=== PATIENT | male | born 1945 | race African-American/Black ===

== ENCOUNTER 2019-11-05 14:42 | Inpatient (IN) | payer OTHER, MEDICARE ==
[~2019-11-05] VITALS: Ht 180.3 cm; Wt 87.8 kg
--- NOTE | 2019-11-05 14:51 | Emergency Room Report ---
History of Present Illness General Source: Patient, EMS Present Illness HPI Patient is a 74-year-old male brought in by EMS for chest pain. Onset of symptoms 1 hour prior to arrival. Prior history of bilateral lower extremity ulcers and gangrene. Patient was sent in from [facility]. Has been having increased difficulty with breathing. Patient is chronically bedridden. Primary care physician is Dr. Zenon Bradley. Allergies: Coded Allergies: No Known Allergies (Unverified , 11/05/19) Patient History Past Medical History: see triage record Reviewed Nursing Documentation: PMH: Agreed; PSxH: Agreed Review of Systems All Other Systems: limited - Limited by poor cooperation. Physical Exam General Appearance: alert, Chronically Ill Neck: limited range of motion Respiratory: chest non-tender, decreased breath sounds Cardiovascular #1: edema - Bilateral lower extremity edema and discoloration with foul smell Gastrointestinal: hernia - Ventral hernia easily reducible, other Neurologic: alert, oriented x3, motor weakness - Lateral lower extremity weakness Skin: other - Lateral lower extremity discoloration and rash. Medical Decision Making Diagnostic Impression: Primary Impression: Chest pain Additional Impressions: Urinary tract infection Atrial fibrillation with RVR Suspected 2019 novel coronavirus infection ER Course Patient presented for chest discomfort. Differential diagnosis include was not limited to sepsis, pneumonia, pulmonary embolism, coronavirus infection among others. Because of complexity of patient's case laboratory tests and imaging studies were ordered. EKG interpreted by me showed atrial fibrillation with a rate Patient's troponin was noted to be somewhat elevated. D-dimer was also positive. Troponin was noted to be elevated. Chest x-ray 1 view interpreted by me showed right-sided effusion with bilateral patchy hazy infiltrate. Patient discussed with Dr. Bradley who agreed to admit the patient for further evaluation and treatment. Labs Test 11/05/19 15:48 Urine Color Yellow Urine Appearance Slightly cloudy Urine pH 5 (4.5-8.0) Urine Specific [place] 1.015 (1.005-1.035) Urine Protein 3+ (NEGATIVE) Urine Glucose (UA) Negative (NEGATIVE) Urine Ketones Negative (NEGATIVE) Urine Blood 4+ (NEGATIVE) Urine Nitrite Negative (NEGATIVE) Urine Bilirubin 1+ (NEGATIVE) Urine Ictotest Negativ e (NEGATIVE) Urine Urobilinogen 8 MG/DL (0.0-1.0) Urine Leukocyte Esterase 3+ (NEGATIVE) Urine RBC 10-15 /HPF (0 - 0) Urine WBC 40-60 /HPF (0 - 0) Urine Squamous Epithelial Cells Occasional /LPF Urine Amorphous Sediment Many /LPF (NONE) Urine Bacteria Many /HPF (NONE) EKG Diagnostic Results Rate: other - Atrial fibrillation Status: unchanged Disposition: ADMITTED INPATIENT Condition: Serious Stephon Ardon MD Nov 05, 2019 14:51
[2019-11-05] MEDS ORDERED: ARGINAID POWDE1 EACH PO (15:20)
[2019-11-05] MEDS ORDERED: BACITRACIN ZIN1 EACH TOPIC (15:20)
[2019-11-05] MEDS ORDERED: ELIQUIS2.5 MG PO (15:20)
[2019-11-05] MEDS ORDERED: BETADINE1 EAC1 TP (16:04)
[2019-11-05] MEDS ORDERED: COLLAGENASE1 EACH MC (16:10)
[2019-11-05] MEDS ORDERED: IBUPROFEN600 M1 ORAL (16:10)
[2019-11-05] MEDS ORDERED: DIGOXIN125 MCG ORAL (16:10)
[2019-11-05] MEDS ORDERED: NORCO 10-325 T1 EACH ORAL (16:10)
[2019-11-05] MEDS ORDERED: NORCO 5-325 TA1 EAC1 ORAL (16:10)
[2019-11-05] MEDS ORDERED: FUROSEMIDE40 MG ORAL (16:10)
[2019-11-05] MEDS ORDERED: NEPHROVITE1 TAB ORAL (16:10)
[2019-11-05] MEDS ORDERED: COREG3.125 MG ORAL (16:10)
[2019-11-05] MEDS ORDERED: GLUCAGON EMERGEN1 MG IJ (16:10)
[2019-11-05] MEDS ORDERED: HYDROGEL3000 GM MC (16:10)
[2019-11-05] MEDS ORDERED: FAMOTIDINE20 MG ORAL (16:10)
[2019-11-05 16:12] LABS: APPEARANCE,URINE SLIGHTLY CLOUDY; BILIRUBIN, URINE 1+ (NEGATIVE); GLUCOSE, URINE (UA) NEGATIVE (NEGATIVE); KETONES,URINE NEGATIVE (NEGATIVE); LEUKOCYTE ESTERASE ,URINE 3+ (NEGATIVE); NITRITE,URINE NEGATIVE (NEGATIVE); PH,URINE 5 (4.5-8.0); PROTEIN,URINE 3+ (NEGATIVE); UROBILINOGEN,URINE 8 MG/DL (0.0-1.0)
[2019-11-05 16:14] LABS: COLOR,URINE YELLOW
[2019-11-05] MEDS ORDERED: ZINC SULFATE220 M1 ORAL (16:27)
[2019-11-05] MEDS ORDERED: FLOMAX0.4 MG ORAL (16:27)
[2019-11-05] MEDS ORDERED: SPIRONOLACTONE100 MG ORAL (16:27)
[2019-11-05] MEDS ORDERED: ZOFRAN4 M3 ORAL (16:27)
[2019-11-05 16:59] LABS: ANION GAP 4 mmol/L (5-15); BLOOD UREA NITROGEN 40 mg/dL (7-18); CALCIUM 7.8 MG/DL (8.5-10.1); CARBON DIOXIDE 33 MMOL/L (21-32); CHLORIDE 95 MMOL/L (98-107); POTASSIUM 3.8 MMOL/L (3.5-5.1); SODIUM 132 MMOL/L (136-145)
[2019-11-05 17:00] LABS: INR 1.6 (0.9-1.1)
[2019-11-05 17:15] LABS: HEMATOCRIT 31.7 % (42.0-52.0); HEMOGLOBIN 9.8 G/DL (14.2-18.0); MEAN CORPUSCULAR VOLUME 93 FL (80-99); PLATELET COUNT 123 K/UL (150-450); WHITE BLOOD COUNT 5.7 K/UL (4.8-10.8)
[2019-11-05 17:16] LABS: ALANINE AMINOTRANSFERASE 23 U/L (12-78); ALBUMIN 1.3 G/DL (3.4-5.0); ALBUMIN/GLOBULIN RATIO 0.3 (1.0-2.7); ALKALINE PHOSPHATASE 136 U/L (46-116); ASPARTATE AMINO TRANSFERASE 29 U/L (15-37); BILIRUBIN,TOTAL 2.1 MG/DL (0.2-1.0)
[2019-11-05 17:17] LABS: BILIRUBIN,DIRECT 1.8 MG/DL (0.0-0.3)
[2019-11-05 17:49] VITALS: BP 135/78
[2019-11-05] MEDS ORDERED: Morphine Sulfate 2mg/ml Inj(IV/IM USE ONLY) IVP ONE (18:15)
[2019-11-05] MEDS ORDERED: Aspirin Baby 81mg ORAL ONE (18:15)
[2019-11-05] MEDS ORDERED: Enoxaparin 80mg Inj SUBQ ONE (18:15)
[2019-11-05] MEDS ORDERED: Piperacillin/Tazobactam 3.375 GM in NS 110 ML IVPB ONE (18:30)
[2019-11-05 19:50] VITALS: BP 118/43
[2019-11-05] MEDS ORDERED: HYDROcodone/Acetamin 5/325 tab ORAL ONE (20:15)
[2019-11-05 21:30] VITALS: BP 98/51
--- NOTE | 2019-11-05 23:08 | Diagnostic Imaging Report ---
EXAM: XR Abdomen, 2 Views CLINICAL HISTORY: NGT TECHNIQUE: Frontal view of the abdomen/pelvis with upright view of the abdomen. COMPARISON: chest radiograph 4 hours previous FINDINGS: Intraperitoneal space: No free air. Gastrointestinal tract: Gas-filled small and large bowel loops limited in evaluation. Bones/joints: Please refer to immediate prior chest radiograph for discussion of chest findings. Degenerative spine findings. Tubes, lines and devices: Enteric tube with tip and proximal sideport below the gastroesophageal junction. IMPRESSION: 1. Enteric tube with tip and proximal sideport below the gastroesophageal junction. 2. Please refer to immediate prior chest radiograph for discussion of chest findings. 3. Gas-filled small and large bowel loops limited in evaluation.
--- NOTE | 2019-11-05 23:10 | Diagnostic Imaging Report ---
EXAM: XR Chest, 1 View CLINICAL HISTORY: S/P INTUB TECHNIQUE: Frontal view of the chest. COMPARISON: 4 hours prior FINDINGS: Lungs: Overall similar appearing bilateral extensive lung opacities concerning for multifocal pneumonia and/or pulmonary edema in the proper context. Unchanged retrocardiac atelectasis or consolidation. Pleural space: Unchanged moderate right and trace left pleural effusions with passive atelectasis. No pneumothorax. Heart: Unremarkable. No cardiomegaly. Mediastinum: Unremarkable. Bones/joints: Unremarkable. Tubes, lines and devices: Interval intubation, ETT 5.7 cm above stefanie. Enteric tube with tip and proximal sideport below the gastroesophageal junction. IMPRESSION: 1. Interval intubation, ETT 5.7 cm above stefanie. 2. Enteric tube with tip and proximal sideport below the gastroesophageal junction. 3. Overall similar appearing bilateral extensive lung opacities concerning for multifocal pneumonia and/or pulmonary edema in the proper context. 4. Unchanged moderate right and trace left pleural effusions with passive atelectasis. 5. Unchanged retrocardiac atelectasis or consolidation.
--- NOTE | 2019-11-05 23:24 | Emergency Room Report ---
History of Present Illness General Chief Complaint: Chest Pain Source: Medical Record, EMS Present Illness HPI This is a 74-year-old male, half-way patient, who was just admitted to telemetry for sepsis and lower extremity gangrene. A CODE BLUE was called because patient became very bradycardic and blood pressure dropped. Patient also stopped breathing. On my arrival, he has assisted respiration with bag valve mask by technical architect. I proceeded to intubate the patient. I also placed a central line in case he need pressors. Patient was sent to the ICU. Primary care doctor notified. Allergies: Coded Allergies: No Known Allergies (Unverified , 11/05/19) COVID-19 Screening Contact w/high risk pt: No Recent Travel to affected area: No Experienced COVID-19 symptoms?: No COVID-19 Testing performed NATIONAL FACILITIES MANAGER: No Patient History Past Medical History: see triage record, old chart reviewed Past Surgical History: other Pertinent Family History: none Social History: Denies: smoking Immunizations: other Reviewed Nursing Documentation: PMH: Agreed; PSxH: Agreed Nursing Documentation-PMH Past Medical History: No History, Except For Hx Cardiac Problems: Yes - A FIB, CHF Hx Hypertension: Yes Hx COPD: No - PLEURAL EFFUSION Hx Gastrointestinal Problems: No - ENCEPHALOPATHY, GANGRENE, MULT PRESSURE ULCERS, AKD History Of Psychiatric Problem: Yes - SUBSTANCE ABUSE Hx Cerebrovascular Accident: No - DYSPHAGIA, PROSTATIC HYPERPLASIA Review of Systems Respiratory: Reports: shortness of breath All Other Systems: limited - Secondary to his condition Physical Exam Vital Signs Date Time Temp Pulse Resp B/P (MAP) Pulse Ox O2 Delivery O2 Flow Rate FiO2 11/05/19 14:47 98.4 92 18 130/76 (94) 94 Nasal Cannula 2.0 11/05/19 22:25 100 Vitals with hypotension and hypoxia Sp02 EP Interpretation: abnormal General Appearance: severe distress, Stupor Head: normocephalic, atraumatic Eyes: bilateral eye PERRL, bilateral eye EOMI ENT: dry mucus membranes - Mucus in oropharynx, other Neck: full range of motion, supple, no meningismus Respiratory: chest non-tender, crackles, rhonchi Cardiovascular #1: regular rate, rhythm, no murmur Gastrointestinal: normal bowel sounds, non tender, no mass, no organomegaly, no bruit, non-distended Musculoskeletal: other - Gangrene to lower extremities Neurologic: no pronator Skin: warm/dry Procedures Critical Care Time Critical Care Time Critical care is mandated in this patient who presented with aspiratory collapse. Patient require my urgent intervention to attenuate the risks of metabolic collapse which may lead to cardiovascular collapse and . Critical care time is 35 minutes excluding any reportable procedure. Critical care time included evaluation, multiple reevaluation, looking at old charts, interpreting laboratory and diagnostic data, discussing case with patient and family and consultants, and charting. Central Line Central Line : Consent: Emergent Central Line Lumen: triple Maximal Sterile Barrier Tech: yes cap, yes mask, yes sterile gown, yes sterile gloves, yes large sterile sheet, yes hand hygiene, yes chlorhexidine prep Central Line Postion: femoral (R) Complications: none Central Line Post Position: sutured Attempts: One Patient Tolerated: Well Complications: None Intubation Intubation : Consent: Verbal Intubation Method: orotracheal Tube Size (cm): 7.5 Breath Sounds after Intubation: equal Intubation Complications: no complications Post Intubation Xray: Yes Progress/Xray Impression: Endotracheal tube in good position. Bilateral infiltrates. No pneumothora Attempts: One Patient Tolerated: Well Complications: None Medical Decision Making Diagnostic Impression: Primary Impression: Respiratory failure requiring intubation Additional Impressions: Septic shock HCAP (healthcare-associated pneumonia) ER Course Patient with respiratory arrest requiring intubation. Most likely secondary to septic shock and pneumonia. May have COVID pneumonia. Patient intubated and central line placed. Patient transferred in ICU. Chest X-Ray Diagnostic Results Chest X-Ray Diagnostic Results : Chest X-Ray Ordered: Yes # of Views/Limited/Complete: 1 View Indication: Shortness of Breath EP Interpretation: Yes Interpretation: no effusion, no pneumothorax, other - Bilateral infiltrates. Endotracheal tube at sternal notch. Impression: Other - Status post intubation. Bilateral infiltraits. Electronically Signed by: Rancho Clay MD Last Vital Signs Date Time Temp Pulse Resp B/P (MAP) Pulse Ox O2 Delivery O2 Flow Rate FiO2 11/05/19 22:25 88 16 100 11/05/19 22:25 98 Mechanical Ventilator 11/05/19 21:25 98.4 118/43 2.0 Status: improved Disposition: ADMITTED INPATIENT Condition: Critical Referrals: Zenon Bradley MD (PCP) Rancho Clay MD Nov 05, 2019 23:24
[2019-11-06] VITALS (51 sets, daily range): BP systolic 82–169; BP diastolic 37–155
[2019-11-06 05:23] LABS: HEMATOCRIT 27.6 % (42.0-52.0); HEMOGLOBIN 9.2 G/DL (14.2-18.0); MEAN CORPUSCULAR VOLUME 86 FL (80-99); PLATELET COUNT 88 K/UL (150-450); RED CELL DISTRIBUTION WIDTH 13.8 % (11.6-14.8); WHITE BLOOD COUNT 5.2 K/UL (4.8-10.8)
[2019-11-06 05:51] LABS: ALANINE AMINOTRANSFERASE 25 U/L (12-78); ALBUMIN 1.3 G/DL (3.4-5.0); ALBUMIN/GLOBULIN RATIO 0.3 (1.0-2.7); ALKALINE PHOSPHATASE 123 U/L (46-116); ANION GAP 5 mmol/L (5-15); ASPARTATE AMINO TRANSFERASE 27 U/L (15-37); BILIRUBIN,TOTAL 2.3 MG/DL (0.2-1.0); BLOOD UREA NITROGEN 42 mg/dL (7-18); CALCIUM 7.4 MG/DL (8.5-10.1); CARBON DIOXIDE 32 MMOL/L (21-32); CHLORIDE 95 MMOL/L (98-107); CREATININE 2.3 MG/DL (0.55-1.30); POTASSIUM 3.4 MMOL/L (3.5-5.1); SODIUM 132 MMOL/L (136-145)
--- NOTE | 2019-11-06 08:45 | History and Physical Report ---
DATE OF ADMISSION: 11/05/2019 This is the first admission to [facility] of this 74-year-old patient because of sepsis and suspicion of COVID syndrome. HISTORY OF PRESENT ILLNESS: The patient is a resident of an extended care facility from where he arrived in the facility several weeks ago. He is known to have several chronic medical syndrome, has been stable on his current medication. On the day of admission, developed chest pain intermittently, was getting progressively worse. He was transferred to [facility] ER where he was found to have urinary tract infection, sepsis, and pneumonia. He was transferred initially to the subacute unit. subacute, he developed hypotension, bradycardia, he had to be intubated and placed on mechanical ventilation and now is in the ICU. PAST MEDICAL HISTORY: The patient has cerebrovascular accident in the past. He has high blood pressure, COPD, atrial fibrillation, and history of congestive heart failure. In the ER, he was found to have pleural effusion. His response was encephalopathic. His lower extremities show multiple dry gangrene in addition to multiple skin ulcers on the lower extremity. ALLERGIES: No known drug allergy. MEDICATIONS: The patient has intense treatment for his decubitus ulcer. He is on 2.5 mg b.i.d. He is on carvedilol 3.125 mg b.i.d. He is on digoxin 0.125 mg daily, famotidine 20 mg b.i.d., furosemide 40 mg daily. He is on ibuprofen 600 mg t.i.d., ondansetron 4 mg q.4h. p.r.n. for nausea and vomiting, spironolactone 100 mg daily, tamsulosin 0.4 mg daily, vitamin B 50 mg daily, and zinc sulfate 220 mg daily. FAMILY HISTORY: Not contributory. SOCIAL HISTORY: He is single. Born in [place]. 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 HABITS: The patient did not smoke, drink, or use illicit drugs. REVIEW OF SYSTEMS: The patient is unable to give any information regarding his state of health. PHYSICAL EXAMINATION: VITAL SIGNS: Blood pressure prior to the intubation was 116/43, his pulse is 110, respirations are 21, and temperature 98.4. HEENT: Eyes were normal. Pupils were round, equal, and reactive to light. Sclerae were white. Conjunctivae were pale. Extraocular movements could not assessed. Temporal arteries were palpable bilaterally. There was no bilateral temporal wasting. Visual field to confrontation and neglect sign could not be assessed. ENT, mucous membranes were not dehydrated. Auditory canals were clear and tympanic membranes could not be visualized. Nasal cavity was not congested. Nasal septum was intact. Soft palate and uvula could not be visualized. Tongue was dry, midline, and normally papillated. NECK: Supple. There was no goiter. No mass. No lymphadenopathy. There was no JVD. No bruits. Carotid upstroke was 1+. LUNGS: There were bilateral rhonchi at both bases. HEART: PMI was fifth left intercostal space, midclavicular line with irregular heart sounds and no bruits. ABDOMEN: Soft and nontender without organomegaly. There were no masses palpable. Normal bowel sounds without bruits. There was no guarding. No rebound tenderness. No ascites. No hernia. No CVA tenderness. Liver span was 8 cm, smooth, and nontender. EXTREMITIES: No cyanosis, no clubbing, and no edema. Extremities were in dressing. It was done meticulously in the emergency room with instructions not to remove the dressing for the next 24 hours. NEUROLOGICAL: Reflexes in biceps, triceps, and brachioradialis were present. Patellar retinaculum could not be obtained. Plantars were in extension on the right and flexion on the left. Cranial nerves II through XII were symmetric and equal. Cerebellar function, there was no tremor. No nystagmus. No extrapyramidal rigidity. Sensory exam to pinprick, cotton touch, position, and motor strength could not be assessed because the patient's clinical condition. LABORATORY AND DIAGNOSTIC DATA: Hemoglobin is 9.8, hematocrit 31.2 with MCV of 93, WBC of 5.7, and platelets 123,000. His BUN and creatinine are 40 and 2.0 respectively. His sodium is 132, potassium is 3.8, chloride 95, CO2 is 33. His calcium is 7.8. His total bilirubin is 2.1. His troponin was . His CRP was 18.8. His albumin is 1.3 and total protein is 5.6. No imaging study available at the time of my dictation. His lactic acid is 1.3. IMPRESSION: The patient septic shock. He was intubated and placed on mechanical ventilation 500 of 18, FiO2 of 30, and PEEP of 5. Pulmonary senior wind energy consultant, infectious disease senior wind energy consultant, and nephrology senior wind energy consultant will be called to assist in the management of this case. Repeat laboratory tests will be done in a.m. The patient is diabetic. A1c will be requested. Accu-Chek q.6h. NG tube will be inserted. Zenon Bradley M.D. DR: YOSELIN JOB#: [id number] CC:
--- NOTE | 2019-11-06 09:10 | Diagnostic Imaging Report ---
Procedure: XRAY Chest 1v Reason for study: Chest pain Comparison films: None. FINDINGS: A single one view chest is obtained. Vascular markings are indistinct. Diffuse bilateral alveolar densities noted suggestive of pulmonary edema. Superimposed infiltrates cannot be excluded. Cardiac silhouette is partially obscured. There are bilateral effusions right greater than left. The bony thorax appear unremarkable. IMPRESSION: Bilateral diffuse alveolar densities likely pulmonary edema. Superimposed infiltrates cannot be excluded. Bilateral effusions right greater than left.
[2019-11-06] MEDS ORDERED: LORazepam Inj 2mg/ml 1ml IV PRN (11:00)
[2019-11-06] MEDS ORDERED: Albuterol/Ipratropium 3ml neb HHN PRN (11:00)
--- NOTE | 2019-11-06 11:07 | Consultation ---
History of Present Illness General Date patient seen: Nov 06, 2019 Chief Complaint: Chest Pain Present Illness HPI 74 year old male with Hx of CHF, pleural effusion, COPD, multiple dry gangrene of lower extremities, assisted resident brought in by paramedics with CC or chest pain. He was found to be in pulmonary edema and was admitted to [facility]. Shortly after arrival he had a cardiac arrest and was revived, intubated and transferred to ICU. Allergies: Coded Allergies: No Known Allergies (Unverified , 11/05/19) Medication History Scheduled Bacitracin Zinc* (Bacitracin Zinc*), 1 APPLIC TOPIC THREE TIMES A DAY, (Reported ) Carvedilol (Coreg), 3.125 MG ORAL EVERY 12 HOURS, (Reported) Digoxin* (Digoxin*), 125 MCG ORAL DAILY, (Reported) Famotidine* (Pepcid 20mg tablet*), 20 MG ORAL DAILY, (Reported) Furosemide* (Lasix*), 40 MG ORAL DAILY, (Reported) Ibuprofen* (Motrin*), 200 MG ORAL Q4HR, (Reported) Spironolactone* (Spironolactone*), 100 MG ORAL DAILY, (Reported) Tamsulosin HCl (Flomax), 0.4 MG ORAL DAILY, (Reported) Vitamin B Cmplx/Vit C/Folic AC (Nephro-Aishwarya Tablet), 1 TAB ORAL DAILY, (Reported ) Zinc Sulfate (Zinc Sulfate*), 220 MG ORAL DAILY, (Reported) Scheduled PRN Hydrocodone Bit/Acetaminophen 10-325* ([place] 10-325*), 1 TAB ORAL Q6H PRN for For Pain, (Reported) Hydrocodone Bit/Acetaminophen 5-325* ([place] 5-325 Tablet*), 1 TAB ORAL Q6H PRN for FOR PAIN, (Reported) Ondansetron* (Zofran*), 4 MG ORAL Q6H PRN for Nausea & Vomiting, (Reported) Miscellaneous Medications Apixaban (Eliquis), 2.5 MG PO, (Reported) Arginine/Ascorbate Sod/Aishwarya AC (Arginaid Powder), 1 EACH PO, (Reported) Collagenase Clostridium Hist. (Collagenase), 1 EACH MC, (Reported) Gel Base No.41 (Hydrogel), 3,000 GM MC, (Reported) Glucagon,Human Recombinant (Glucagon Emergency Kit), 1 MG IJ, (Reported) Povidone-Iodine (Betadine), 1 EACH TP, (Reported) Patient History Healthcare decision maker N Resuscitation status Advanced Directive on File Past Medical/Surgical History Past Medical/Surgical History: (1) Alzheimer disease (2) Dry gangrene (3) Cerebrovascular accident (CVA) (4) COPD (chronic obstructive pulmonary disease) Review of Systems All Other Systems: negative except mentioned in HPI Physical Exam General Appearance: WD/WN, no apparent distress Lines, tubes and drains: peripheral, central line HEENT: normocephalic, atraumatic Neck: non-tender, normal alignment Respiratory/Chest: chest wall non-tender, lungs clear Breasts: no masses Cardiovascular/Chest: normal peripheral pulses, normal rate Abdomen: normal bowel sounds, non tender Genitourinary/Rectal: normal genital exam, normal rectal exam Extremities: normal range of motion Last 24 Hour Vital Signs Date Time Temp Pulse Resp B/P (MAP) Pulse Ox O2 Delivery O2 Flow Rate FiO2 11/06/19 10:00 92 17 112/47 (68) 97 11/06/19 09:30 92 19 109/41 (63) 100 11/06/19 09:00 94 18 108/55 (72) 99 11/06/19 08:30 92 17 119/48 (71) 98 11/06/19 08:00 95 11/06/19 08:00 Mechanical Ventilator 11/06/19 08:00 100 11/06/19 08:00 99.1 88 17 118/44 (68) 100 11/06/19 07:30 88 16 119/47 (71) 98 11/06/19 07:07 83 16 40 11/06/19 07:00 89 16 109/50 (69) 97 11/06/19 06:30 90 18 117/40 (65) 100 11/06/19 06:00 87 16 111/47 (68) 100 11/06/19 06:00 111/47 11/06/19 05:34 119/57 11/06/19 05:30 89 17 119/57 (77) 99 11/06/19 05:00 87 17 127/47 (73) 99 11/06/19 05:00 127/47 11/06/19 04:30 93 18 106/54 (71) 98 11/06/19 04:00 98.6 89 16 103/52 (69) 98 11/06/19 04:00 103/52 11/06/19 04:00 100 11/06/19 04:00 Mechanical Ventilator 11/06/19 04:00 86 11/06/19 03:30 99 21 131/92 (105) 98 11/06/19 03:00 97 24 137/59 (85) 100 11/06/19 03:00 137/59 11/06/19 02:57 99 24 40 11/06/19 02:30 89 16 133/92 (106) 100 11/06/19 02:00 89 18 125/86 (99) 100 11/06/19 02:00 125/86 11/06/19 01:30 97 22 114/56 (75) 73 11/06/19 01:00 100 19 117/73 (88) 100 11/06/19 01:00 117/73 11/06/19 00:45 101 17 169/155 (160) 100 11/06/19 00:45 169/155 11/06/19 00:30 97 17 152/97 (115) 100 11/06/19 00:03 68/45 11/06/19 00:00 100 11/06/19 00:00 98.6 94 20 107/77 (87) 99 11/06/19 00:00 97 11/05/19 22:25 88 16 100 11/05/19 22:25 88 16 98 Mechanical Ventilator 100 11/05/19 21:30 98.3 61 18 98/51 (67) 96 61 11/05/19 21:30 Room Air 11/05/19 21:25 98.4 108 21 118/43 98 Nasal Cannula 2.0 11/05/19 20:46 98.4 11/05/19 19:50 98.4 108 21 118/43 98 Nasal Cannula 2.0 11/05/19 18:45 98.4 11/05/19 17:50 92 18 Nasal Cannula 2.0 11/05/19 17:49 98.4 98 18 135/78 98 Nasal Cannula 2.0 11/05/19 14:47 98.4 92 18 130/76 (94) 94 Nasal Cannula 2.0 Intake and Output 11/05/19 11/06/19 19:00 07:00 Intake Total 1057.500 ml Output Total 160 ml Balance 897.500 ml Intake Free Water 60 ml IV Total 997.500 ml Output Urine Total 160 ml # Voids 1 Laboratory Tests Test 11/05/19 15:48 11/05/19 16:15 11/05/19 23:30 11/06/19 04:00 Urine Color Yellow Urine Appearance Slightly cloudy Urine pH 5 (4.5-8.0) Urine Specific [place] 1.015 (1.005-1.035) Urine Protein 3+ (NEGATIVE) H Urine Glucose (UA) Negative (NEGATIVE) Urine Ketones Negative (NEGATIVE) Urine Blood 4+ (NEGATIVE) H Urine Nitrite Negative (NEGATIVE) Urine Bilirubin 1+ (NEGATIVE) H Urine Ictotest Negativ e (NEGATIVE) Urine Urobilinogen 8 MG/DL (0.0-1.0) H Urine Leukocyte Esterase 3+ (NEGATIVE) H Urine RBC 10-15 /HPF (0 - 0) H Urine WBC 40-60 /HPF (0 - 0) H Urine Squamous Epithelial Cells Occasional /LPF Urine Amorphous Sediment Many /LPF (NONE) H Urine Bacteria Many /HPF (NONE) H White Blood Count 5.7 K/UL (4.8-10.8) 5.2 K/UL (4.8-10.8) Red Blood Count 3.40 M/UL (4.70-6.10) L 3.20 M/UL (4.70-6.10) L Hemoglobin 9.8 G/DL (14.2-18.0) L 9.2 G/DL (14.2-18.0) L Hematocrit 31.7 % (42.0-52.0) L 27.6 % (42.0-52.0) L Mean Corpuscular Volume 93 FL (80-99) 86 FL (80-99) Mean Corpuscular Hemoglobin 28.7 PG (27.0-31.0) 28.7 PG (27.0-31.0) Mean Corpuscular Hemoglobin Concent 30.7 G/DL (32.0-36.0) L 33.2 G/DL (32.0-36.0) Red Cell Distribution Width 16.0 % (11.6-14.8) H 13.8 % (11.6-14.8) Platelet Count 123 K/UL (150-450) L 88 K/UL (150-450) L Mean Platelet Volume 8.4 FL (6.5-10.1) 6.0 FL (6.5-10.1) L Neutrophils (%) (Auto) % (45.0-75.0) % (45.0-75.0) Lymphocytes (%) (Auto) % (20.0-45.0) % (20.0-45.0) Monocytes (%) (Auto) % (1.0-10.0) % (1.0-10.0) Eosinophils (%) (Auto) % (0.0-3.0) % (0.0-3.0) Basophils (%) (Auto) % (0.0-2.0) % (0.0-2.0) Differential Total Cells Counted 100 100 Neutrophils % (Manual) 90 % (45-75) H 91 % (45-75) H Lymphocytes % (Manual) 4 % (20-45) L 5 % (20-45) L Monocytes % (Manual) 2 % (1-10) 2 % (1-10) Eosinophils % (Manual) 0 % (0-3) 1 % (0-3) Basophils % (Manual) 0 % (0-2) 1 % (0-2) Band Neutrophils 4 % (0-8) 0 % (0-8) Platelet Estimate Decreased L Decreased L Platelet Morphology Normal Normal Hypochromasia 1+ 2+ Anisocytosis 1+ 1+ Prothrombin Time 17.5 SEC (9.30-11.50) H Prothromb Time International Ratio 1.6 (0.9-1.1) H Activated Partial Thromboplast Time 48 SEC (23-33) H D-Dimer 7.10 mg/L FEU (0.00-0.49) H Sodium Level 132 MMOL/L (136-145) L 132 MMOL/L (136-145) L Potassium Level 3.8 MMOL/L (3.5-5.1) 3.4 MMOL/L (3.5-5.1) L Chloride Level 95 MMOL/L (98-107) L 95 MMOL/L (98-107) L Carbon Dioxide Level 33 MMOL/L (21-32) H 32 MMOL/L (21-32) Anion Gap 4 mmol/L (5-15) L 5 mmol/L (5-15) Blood Urea Nitrogen 40 mg/dL (7-18) H 42 mg/dL (7-18) H Creatinine 2.0 MG/DL (0.55-1.30) H 2.3 MG/DL (0.55-1.30) H Estimat Glomerular Filtration Rate 39.5 mL/min (>60) 33.7 mL/min (>60) Glucose Level 120 MG/DL (74-106) H 97 MG/DL (74-106) Lactic Acid Level 1.30 mmol/L (0.4-2.0) Calcium Level 7.8 MG/DL (8.5-10.1) L 7.4 MG/DL (8.5-10.1) L Total Bilirubin 2.1 MG/DL (0.2-1.0) H 2.3 MG/DL (0.2-1.0) H Direct Bilirubin 1.8 MG/DL (0.0-0.3) H 2.0 MG/DL (0.0-0.3) H Aspartate Amino Transf (AST/SGOT) 29 U/L (15-37) 27 U/L (15-37) Alanine Aminotransferase (ALT/SGPT) 23 U/L (12-78) 25 U/L (12-78) Alkaline Phosphatase 136 U/L (46-116) H 123 U/L (46-116) H Troponin I 0.066 ng/mL (0.000-0.056) C-Reactive Protein, Quantitative 18.8 mg/dL (0.00-0.90) H Total Protein 5.6 G/DL (6.4-8.2) L 5.2 G/DL (6.4-8.2) L Albumin 1.3 G/DL (3.4-5.0) L 1.3 G/DL (3.4-5.0) L Globulin 4.3 g/dL 3.9 g/dL Albumin/Globulin Ratio 0.3 (1.0-2.7) L 0.3 (1.0-2.7) L Lipase 76 U/L (73-393) Digoxin Level 1.4 NG/ML (0.5-2.0) Arterial Blood pH 7.457 (7.350-7.450) Arterial Blood Partial Pressure CO2 44.4 mmHg (35.0-45.0) Arterial Blood Partial Pressure O2 199.1 mmHg (75.0-100.0) H Arterial Blood HCO3 30.7 mmol/L (22.0-26.0) H Arterial Blood Oxygen Saturation 98.6 % (95-100) Arterial Blood Base Excess 6.1 (-2-2) H Manny Test Positive Erythrocyte Sedimentation Rate 45 MM/HR (0-20) H Hemoglobin A1c 7.4 % (4.3-6.0) H Pro-B-Type Natriuretic Peptide > 31779 pg/mL (0-125) H Microbiology Date/Time Source Procedure Growth Status 11/05/19 16:20 Blood Blood Culture - Preliminary Resulted 11/05/19 16:10 Blood Blood Culture - Preliminary Resulted 11/05/19 15:48 Urine,Clean Catch Urine Culture - Preliminary Gram Negative Bacillus 1 Resulted Height (Feet): 5 Height (Inches): 11.00 Weight (Pounds): 183 Medications Current Medications Medications (Trade) Dose Ordered Sig/Briana Route PRN Reason Start Time Stop Time Status Last Admin Dose Admin Chlorhexidine Gluconate (Jenna-Hex 2%) 1 applic DAILY@2000 TOPIC 11/06/19 20:00 02/04/20 19:59 Norepinephrine Bitartrate 4 mg/ Dextrose 250 ml @ 0 mls/hr Q24H IV 11/05/19 23:30 12/05/19 23:29 11/06/19 05:34 Sodium Chloride 1,000 ml @ 125 mls/hr Q8H IV 11/05/19 23:45 12/05/19 23:44 11/06/19 08:28 Assessment/Plan Problem List: (1) Respiratory failure requiring intubation ICD Codes: J96.90 - Respiratory failure, unspecified, unspecified whether with hypoxia or hypercapnia; R65.21 - Severe sepsis with septic shock SNOMED: 095709604, 909635287 (2) Cardiac arrest ICD Codes: I46.9 - Cardiac arrest, cause unspecified SNOMED: 603960494 (3) HCAP (healthcare-associated pneumonia) ICD Codes: J18.9 - Pneumonia, unspecified organism SNOMED: 547169468, 631056023 (4) Atrial fibrillation with RVR ICD Codes: I48.91 - Unspecified atrial fibrillation SNOMED: 806797219353171 (5) Suspected 2019 novel coronavirus infection ICD Codes: Z20.828 - Contact with and (suspected) exposure to other viral communicable diseases SNOMED: 947001884 (6) Alzheimer disease ICD Codes: G30.9 - Alzheimer's disease, unspecified; F02.80 - Dementia in other diseases classified elsewhere without behavioral disturbance SNOMED: 36290838 (7) Dry gangrene ICD Codes: I96 - Gangrene, not elsewhere classified SNOMED: 37102049, 926488861 (8) Cerebrovascular accident (CVA) ICD Codes: I63.9 - Cerebral infarction, unspecified SNOMED: 732024868 (9) COPD (chronic obstructive pulmonary disease) ICD Codes: J44.9 - Chronic obstructive pulmonary disease, unspecified SNOMED: 29195548 Assessment/Plan: Respiratory: monitor respiratory rate, adjust FIO2, CXR Cardiac: continue pressors - on Pressures, 2 ugm of Levophed, continue to monitor HR/BP Renal: F/U I&O, keep IV fluid Infectious Disease: add antibiotics, other - price culture Gastrointestinal: continue feedings/current rate Endocrine: monitor blood sugar Hematologic: monitor H/H, transfuse if hgb<8.5 Neurologic: PRN Ativan, keep patient comfortable Affect: PRN ativan Prophylaxis: Protonix Disposition: keep in ICU 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
--- NOTE | 2019-11-06 12:42 | Consultation ---
History of Present Illness General Date patient seen: Nov 06, 2019 Chief Complaint: Chest Pain Present Illness HPI 74 y/o M with hx of CHF, pleural effusion, CVA, dysphagia, BPH, HTN, Afib, COPD , LE dry gangrene, [place] resident ([facility]) presented to ED on 11/04 with chest pain. After arrival to [facility] patient had bradycardic cardiac arrest and was intubated and transferred to ICU. P Allergies: Coded Allergies: No Known Allergies (Unverified , 11/05/19) Medication History Scheduled Bacitracin Zinc* (Bacitracin Zinc*), 1 APPLIC TOPIC THREE TIMES A DAY, (Reported ) Carvedilol (Coreg), 3.125 MG ORAL EVERY 12 HOURS, (Reported) Digoxin* (Digoxin*), 125 MCG ORAL DAILY, (Reported) Famotidine* (Pepcid 20mg tablet*), 20 MG ORAL DAILY, (Reported) Furosemide* (Lasix*), 40 MG ORAL DAILY, (Reported) Ibuprofen* (Motrin*), 200 MG ORAL Q4HR, (Reported) Spironolactone* (Spironolactone*), 100 MG ORAL DAILY, (Reported) Tamsulosin HCl (Flomax), 0.4 MG ORAL DAILY, (Reported) Vitamin B Cmplx/Vit C/Folic AC (Nephro-Aishwarya Tablet), 1 TAB ORAL DAILY, (Reported ) Zinc Sulfate (Zinc Sulfate*), 220 MG ORAL DAILY, (Reported) Scheduled PRN Hydrocodone Bit/Acetaminophen 10-325* ([place] 10-325*), 1 TAB ORAL Q6H PRN for For Pain, (Reported) Hydrocodone Bit/Acetaminophen 5-325* ([place] 5-325 Tablet*), 1 TAB ORAL Q6H PRN for FOR PAIN, (Reported) Ondansetron* (Zofran*), 4 MG ORAL Q6H PRN for Nausea & Vomiting, (Reported) Miscellaneous Medications Apixaban (Eliquis), 2.5 MG PO, (Reported) Arginine/Ascorbate Sod/Aishwarya AC (Arginaid Powder), 1 EACH PO, (Reported) Collagenase Clostridium Hist. (Collagenase), 1 EACH MC, (Reported) Gel Base No.41 (Hydrogel), 3,000 GM MC, (Reported) Glucagon,Human Recombinant (Glucagon Emergency Kit), 1 MG IJ, (Reported) Povidone-Iodine (Betadine), 1 EACH TP, (Reported) Patient History Healthcare decision maker N Resuscitation status Advanced Directive on File Patient History Narrative Pmhx: as above SHx: He is single. Born in [place]. 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 The patient did not smoke, drink, or use illicit drugs. Fhx: non contributory Review of Systems All Other Systems: negative except mentioned in HPI Physical Exam Physical Exam Narrative General Appearance: WD/WN, no apparent distress Lines, tubes and drains: peripheral, central line HEENT: normocephalic, atraumatic Neck: non-tender, normal alignment Respiratory/Chest: chest wall non-tender, lungs clear Cardiovascular/Chest: normal peripheral pulses, normal rate Abdomen: normal bowel sounds, non tender Extremities: normal range of motion Last 24 Hour Vital Signs Date Time Temp Pulse Resp B/P (MAP) Pulse Ox O2 Delivery O2 Flow Rate FiO2 11/06/19 11:30 97 22 122/48 (72) 93 11/06/19 11:24 93 18 40 11/06/19 11:00 97 18 108/45 (66) 85 11/06/19 10:30 95 17 128/43 (71) 99 11/06/19 10:00 92 17 112/47 (68) 97 11/06/19 09:30 92 19 109/41 (63) 100 11/06/19 09:00 94 18 108/55 (72) 99 11/06/19 08:30 92 17 119/48 (71) 98 11/06/19 08:00 95 11/06/19 08:00 Mechanical Ventilator 11/06/19 08:00 100 11/06/19 08:00 99.1 88 17 118/44 (68) 100 11/06/19 07:30 88 16 119/47 (71) 98 11/06/19 07:07 83 16 40 11/06/19 07:00 89 16 109/50 (69) 97 11/06/19 06:30 90 18 117/40 (65) 100 11/06/19 06:00 87 16 111/47 (68) 100 11/06/19 06:00 111/47 11/06/19 05:34 119/57 11/06/19 05:30 89 17 119/57 (77) 99 11/06/19 05:00 87 17 127/47 (73) 99 11/06/19 05:00 127/47 11/06/19 04:30 93 18 106/54 (71) 98 11/06/19 04:00 98.6 89 16 103/52 (69) 98 11/06/19 04:00 103/52 11/06/19 04:00 100 11/06/19 04:00 Mechanical Ventilator 11/06/19 04:00 86 11/06/19 03:30 99 21 131/92 (105) 98 11/06/19 03:00 97 24 137/59 (85) 100 11/06/19 03:00 137/59 11/06/19 02:57 99 24 40 11/06/19 02:30 89 16 133/92 (106) 100 11/06/19 02:00 89 18 125/86 (99) 100 11/06/19 02:00 125/86 11/06/19 01:30 97 22 114/56 (75) 73 11/06/19 01:00 100 19 117/73 (88) 100 11/06/19 01:00 117/73 11/06/19 00:45 101 17 169/155 (160) 100 11/06/19 00:45 169/155 11/06/19 00:30 97 17 152/97 (115) 100 11/06/19 00:03 68/45 11/06/19 00:00 100 11/06/19 00:00 98.6 94 20 107/77 (87) 99 11/06/19 00:00 97 11/05/19 22:25 88 16 100 11/05/19 22:25 88 16 98 Mechanical Ventilator 100 11/05/19 21:30 98.3 61 18 98/51 (67) 96 61 11/05/19 21:30 Room Air 11/05/19 21:25 98.4 108 21 118/43 98 Nasal Cannula 2.0 11/05/19 20:46 98.4 11/05/19 19:50 98.4 108 21 118/43 98 Nasal Cannula 2.0 11/05/19 18:45 98.4 11/05/19 17:50 92 18 Nasal Cannula 2.0 11/05/19 17:49 98.4 98 18 135/78 98 Nasal Cannula 2.0 11/05/19 14:47 98.4 92 18 130/76 (94) 94 Nasal Cannula 2.0 Intake and Output 11/05/19 11/06/19 19:00 07:00 Intake Total 1057.500 ml Output Total 160 ml Balance 897.500 ml Intake Free Water 60 ml IV Total 997.500 ml Output Urine Total 160 ml # Voids 1 Laboratory Tests Test 11/05/19 15:48 11/05/19 16:15 11/05/19 23:30 11/06/19 04:00 Urine Color Yellow Urine Appearance Slightly cloudy Urine pH 5 (4.5-8.0) Urine Specific [place] 1.015 (1.005-1.035) Urine Protein 3+ (NEGATIVE) H Urine Glucose (UA) Negative (NEGATIVE) Urine Ketones Negative (NEGATIVE) Urine Blood 4+ (NEGATIVE) H Urine Nitrite Negative (NEGATIVE) Urine Bilirubin 1+ (NEGATIVE) H Urine Ictotest Negativ e (NEGATIVE) Urine Urobilinogen 8 MG/DL (0.0-1.0) H Urine Leukocyte Esterase 3+ (NEGATIVE) H Urine RBC 10-15 /HPF (0 - 0) H Urine WBC 40-60 /HPF (0 - 0) H Urine Squamous Epithelial Cells Occasional /LPF Urine Amorphous Sediment Many /LPF (NONE) H Urine Bacteria Many /HPF (NONE) H White Blood Count 5.7 K/UL (4.8-10.8) 5.2 K/UL (4.8-10.8) Red Blood Count 3.40 M/UL (4.70-6.10) L 3.20 M/UL (4.70-6.10) L Hemoglobin 9.8 G/DL (14.2-18.0) L 9.2 G/DL (14.2-18.0) L Hematocrit 31.7 % (42.0-52.0) L 27.6 % (42.0-52.0) L Mean Corpuscular Volume 93 FL (80-99) 86 FL (80-99) Mean Corpuscular Hemoglobin 28.7 PG (27.0-31.0) 28.7 PG (27.0-31.0) Mean Corpuscular Hemoglobin Concent 30.7 G/DL (32.0-36.0) L 33.2 G/DL (32.0-36.0) Red Cell Distribution Width 16.0 % (11.6-14.8) H 13.8 % (11.6-14.8) Platelet Count 123 K/UL (150-450) L 88 K/UL (150-450) L Mean Platelet Volume 8.4 FL (6.5-10.1) 6.0 FL (6.5-10.1) L Neutrophils (%) (Auto) % (45.0-75.0) % (45.0-75.0) Lymphocytes (%) (Auto) % (20.0-45.0) % (20.0-45.0) Monocytes (%) (Auto) % (1.0-10.0) % (1.0-10.0) Eosinophils (%) (Auto) % (0.0-3.0) % (0.0-3.0) Basophils (%) (Auto) % (0.0-2.0) % (0.0-2.0) Differential Total Cells Counted 100 100 Neutrophils % (Manual) 90 % (45-75) H 91 % (45-75) H Lymphocytes % (Manual) 4 % (20-45) L 5 % (20-45) L Monocytes % (Manual) 2 % (1-10) 2 % (1-10) Eosinophils % (Manual) 0 % (0-3) 1 % (0-3) Basophils % (Manual) 0 % (0-2) 1 % (0-2) Band Neutrophils 4 % (0-8) 0 % (0-8) Platelet Estimate Decreased L Decreased L Platelet Morphology Normal Normal Hypochromasia 1+ 2+ Anisocytosis 1+ 1+ Prothrombin Time 17.5 SEC (9.30-11.50) H Prothromb Time International Ratio 1.6 (0.9-1.1) H Activated Partial Thromboplast Time 48 SEC (23-33) H D-Dimer 7.10 mg/L FEU (0.00-0.49) H Sodium Level 132 MMOL/L (136-145) L 132 MMOL/L (136-145) L Potassium Level 3.8 MMOL/L (3.5-5.1) 3.4 MMOL/L (3.5-5.1) L Chloride Level 95 MMOL/L (98-107) L 95 MMOL/L (98-107) L Carbon Dioxide Level 33 MMOL/L (21-32) H 32 MMOL/L (21-32) Anion Gap 4 mmol/L (5-15) L 5 mmol/L (5-15) Blood Urea Nitrogen 40 mg/dL (7-18) H 42 mg/dL (7-18) H Creatinine 2.0 MG/DL (0.55-1.30) H 2.3 MG/DL (0.55-1.30) H Estimat Glomerular Filtration Rate 39.5 mL/min (>60) 33.7 mL/min (>60) Glucose Level 120 MG/DL (74-106) H 97 MG/DL (74-106) Lactic Acid Level 1.30 mmol/L (0.4-2.0) Calcium Level 7.8 MG/DL (8.5-10.1) L 7.4 MG/DL (8.5-10.1) L Total Bilirubin 2.1 MG/DL (0.2-1.0) H 2.3 MG/DL (0.2-1.0) H Direct Bilirubin 1.8 MG/DL (0.0-0.3) H 2.0 MG/DL (0.0-0.3) H Aspartate Amino Transf (AST/SGOT) 29 U/L (15-37) 27 U/L (15-37) Alanine Aminotransferase (ALT/SGPT) 23 U/L (12-78) 25 U/L (12-78) Alkaline Phosphatase 136 U/L (46-116) H 123 U/L (46-116) H Troponin I 0.066 ng/mL (0.000-0.056) C-Reactive Protein, Quantitative 18.8 mg/dL (0.00-0.90) H Total Protein 5.6 G/DL (6.4-8.2) L 5.2 G/DL (6.4-8.2) L Albumin 1.3 G/DL (3.4-5.0) L 1.3 G/DL (3.4-5.0) L Globulin 4.3 g/dL 3.9 g/dL Albumin/Globulin Ratio 0.3 (1.0-2.7) L 0.3 (1.0-2.7) L Lipase 76 U/L (73-393) Digoxin Level 1.4 NG/ML (0.5-2.0) Arterial Blood pH 7.457 (7.350-7.450) Arterial Blood Partial Pressure CO2 44.4 mmHg (35.0-45.0) Arterial Blood Partial Pressure O2 199.1 mmHg (75.0-100.0) H Arterial Blood HCO3 30.7 mmol/L (22.0-26.0) H Arterial Blood Oxygen Saturation 98.6 % (95-100) Arterial Blood Base Excess 6.1 (-2-2) H Manny Test Positive Erythrocyte Sedimentation Rate 45 MM/HR (0-20) H Hemoglobin A1c 7.4 % (4.3-6.0) H Pro-B-Type Natriuretic Peptide > 06133 pg/mL (0-125) H Test 11/06/19 11:13 11/06/19 11:27 Troponin I Pending Arterial Blood pH 7.524 (7.350-7.450) Arterial Blood Partial Pressure CO2 34.6 mmHg (35.0-45.0) L Arterial Blood Partial Pressure O2 65.6 mmHg (75.0-100.0) L Arterial Blood HCO3 27.9 mmol/L (22.0-26.0) H Arterial Blood Oxygen Saturation 93.5 % (95-100) L Arterial Blood Base Excess 4.9 (-2-2) H Manny Test Positive Microbiology Date/Time Source Procedure Growth Status 11/05/19 16:20 Blood Blood Culture - Preliminary Resulted 11/05/19 16:10 Blood Blood Culture - Preliminary Resulted 11/05/19 15:48 Urine,Clean Catch Urine Culture - Preliminary Gram Negative Bacillus 1 Resulted Height (Feet): 5 Height (Inches): 11.00 Weight (Pounds): 183 Medications Current Medications Medications (Trade) Dose Ordered Sig/Briana Route PRN Reason Start Time Stop Time Status Last Admin Dose Admin Acetaminophen (Tylenol) 650 mg Q4H PRN ORAL Fever 11/06/19 11:00 12/06/19 10:59 Albuterol/ Ipratropium (Albuterol/ Ipratropium) 3 ml Q4H PRN HHN Shortness of Breath 11/06/19 11:00 11/11/19 10:59 Chlorhexidine Gluconate (Jenna-Hex 2%) 1 applic DAILY@2000 TOPIC 11/06/19 20:00 02/04/20 19:59 Dextrose (Dextrose 50%) 25 ml Q30MIN PRN IV Hypoglycemia 11/06/19 11:00 02/04/20 10:59 Dextrose (Dextrose 50%) 50 ml Q30MIN PRN IV Hypoglycemia 11/06/19 11:00 02/04/20 10:59 Heparin Sodium (Porcine) (Heparin 5000 units/ml) 5,000 units EVERY 12 HOURS SUBQ 11/06/19 21:00 12/21/19 20:59 UNV Lorazepam (Ativan 2mg/ml 1ml) 2 mg Q4H PRN IV For Anxiety 11/06/19 11:00 11/13/19 10:59 Morphine Sulfate (Morphine Sulfate) 4 mg Q4H PRN IVP For Pain 11/06/19 11:00 11/13/19 10:59 Norepinephrine Bitartrate 4 mg/ Dextrose 250 ml @ 0 mls/hr Q24H IV 11/05/19 23:30 12/05/19 23:29 11/06/19 05:34 Ondansetron HCl (Zofran) 4 mg Q6H PRN IVP Nausea & Vomiting 11/06/19 11:00 12/06/19 10:59 Pantoprazole (Protonix) 40 mg DAILY IV 11/07/19 09:00 12/07/19 08:59 Sodium Chloride 1,000 ml @ 125 mls/hr Q8H IV 11/05/19 23:45 12/05/19 23:44 11/06/19 08:28 Temazepam (Restoril) 15 mg HSPRN PRN ORAL Insomnia 11/06/19 11:00 11/13/19 10:59 Assessment/Plan Assessment/Plan: Abx: Zosyn x 1 11/04 Assessment: SP bradycardic cardiac arrest, VDRF 11/04 Septic Shock- pressors requirements decreasing Pneumonia- r/o COVID19 (resident of [facility] with large outbreak) -11/04 CXR: Overall similar appearing bilateral extensive lung opacities concerning for multifocal pneumonia and/or pulmonary edema in the proper context. Unchanged moderate right and trace left pleural effusions with passive atelectasis. Unchanged retrocardiac atelectasis or consolidation. UTI c/w gram negative bacteremia (high grade) -6/1 u/a wbc 40-60, nit neg, leuk +3; ucx >100k GNR Bcx 4/4 GNR Afebrile No leukocytosis Thrombocytopenia/Lymphopenia B/l forefoot and R hand dry gangrene MANUEL CHF pleural effusion CVA dysphagia BPH HTN Afib COPD LE dry gangrene [place] resident ([facility]) Plan: -Start empiric IV Vancomycin and Meropenem pending cultures -f/u cx -Monitor CBC/CMP, temperature -COVID19 isolation and testing -Bcx x2, sp cx -aspiration precautions -ETT/ICU care Thank you for consulting [facility]. Will continue to follow along with you. Olga Allred M.D. Nov 06, 2019 12:42
--- NOTE | 2019-11-06 12:54 | Consultation ---
Consult Note Consult Note I was asked to evaluate the patient at the request of Dr Cabrera for renal failure. This is the patient's first hospitalization here at [facility]. Emergency room note: Patient is a 74-year-old male brought in by EMS for chest pain. Onset of symptoms 1 hour prior to arrival. Prior history of bilateral lower extremity ulcers and gangrene. Patient was sent in from [facility]. Has been having increased difficulty with breathing. Patient is chronically bedridden. Primary care physician is Dr. Zenon Bradley. No Known Allergies (Unverified , 11/05/19) Patient admitting diagnosis as follow: Chest pain Urinary tract infection Atrial fibrillation with RVR Suspected 2018 novel coronavirus infection Shortly after admission to telemetry patient was coded and was intubated and transferred to ICU with the following diagnosis: Respiratory failure requiring intubation Septic shock HCAP (healthcare-associated pneumonia) Patient seen in ICU. Discussed with NETTE Gonzalez. Laboratory data and medication list reviewed. Patient examined. . Assessment/Plan Renal failure, mainly acute, most likely secondary to septic shock Possible underlying chronic renal failure Acute respiratory failure requiring intubation Healthcare associated pneumonia Atrial fibrillation with fast ventricular rate History of CHF Pleural effusion Suspected coronavirus 19 infection Dementia/Alzheimer's History of CVA History of COPD Dry gangrene of the lower extremities Severe hypoalbuminemia Avoid nephrotoxic's Slow hydration watch for CHF symptoms Pulmonary support Monitor renal parameters Urine studies Per consultants I spent an additional 36 minutes on review of medical records including prior hospital records,consult notes, progress notes, procedures ,imaging labs, hemodynamics, and other clinical documentation. Ivan Tellez MD Nov 06, 2019 12:54
[2019-11-06] MEDS: Morphine Sulfate 4mg/ml Inj (IV USE ONLY) IVP PRN ×2 (13:15→22:30)
[2019-11-06] MEDS: Meropenem 1 GM in NS 55 ML IVPB SCH (13:30)
[2019-11-06] MEDS ORDERED: Vancomycin 1.5gm/NS Premix q24h IVPB SCH (14:00)
--- NOTE | 2019-11-06 15:27 | Consultation ---
History of Present Illness General Date patient seen: Nov 06, 2019 Chief Complaint: Chest Pain Present Illness HPI 74 year old male group home resident with multiple medical comorbidities presented to [facility] for evaluation of chest pain and lower extremity gangrene. after admission became hypotensive and cardiac arrest now in ICU intubated on support. surgery called to evaluate and assist with care. patient seen, chart reviewed, patient examined. no n/v/f/c. labs noted. family at bedside. Allergies: Coded Allergies: No Known Allergies (Unverified , 11/05/19) Medication History Scheduled Bacitracin Zinc* (Bacitracin Zinc*), 1 APPLIC TOPIC THREE TIMES A DAY, (Reported ) Carvedilol (Coreg), 3.125 MG ORAL EVERY 12 HOURS, (Reported) Digoxin* (Digoxin*), 125 MCG ORAL DAILY, (Reported) Famotidine* (Pepcid 20mg tablet*), 20 MG ORAL DAILY, (Reported) Furosemide* (Lasix*), 40 MG ORAL DAILY, (Reported) Ibuprofen* (Motrin*), 200 MG ORAL Q4HR, (Reported) Spironolactone* (Spironolactone*), 100 MG ORAL DAILY, (Reported) Tamsulosin HCl (Flomax), 0.4 MG ORAL DAILY, (Reported) Vitamin B Cmplx/Vit C/Folic AC (Nephro-Aishwarya Tablet), 1 TAB ORAL DAILY, (Reported ) Zinc Sulfate (Zinc Sulfate*), 220 MG ORAL DAILY, (Reported) Scheduled PRN Hydrocodone Bit/Acetaminophen 10-325* (Durham 10-325*), 1 TAB ORAL Q6H PRN for For Pain, (Reported) Hydrocodone Bit/Acetaminophen 5-325* (Durham 5-325 Tablet*), 1 TAB ORAL Q6H PRN for FOR PAIN, (Reported) Ondansetron* (Zofran*), 4 MG ORAL Q6H PRN for Nausea & Vomiting, (Reported) Miscellaneous Medications Apixaban (Eliquis), 2.5 MG PO, (Reported) Arginine/Ascorbate Sod/Aishwarya AC (Arginaid Powder), 1 EACH PO, (Reported) Collagenase Clostridium Hist. (Collagenase), 1 EACH MC, (Reported) Gel Base No.41 (Hydrogel), 3,000 GM MC, (Reported) Glucagon,Human Recombinant (Glucagon Emergency Kit), 1 MG IJ, (Reported) Povidone-Iodine (Betadine), 1 EACH TP, (Reported) Patient History Limited by: medical condition History Provided By: Medical Record, PMD Healthcare decision maker N Resuscitation status Advanced Directive on File Past Medical/Surgical History Past Medical/Surgical History: (1) Cardiac arrest (2) Suspected 2019 novel coronavirus infection (3) Urinary tract infection (4) Atrial fibrillation with RVR (5) HCAP (healthcare-associated pneumonia) (6) Septic shock (7) Respiratory failure requiring intubation (8) Sepsis (9) COPD (chronic obstructive pulmonary disease) (10) Cerebrovascular accident (CVA) (11) Dry gangrene (12) Alzheimer disease Review of Systems ROS Narrative cannot obtain given medial condition Physical Exam General Appearance: moderate distress Lines, tubes and drains: central line HEENT: mucous membranes moist Neck: other Respiratory/Chest: on vent Cardiovascular/Chest: irregularly irregular Abdomen: soft, no organomegaly, no mass, decreased bowel sounds Extremities: slow capillary refill, trace edema, other Skin Exam: cyanotic Neurologic: unresponsiveness Last 24 Hour Vital Signs Date Time Temp Pulse Resp B/P (MAP) Pulse Ox O2 Delivery O2 Flow Rate FiO2 11/06/19 14:00 101 17 105/56 (72) 97 11/06/19 13:30 103 20 105/53 (70) 98 11/06/19 13:00 103 20 116/60 (78) 97 11/06/19 12:30 105 21 109/54 (72) 97 11/06/19 12:00 99.4 11/06/19 12:00 105 11/06/19 12:00 102 22 116/53 (74) 97 11/06/19 12:00 40 11/06/19 12:00 Mechanical Ventilator 11/06/19 11:30 97 22 122/48 (72) 93 11/06/19 11:24 93 18 40 11/06/19 11:00 97 18 108/45 (66) 85 11/06/19 10:30 95 17 128/43 (71) 99 11/06/19 10:00 92 17 112/47 (68) 97 11/06/19 09:30 92 19 109/41 (63) 100 11/06/19 09:00 94 18 108/55 (72) 99 11/06/19 08:30 92 17 119/48 (71) 98 11/06/19 08:00 95 11/06/19 08:00 Mechanical Ventilator 11/06/19 08:00 100 11/06/19 08:00 99.1 88 17 118/44 (68) 100 11/06/19 07:30 88 16 119/47 (71) 98 11/06/19 07:07 83 16 40 11/06/19 07:00 89 16 109/50 (69) 97 11/06/19 06:30 90 18 117/40 (65) 100 11/06/19 06:00 87 16 111/47 (68) 100 11/06/19 06:00 111/47 11/06/19 05:34 119/57 11/06/19 05:30 89 17 119/57 (77) 99 11/06/19 05:00 87 17 127/47 (73) 99 11/06/19 05:00 127/47 11/06/19 04:30 93 18 106/54 (71) 98 11/06/19 04:00 98.6 89 16 103/52 (69) 98 11/06/19 04:00 103/52 11/06/19 04:00 100 11/06/19 04:00 Mechanical Ventilator 11/06/19 04:00 86 11/06/19 03:30 99 21 131/92 (105) 98 11/06/19 03:00 97 24 137/59 (85) 100 11/06/19 03:00 137/59 11/06/19 02:57 99 24 40 11/06/19 02:30 89 16 133/92 (106) 100 11/06/19 02:00 89 18 125/86 (99) 100 11/06/19 02:00 125/86 11/06/19 01:30 97 22 114/56 (75) 73 11/06/19 01:00 100 19 117/73 (88) 100 11/06/19 01:00 117/73 11/06/19 00:45 101 17 169/155 (160) 100 11/06/19 00:45 169/155 11/06/19 00:30 97 17 152/97 (115) 100 11/06/19 00:03 68/45 11/06/19 00:00 100 11/06/19 00:00 98.6 94 20 107/77 (87) 99 11/06/19 00:00 97 11/05/19 22:25 88 16 100 11/05/19 22:25 88 16 98 Mechanical Ventilator 100 11/05/19 21:30 98.3 61 18 98/51 (67) 96 61 11/05/19 21:30 Room Air 11/05/19 21:25 98.4 108 21 118/43 98 Nasal Cannula 2.0 11/05/19 20:46 98.4 11/05/19 19:50 98.4 108 21 118/43 98 Nasal Cannula 2.0 11/05/19 18:45 98.4 11/05/19 17:50 92 18 Nasal Cannula 2.0 11/05/19 17:49 98.4 98 18 135/78 98 Nasal Cannula 2.0 Intake and Output 11/05/19 11/06/19 19:00 07:00 Intake Total 1057.500 ml Output Total 160 ml Balance 897.500 ml Intake Free Water 60 ml IV Total 997.500 ml Output Urine Total 160 ml # Voids 1 Laboratory Tests Test 11/05/19 15:48 11/05/19 16:15 11/05/19 23:30 11/06/19 04:00 Urine Color Yellow Urine Appearance Slightly cloudy Urine pH 5 (4.5-8.0) Urine Specific Morris 1.015 (1.005-1.035) Urine Protein 3+ (NEGATIVE) H Urine Glucose (UA) Negative (NEGATIVE) Urine Ketones Negative (NEGATIVE) Urine Blood 4+ (NEGATIVE) H Urine Nitrite Negative (NEGATIVE) Urine Bilirubin 1+ (NEGATIVE) H Urine Ictotest Negativ e (NEGATIVE) Urine Urobilinogen 8 MG/DL (0.0-1.0) H Urine Leukocyte Esterase 3+ (NEGATIVE) H Urine RBC 10-15 /HPF (0 - 0) H Urine WBC 40-60 /HPF (0 - 0) H Urine Squamous Epithelial Cells Occasional /LPF Urine Amorphous Sediment Many /LPF (NONE) H Urine Bacteria Many /HPF (NONE) H White Blood Count 5.7 K/UL (4.8-10.8) 5.2 K/UL (4.8-10.8) Red Blood Count 3.40 M/UL (4.70-6.10) L 3.20 M/UL (4.70-6.10) L Hemoglobin 9.8 G/DL (14.2-18.0) L 9.2 G/DL (14.2-18.0) L Hematocrit 31.7 % (42.0-52.0) L 27.6 % (42.0-52.0) L Mean Corpuscular Volume 93 FL (80-99) 86 FL (80-99) Mean Corpuscular Hemoglobin 28.7 PG (27.0-31.0) 28.7 PG (27.0-31.0) Mean Corpuscular Hemoglobin Concent 30.7 G/DL (32.0-36.0) L 33.2 G/DL (32.0-36.0) Red Cell Distribution Width 16.0 % (11.6-14.8) H 13.8 % (11.6-14.8) Platelet Count 123 K/UL (150-450) L 88 K/UL (150-450) L Mean Platelet Volume 8.4 FL (6.5-10.1) 6.0 FL (6.5-10.1) L Neutrophils (%) (Auto) % (45.0-75.0) % (45.0-75.0) Lymphocytes (%) (Auto) % (20.0-45.0) % (20.0-45.0) Monocytes (%) (Auto) % (1.0-10.0) % (1.0-10.0) Eosinophils (%) (Auto) % (0.0-3.0) % (0.0-3.0) Basophils (%) (Auto) % (0.0-2.0) % (0.0-2.0) Differential Total Cells Counted 100 100 Neutrophils % (Manual) 90 % (45-75) H 91 % (45-75) H Lymphocytes % (Manual) 4 % (20-45) L 5 % (20-45) L Monocytes % (Manual) 2 % (1-10) 2 % (1-10) Eosinophils % (Manual) 0 % (0-3) 1 % (0-3) Basophils % (Manual) 0 % (0-2) 1 % (0-2) Band Neutrophils 4 % (0-8) 0 % (0-8) Platelet Estimate Decreased L Decreased L Platelet Morphology Normal Normal Hypochromasia 1+ 2+ Anisocytosis 1+ 1+ Prothrombin Time 17.5 SEC (9.30-11.50) H Prothromb Time International Ratio 1.6 (0.9-1.1) H Activated Partial Thromboplast Time 48 SEC (23-33) H D-Dimer 7.10 mg/L FEU (0.00-0.49) H Sodium Level 132 MMOL/L (136-145) L 132 MMOL/L (136-145) L Potassium Level 3.8 MMOL/L (3.5-5.1) 3.4 MMOL/L (3.5-5.1) L Chloride Level 95 MMOL/L (98-107) L 95 MMOL/L (98-107) L Carbon Dioxide Level 33 MMOL/L (21-32) H 32 MMOL/L (21-32) Anion Gap 4 mmol/L (5-15) L 5 mmol/L (5-15) Blood Urea Nitrogen 40 mg/dL (7-18) H 42 mg/dL (7-18) H Creatinine 2.0 MG/DL (0.55-1.30) H 2.3 MG/DL (0.55-1.30) H Estimat Glomerular Filtration Rate 39.5 mL/min (>60) 33.7 mL/min (>60) Glucose Level 120 MG/DL (74-106) H 97 MG/DL (74-106) Lactic Acid Level 1.30 mmol/L (0.4-2.0) Calcium Level 7.8 MG/DL (8.5-10.1) L 7.4 MG/DL (8.5-10.1) L Total Bilirubin 2.1 MG/DL (0.2-1.0) H 2.3 MG/DL (0.2-1.0) H Direct Bilirubin 1.8 MG/DL (0.0-0.3) H 2.0 MG/DL (0.0-0.3) H Aspartate Amino Transf (AST/SGOT) 29 U/L (15-37) 27 U/L (15-37) Alanine Aminotransferase (ALT/SGPT) 23 U/L (12-78) 25 U/L (12-78) Alkaline Phosphatase 136 U/L (46-116) H 123 U/L (46-116) H Troponin I 0.066 ng/mL (0.000-0.056) C-Reactive Protein, Quantitative 18.8 mg/dL (0.00-0.90) H Total Protein 5.6 G/DL (6.4-8.2) L 5.2 G/DL (6.4-8.2) L Albumin 1.3 G/DL (3.4-5.0) L 1.3 G/DL (3.4-5.0) L Globulin 4.3 g/dL 3.9 g/dL Albumin/Globulin Ratio 0.3 (1.0-2.7) L 0.3 (1.0-2.7) L Lipase 76 U/L (73-393) Digoxin Level 1.4 NG/ML (0.5-2.0) Arterial Blood pH 7.457 (7.350-7.450) Arterial Blood Partial Pressure CO2 44.4 mmHg (35.0-45.0) Arterial Blood Partial Pressure O2 199.1 mmHg (75.0-100.0) H Arterial Blood HCO3 30.7 mmol/L (22.0-26.0) H Arterial Blood Oxygen Saturation 98.6 % (95-100) Arterial Blood Base Excess 6.1 (-2-2) H Manny Test Positive Erythrocyte Sedimentation Rate 45 MM/HR (0-20) H Hemoglobin A1c 7.4 % (4.3-6.0) H Pro-B-Type Natriuretic Peptide > 10632 pg/mL (0-125) H Test 11/06/19 11:13 11/06/19 11:27 Troponin I 0.098 ng/mL (0.000-0.056) Arterial Blood pH 7.524 (7.350-7.450) Arterial Blood Partial Pressure CO2 34.6 mmHg (35.0-45.0) L Arterial Blood Partial Pressure O2 65.6 mmHg (75.0-100.0) L Arterial Blood HCO3 27.9 mmol/L (22.0-26.0) H Arterial Blood Oxygen Saturation 93.5 % (95-100) L Arterial Blood Base Excess 4.9 (-2-2) H Manny Test Positive Microbiology Date/Time Source Procedure Growth Status 11/05/19 16:20 Blood Blood Culture - Preliminary Resulted 11/05/19 16:10 Blood Blood Culture - Preliminary Resulted 11/05/19 15:48 Urine,Clean Catch Urine Culture - Preliminary Gram Negative Bacillus 1 Resulted Height (Feet): 5 Height (Inches): 11.00 Weight (Pounds): 183 Medications Current Medications Medications (Trade) Dose Ordered Sig/Briana Route PRN Reason Start Time Stop Time Status Last Admin Dose Admin Acetaminophen (Tylenol) 650 mg Q4H PRN ORAL Fever 11/06/19 11:00 12/06/19 10:59 Albuterol/ Ipratropium (Albuterol/ Ipratropium) 3 ml Q4H PRN HHN Shortness of Breath 11/06/19 11:00 11/11/19 10:59 Chlorhexidine Gluconate (Jenna-Hex 2%) 1 applic DAILY@2000 TOPIC 11/06/19 20:00 02/04/20 19:59 Dextrose (Dextrose 50%) 25 ml Q30MIN PRN IV Hypoglycemia 11/06/19 11:00 02/04/20 10:59 Dextrose (Dextrose 50%) 50 ml Q30MIN PRN IV Hypoglycemia 11/06/19 11:00 02/04/20 10:59 Heparin Sodium (Porcine) (Heparin 5000 units/ml) 5,000 units EVERY 12 HOURS SUBQ 11/06/19 21:00 12/21/19 20:59 Lorazepam (Ativan 2mg/ml 1ml) 2 mg Q4H PRN IV For Anxiety 11/06/19 11:00 11/13/19 10:59 Meropenem 1 gm/ Sodium Chloride 55 ml @ 110 mls/hr Q12H IVPB 11/06/19 14:00 11/11/19 13:59 11/06/19 13:30 Morphine Sulfate (Morphine Sulfate) 4 mg Q4H PRN IVP For Pain 11/06/19 11:00 11/13/19 10:59 11/06/19 13:15 Norepinephrine Bitartrate 4 mg/ Dextrose 250 ml @ 0 mls/hr Q24H IV 11/05/19 23:30 12/05/19 23:29 11/06/19 05:34 Ondansetron HCl (Zofran) 4 mg Q6H PRN IVP Nausea & Vomiting 11/06/19 11:00 12/06/19 10:59 Pantoprazole (Protonix) 40 mg DAILY IV 11/07/19 09:00 12/07/19 08:59 Sodium Chloride 1,000 ml @ 125 mls/hr Q8H IV 11/05/19 23:45 12/05/19 23:44 11/06/19 08:28 Temazepam (Restoril) 15 mg HSPRN PRN ORAL Insomnia 11/06/19 11:00 11/13/19 10:59 Vancomycin HCl (Vanco pharmacy to dose) 1 ea DAILY PRN MISC Per rx protocol 11/06/19 12:45 12/06/19 12:44 Vancomycin/Sodium Chloride 275 ml @ 137.5 mls/ hr ONCE IVPB 11/06/19 14:00 11/06/19 16:00 11/06/19 13:30 Assessment/Plan Problem List: (1) Cardiac arrest ICD Codes: I46.9 - Cardiac arrest, cause unspecified SNOMED: 533359429 (2) Suspected 2019 novel coronavirus infection Assessment & Plan: Bilateral diffuse alveolar densities likely pulmonary edema. Superimposed infiltrates cannot be excluded. Bilateral effusions right greater than left. ICD Codes: Z20.828 - Contact with and (suspected) exposure to other viral communicable diseases SNOMED: 934693548 (3) Urinary tract infection ICD Codes: N39.0 - Urinary tract infection, site not specified SNOMED: 70980036 (4) Atrial fibrillation with RVR ICD Codes: I48.91 - Unspecified atrial fibrillation SNOMED: 242618085069480 (5) HCAP (healthcare-associated pneumonia) ICD Codes: J18.9 - Pneumonia, unspecified organism SNOMED: 856607052, 457583620 (6) Septic shock Assessment & Plan: 74M cardiac arrest currently intubated in ICU cxr noted labs reviewed LE necrosis dry gangrene no active superimposed infection noted no drainage right groin line okay trend labs will follow with recs thank you DAILY ESTIMATED NEEDS: Needs based on Critical care, wounds, 79.4kg 22-30 kcals/kg 1053-8932 total kcals 1.25-2 g protein/kg 99-159 g total protein 25-30 mL/kg 7891-4878 total fluid mLs NUTRITION DIAGNOSIS: Swallowing difficulty r/t resp status as evidenced by s/p code blue, now intubated, OGT in place, NPO. (CURRENT DIET: NPO) ENTERAL NUTRITION RECOMMENDATIONS: VITAL 1.2 goal of 65ml/hr x24 hrs to provide 1560ml, 1872 kcal, 117g pro, 1265ml free H2O - As medically able w/ stability rec to initiate OGT feeds of Vital 1.2. - Start @25ml/hr for 6 hrs, advance as tolerated 10ml/hr q4-6 hrs to goal. - Flush per MD, HOB over 30 degrees ADDITIONAL RECOMMENDATIONS: 1) F/up w/ WC eval; pt currently NPO, unable to provide modulars 2) Maintain calibrated bed scale wts 3) replete lytes as needed (K 3.4), check daily 4) NISS w/ accuchecks for glycemic control. Consider D5 while NPO ICD Codes: A41.9 - Sepsis, unspecified organism; R65.21 - Severe sepsis with septic shock SNOMED: 91384093, 488148760 (7) Respiratory failure requiring intubation ICD Codes: J96.90 - Respiratory failure, unspecified, unspecified whether with hypoxia or hypercapnia; R65.21 - Severe sepsis with septic shock SNOMED: 959815346, 461157613 (8) Sepsis ICD Codes: A41.9 - Sepsis, unspecified organism SNOMED: 11245545 (9) COPD (chronic obstructive pulmonary disease) ICD Codes: J44.9 - Chronic obstructive pulmonary disease, unspecified SNOMED: 68631854 (10) Cerebrovascular accident (CVA) ICD Codes: I63.9 - Cerebral infarction, unspecified SNOMED: 610327581 (11) Dry gangrene ICD Codes: I96 - Gangrene, not elsewhere classified SNOMED: 07499828, 269816318 (12) Alzheimer disease ICD Codes: G30.9 - Alzheimer's disease, unspecified; F02.80 - Dementia in other diseases classified elsewhere without behavioral disturbance SNOMED: 60038738 Bradley Vazquez Nov 06, 2019 15:27
[2019-11-06] MEDS: Pantoprazole Inj IV SCH (20:18)
[2019-11-06] MEDS: Dyna-Hex 2% Top Sol 2oz TOPIC SCH (20:18)
[2019-11-06] MEDS: Heparin 5000 units/ml inj SUBQ SCH (20:56)
[2019-11-07] VITALS (53 sets, daily range): BP systolic 86–147; BP diastolic 42–132
[2019-11-07] MEDS: Meropenem 1 GM in NS 55 ML IVPB SCH ×2 (01:30→13:07)
[2019-11-07 05:15] LABS: HEMATOCRIT 23.6 % (42.0-52.0); HEMOGLOBIN 7.9 G/DL (14.2-18.0); MEAN CORPUSCULAR VOLUME 85 FL (80-99); PLATELET COUNT 65 K/UL (150-450); RED BLOOD COUNT 2.77 M/UL (4.70-6.10); RED CELL DISTRIBUTION WIDTH 13.8 % (11.6-14.8); WHITE BLOOD COUNT 5.1 K/UL (4.8-10.8)
[2019-11-07 05:52] LABS: % IRON SATURATION 29 % (15-50); IRON 18 ug/dL (50-175); TOTAL IRON BINDING CAPACITY 62 ug/dL (250-450)
[2019-11-07 05:56] LABS: ALANINE AMINOTRANSFERASE 17 U/L (12-78); ALBUMIN 1.1 G/DL (3.4-5.0); ALBUMIN/GLOBULIN RATIO 0.3 (1.0-2.7); ALKALINE PHOSPHATASE 113 U/L (46-116); ANION GAP 8 mmol/L (5-15); ASPARTATE AMINO TRANSFERASE 33 U/L (15-37); BILIRUBIN,TOTAL 2.6 MG/DL (0.2-1.0); BLOOD UREA NITROGEN 48 mg/dL (7-18); CALCIUM 7.1 MG/DL (8.5-10.1); CARBON DIOXIDE 29 MMOL/L (21-32); CHLORIDE 99 MMOL/L (98-107); CREATININE 2.7 MG/DL (0.55-1.30); FERRITIN 1308 NG/ML (8-388); PHOSPHORUS 2.7 MG/DL (2.5-4.9); POTASSIUM 3.4 MMOL/L (3.5-5.1); SODIUM 135 MMOL/L (136-145)
[2019-11-07 06:35] LABS: CREATINE KINASE 28 U/L (26-308); GAMMA GLUTAMYL TRANSPEPTIDASE 81 U/L (5-85)
[2019-11-07 06:37] LABS: BILIRUBIN,DIRECT 2.2 MG/DL (0.0-0.3)
[2019-11-07] MEDS: Pantoprazole Inj IV SCH ×2 (08:46→20:22)
[2019-11-07] MEDS: Heparin 5000 units/ml inj SUBQ SCH ×2 (08:46→21:00)
[2019-11-07] MEDS ORDERED: Vancomycin 1.5gm/NS Premix IVPB ONE (09:00)
[2019-11-07] MEDS ORDERED: Pantoprazole Inj IV SCH (09:00)
--- NOTE | 2019-11-07 09:44 | Diagnostic Imaging Report ---
Indication: Dyspnea Technique: One view of the chest Comparison: 11/05/2019 Findings: Bilateral interstitial and airspace infiltrates versus edema remain unchanged. There may be increased pleural fluid on the right.. Stable satisfactory positions of endotracheal and orogastric tubes. Impression: Equivocal increased right pleural effusion. 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
[2019-11-07] MEDS: Morphine Sulfate 4mg/ml Inj (IV USE ONLY) IVP PRN (09:58)
--- NOTE | 2019-11-07 10:22 | Pulmonolgy Critical Care Note ---
Critical Care - Asmt/Plan Problems: (1) Respiratory failure requiring intubation (2) Septic shock (3) Cardiac arrest (4) Anemia (5) Atrial fibrillation with RVR (6) Suspected 2019 novel coronavirus infection (7) Dry gangrene (8) Alzheimer disease (9) COPD (chronic obstructive pulmonary disease) (10) Cerebrovascular accident (CVA) Respiratory: monitor respiratory rate, adjust FIO2, CXR Cardiac: continue pressors, continue to monitor HR/BP Renal: F/U I&O, keep IV fluid, check electrolytes Infectious Disease: check cultures, continue antibiotics Gastrointestinal: start feedings Endocrine: monitor blood sugar Hematologic: monitor H/H, transfuse if hgb<8.5 Neurologic: PRN Ativan, keep patient comfortable Affect: PRN ativan Prophylaxis: Protonix, Heparin Disposition: keep in ICU Notes Reviewed: events solutions consultant, cardio, renal Discussed with: nurses, consultants, business case analystmanager land - Objective Last 24 Hour Vital Signs Date Time Temp Pulse Resp B/P (MAP) Pulse Ox O2 Delivery O2 Flow Rate FiO2 11/07/19 09:30 87 17 116/42 (66) 100 11/07/19 09:00 89 17 125/52 (76) 100 11/07/19 09:00 125/52 11/07/19 08:30 98.4 90 17 123/52 (75) 100 11/07/19 08:30 123/52 11/07/19 08:00 40 11/07/19 08:00 Mechanical Ventilator 11/07/19 08:00 119/51 11/07/19 08:00 94 15 119/51 (73) 100 11/07/19 07:40 94 20 40 11/07/19 07:30 94 19 130/44 (72) 11/07/19 07:00 93 20 146/132 (137) 100 11/07/19 06:30 97 23 109/71 (84) 100 11/07/19 06:00 99.6 103 21 117/64 (81) 100 11/07/19 06:00 117/64 11/07/19 05:47 135/46 11/07/19 05:30 102 24 135/46 (75) 96 11/07/19 05:00 103 24 125/99 (108) 100 11/07/19 05:00 125/99 6/3/20 04:30 98 21 128/53 (78) 98 11/07/19 04:00 101.4 98 20 114/61 (78) 98 11/07/19 04:00 40 11/07/19 04:00 101.4 11/07/19 04:00 114/61 11/07/19 04:00 Mechanical Ventilator 11/07/19 03:30 95 18 138/48 (78) 99 11/07/19 03:26 94 11/07/19 03:17 102 21 40 11/07/19 03:00 92 18 120/51 (74) 98 11/07/19 03:00 120/51 11/07/19 02:30 92 17 128/45 (72) 98 11/07/19 02:00 147/50 11/07/19 02:00 96 17 147/50 (82) 100 11/07/19 01:30 91 17 140/45 (76) 98 11/07/19 01:00 89 16 138/51 (80) 98 11/07/19 01:00 138/51 11/07/19 00:30 99.6 95 18 143/55 (84) 99 11/07/19 00:00 94 11/07/19 00:00 Mechanical Ventilator 11/07/19 00:00 94 18 140/59 (86) 99 11/07/19 00:00 140/59 11/07/19 00:00 40 11/06/19 23:53 94 17 40 11/06/19 23:30 88 17 150/54 (86) 100 11/06/19 23:00 88 17 139/50 (79) 98 11/06/19 23:00 139/50 11/06/19 22:30 91 18 152/55 (87) 98 11/06/19 22:16 132/52 11/06/19 22:00 87 16 132/52 (78) 100 11/06/19 21:30 89 17 134/59 (84) 99 11/06/19 21:00 127/52 11/06/19 21:00 91 18 127/52 (77) 100 11/06/19 20:30 112/55 11/06/19 20:30 99.9 93 18 112/55 (74) 100 11/06/19 20:00 Mechanical Ventilator 11/06/19 20:00 137/48 11/06/19 20:00 40 11/06/19 20:00 88 15 137/48 (77) 100 11/06/19 19:45 87 21 40 11/06/19 19:30 85 16 154/62 (92) 99 11/06/19 19:26 90 11/06/19 19:00 86 16 110/60 (77) 100 11/06/19 19:00 124/89 11/06/19 18:45 86 22 82/44 (57) 98 11/06/19 18:45 87/44 11/06/19 18:30 83/39 11/06/19 18:30 88 20 82/37 (52) 97 11/06/19 18:15 76/42 11/06/19 18:15 92 20 88/45 (59) 96 11/06/19 18:00 96 20 88/45 (59) 98 11/06/19 18:00 88/45 11/06/19 17:54 100.9 11/06/19 17:30 99 18 116/60 (78) 100 11/06/19 17:00 100/44 11/06/19 17:00 99 17 100/44 (62) 100 11/06/19 16:29 99 19 99/53 (68) 99 11/06/19 16:00 98 11/06/19 16:00 Mechanical Ventilator 11/06/19 16:00 40 11/06/19 16:00 125/60 11/06/19 16:00 100 19 125/50 (75) 99 11/06/19 16:00 100.0 11/06/19 15:30 99 18 113/52 (72) 99 11/06/19 15:30 99 21 113/62 (79) 98 11/06/19 15:07 91 20 40 11/06/19 15:00 97 18 114/51 (72) 99 11/06/19 15:00 114/51 11/06/19 15:00 96 17 98/52 (67) 99 11/06/19 14:30 98 18 106/63 (77) 99 11/06/19 14:30 99 19 91/59 (70) 99 11/06/19 14:00 101 17 105/56 (72) 97 11/06/19 14:00 108/53 11/06/19 13:30 103 20 105/53 (70) 98 11/06/19 13:00 116/60 11/06/19 13:00 103 20 116/60 (78) 97 11/06/19 12:30 105 21 109/54 (72) 97 11/06/19 12:00 99.4 11/06/19 12:00 105 11/06/19 12:00 102 22 116/53 (74) 97 11/06/19 12:00 40 11/06/19 12:00 116/53 11/06/19 12:00 Mechanical Ventilator 11/06/19 11:30 97 22 122/48 (72) 93 11/06/19 11:24 93 18 40 11/06/19 11:00 124/48 11/06/19 11:00 97 18 108/45 (66) 85 11/06/19 10:30 95 17 128/43 (71) 99 Status: sedated Condition: critical HEENT: atraumatic, normocephalic Neck: full ROM Lungs: rales, rhonchi Heart: HR/BP stable Abdomen: soft Extremities: no C/C/E Micro: Microbiology Date/Time Source Procedure Growth Status 11/05/19 16:20 Blood Blood Culture - Preliminary Gram Negative Bacillus 1 Resulted 11/05/19 16:10 Blood Blood Culture - Preliminary Gram Negative Bacillus 1 Resulted 11/05/19 22:00 Nasopharynx Coronavirus COVID-19 PCR ([facility]) - Final Complete 11/05/19 15:48 Urine,Clean Catch Urine Culture - Final Escherichia Coli Complete Accucheck: 120 Critical Care - Subjective ROS Limited/Unobtainable: Yes Condition: critical EKG Rhythm: Sinus Rhythm FI02: 40 Vent Support Breath Rate: 16 Vent Support Mode: AC Vent Tidal Volume: 500 Sputum Amount: Small PEEP: 0.0 PIP: 16 I&O: Intake and Output 11/06/19 11/07/19 19:00 07:00 Intake Total 1918.745 ml 2128.75 ml Output Total 155 ml 205 ml Balance 1763.745 ml 1923.75 ml IV Total 1918.745 ml 2078.75 ml Other 50 ml Output Urine Total 155 ml 205 ml CXR: extensive bilateral infiltrate ET-Tube: 7.5 ET Position: 26 Labs: Laboratory Tests Test 11/06/19 11:13 11/06/19 11:27 11/06/19 17:58 11/07/19 04:00 Troponin I 0.098 ng/mL (0.000-0.056) 0.165 ng/mL (0.000-0.056) Arterial Blood pH 7.524 (7.350-7.450) Arterial Blood Partial Pressure CO2 34.6 mmHg (35.0-45.0) L Arterial Blood Partial Pressure O2 65.6 mmHg (75.0-100.0) L Arterial Blood HCO3 27.9 mmol/L (22.0-26.0) H Arterial Blood Oxygen Saturation 93.5 % (95-100) L Arterial Blood Base Excess 4.9 (-2-2) H Manny Test Positive Urine Random Sodium < 20 mmol/L (20-110) L Test 11/07/19 04:40 11/07/19 05:50 White Blood Count 5.1 K/UL (4.8-10.8) Red Blood Count 2.77 M/UL (4.70-6.10) L Hemoglobin 7.9 G/DL (14.2-18.0) L Hematocrit 23.6 % (42.0-52.0) L Mean Corpuscular Volume 85 FL (80-99) Mean Corpuscular Hemoglobin 28.6 PG (27.0-31.0) Mean Corpuscular Hemoglobin Concent 33.6 G/DL (32.0-36.0) Red Cell Distribution Width 13.8 % (11.6-14.8) Platelet Count 65 K/UL (150-450) L Mean Platelet Volume 7.2 FL (6.5-10.1) Neutrophils (%) (Auto) % (45.0-75.0) Lymphocytes (%) (Auto) % (20.0-45.0) Monocytes (%) (Auto) % (1.0-10.0) Eosinophils (%) (Auto) % (0.0-3.0) Basophils (%) (Auto) % (0.0-2.0) Differential Total Cells Counted 100 Neutrophils % (Manual) 74 % (45-75) Lymphocytes % (Manual) 6 % (20-45) L Monocytes % (Manual) 3 % (1-10) Eosinophils % (Manual) 1 % (0-3) Basophils % (Manual) 0 % (0-2) Band Neutrophils 16 % (0-8) H Platelet Estimate Decreased L Platelet Morphology Normal Hypochromasia 1+ Anisocytosis 1+ Schistocytes Rare Sodium Level 135 MMOL/L (136-145) L Potassium Level 3.4 MMOL/L (3.5-5.1) L Chloride Level 99 MMOL/L (98-107) Carbon Dioxide Level 29 MMOL/L (21-32) Anion Gap 8 mmol/L (5-15) Blood Urea Nitrogen 48 mg/dL (7-18) H Creatinine 2.7 MG/DL (0.55-1.30) H Estimat Glomerular Filtration Rate 28.0 mL/min (>60) Glucose Level 75 MG/DL (74-106) Hemoglobin A1c 7.2 % (4.3-6.0) H Uric Acid 5.5 MG/DL (2.6-7.2) Calcium Level 7.1 MG/DL (8.5-10.1) L Phosphorus Level 2.7 MG/DL (2.5-4.9) Magnesium Level 1.3 MG/DL (1.8-2.4) L Iron Level 18 ug/dL (50-175) L Total Iron Binding Capacity 62 ug/dL (250-450) L Percent Iron Saturation 29 % (15-50) Unsaturated Iron Binding 44 ug/dL (112-346) L Ferritin 1308 NG/ML (8-388) H Total Bilirubin 2.6 MG/DL (0.2-1.0) H Direct Bilirubin 2.2 MG/DL (0.0-0.3) H Gamma Glutamyl Transpeptidase 81 U/L (5-85) Aspartate Amino Transf (AST/SGOT) 33 U/L (15-37) Alanine Aminotransferase (ALT/SGPT) 17 U/L (12-78) Alkaline Phosphatase 113 U/L (46-116) Total Creatine Kinase 28 U/L (26-308) C-Reactive Protein, Quantitative 19.0 mg/dL (0.00-0.90) H Pro-B-Type Natriuretic Peptide > 40517 pg/mL (0-125) H Total Protein 4.6 G/DL (6.4-8.2) L Albumin 1.1 G/DL (3.4-5.0) L Globulin 3.5 g/dL Albumin/Globulin Ratio 0.3 (1.0-2.7) L Vitamin B12 Level > 2000 PG/ML (193-986) H Folate 9.6 NG/ML (8.6-58.9) Cortisol AM Sample Pending Random Vancomycin Level 12.9 ug/mL Urine Eosinophils None seen (NONE SEEN) Issa Cabrera MD Nov 07, 2019 10:22
--- NOTE | 2019-11-07 11:14 | Consultation ---
History of Present Illness General Chief Complaint: Chest Pain Present Illness Allergies: Coded Allergies: No Known Allergies (Unverified , 11/05/19) Medication History Scheduled Bacitracin Zinc* (Bacitracin Zinc*), 1 APPLIC TOPIC THREE TIMES A DAY, (Reported ) Carvedilol (Coreg), 3.125 MG ORAL EVERY 12 HOURS, (Reported) Digoxin* (Digoxin*), 125 MCG ORAL DAILY, (Reported) Famotidine* (Pepcid 20mg tablet*), 20 MG ORAL DAILY, (Reported) Furosemide* (Lasix*), 40 MG ORAL DAILY, (Reported) Ibuprofen* (Motrin*), 200 MG ORAL Q4HR, (Reported) Spironolactone* (Spironolactone*), 100 MG ORAL DAILY, (Reported) Tamsulosin HCl (Flomax), 0.4 MG ORAL DAILY, (Reported) Vitamin B Cmplx/Vit C/Folic AC (Nephro-Aishwarya Tablet), 1 TAB ORAL DAILY, (Reported ) Zinc Sulfate (Zinc Sulfate*), 220 MG ORAL DAILY, (Reported) Scheduled PRN Hydrocodone Bit/Acetaminophen 10-325* ([place] 10-325*), 1 TAB ORAL Q6H PRN for For Pain, (Reported) Hydrocodone Bit/Acetaminophen 5-325* ([place] 5-325 Tablet*), 1 TAB ORAL Q6H PRN for FOR PAIN, (Reported) Ondansetron* (Zofran*), 4 MG ORAL Q6H PRN for Nausea & Vomiting, (Reported) Miscellaneous Medications Apixaban (Eliquis), 2.5 MG PO, (Reported) Arginine/Ascorbate Sod/Aishwarya AC (Arginaid Powder), 1 EACH PO, (Reported) Collagenase Clostridium Hist. (Collagenase), 1 EACH MC, (Reported) Gel Base No.41 (Hydrogel), 3,000 GM MC, (Reported) Glucagon,Human Recombinant (Glucagon Emergency Kit), 1 MG IJ, (Reported) Povidone-Iodine (Betadine), 1 EACH TP, (Reported) Patient History Healthcare decision maker N Resuscitation status Advanced Directive on File Physical Exam Last 24 Hour Vital Signs Date Time Temp Pulse Resp B/P (MAP) Pulse Ox O2 Delivery O2 Flow Rate FiO2 11/07/19 10:15 85 17 100/47 (64) 100 11/07/19 10:00 86 18 119/55 (76) 100 11/07/19 09:45 88 18 120/50 (73) 11/07/19 09:30 87 17 116/42 (66) 100 11/07/19 09:00 89 17 125/52 (76) 100 11/07/19 09:00 125/52 11/07/19 08:30 98.4 90 17 123/52 (75) 100 11/07/19 08:30 123/52 11/07/19 08:00 40 11/07/19 08:00 Mechanical Ventilator 11/07/19 08:00 119/51 11/07/19 08:00 94 15 119/51 (73) 100 11/07/19 08:00 88 11/07/19 07:40 94 20 40 11/07/19 07:30 94 19 130/44 (72) 11/07/19 07:00 93 20 146/132 (137) 100 11/07/19 06:30 97 23 109/71 (84) 100 11/07/19 06:00 99.6 103 21 117/64 (81) 100 11/07/19 06:00 117/64 11/07/19 05:47 135/46 11/07/19 05:30 102 24 135/46 (75) 96 11/07/19 05:00 103 24 125/99 (108) 100 11/07/19 05:00 125/99 11/07/19 04:30 98 21 128/53 (78) 98 11/07/19 04:00 101.4 98 20 114/61 (78) 98 11/07/19 04:00 40 11/07/19 04:00 101.4 11/07/19 04:00 114/61 11/07/19 04:00 Mechanical Ventilator 11/07/19 03:30 95 18 138/48 (78) 99 11/07/19 03:26 94 11/07/19 03:17 102 21 40 11/07/19 03:00 92 18 120/51 (74) 98 11/07/19 03:00 120/51 11/07/19 02:30 92 17 128/45 (72) 98 11/07/19 02:00 147/50 11/07/19 02:00 96 17 147/50 (82) 100 11/07/19 01:30 91 17 140/45 (76) 98 11/07/19 01:00 89 16 138/51 (80) 98 11/07/19 01:00 138/51 11/07/19 00:30 99.6 95 18 143/55 (84) 99 11/07/19 00:00 94 11/07/19 00:00 Mechanical Ventilator 11/07/19 00:00 94 18 140/59 (86) 99 11/07/19 00:00 140/59 11/07/19 00:00 40 11/06/19 23:53 94 17 40 11/06/19 23:30 88 17 150/54 (86) 100 11/06/19 23:00 88 17 139/50 (79) 98 11/06/19 23:00 139/50 11/06/19 22:30 91 18 152/55 (87) 98 11/06/19 22:16 132/52 11/06/19 22:00 87 16 132/52 (78) 100 11/06/19 21:30 89 17 134/59 (84) 99 11/06/19 21:00 127/52 11/06/19 21:00 91 18 127/52 (77) 100 11/06/19 20:30 112/55 11/06/19 20:30 99.9 93 18 112/55 (74) 100 11/06/19 20:00 Mechanical Ventilator 11/06/19 20:00 137/48 11/06/19 20:00 40 11/06/19 20:00 88 15 137/48 (77) 100 11/06/19 19:45 87 21 40 11/06/19 19:30 85 16 154/62 (92) 99 11/06/19 19:26 90 11/06/19 19:00 86 16 110/60 (77) 100 11/06/19 19:00 124/89 11/06/19 18:45 86 22 82/44 (57) 98 11/06/19 18:45 87/44 11/06/19 18:30 83/39 11/06/19 18:30 88 20 82/37 (52) 97 11/06/19 18:15 76/42 11/06/19 18:15 92 20 88/45 (59) 96 6/2/20 18:00 96 20 88/45 (59) 98 11/06/19 18:00 88/45 11/06/19 17:54 100.9 11/06/19 17:30 99 18 116/60 (78) 100 11/06/19 17:00 100/44 11/06/19 17:00 99 17 100/44 (62) 100 11/06/19 16:29 99 19 99/53 (68) 99 11/06/19 16:00 98 11/06/19 16:00 Mechanical Ventilator 11/06/19 16:00 40 11/06/19 16:00 125/60 11/06/19 16:00 100 19 125/50 (75) 99 11/06/19 16:00 100.0 11/06/19 15:30 99 18 113/52 (72) 99 11/06/19 15:30 99 21 113/62 (79) 98 11/06/19 15:07 91 20 40 11/06/19 15:00 97 18 114/51 (72) 99 11/06/19 15:00 114/51 11/06/19 15:00 96 17 98/52 (67) 99 11/06/19 14:30 98 18 106/63 (77) 99 11/06/19 14:30 99 19 91/59 (70) 99 11/06/19 14:00 101 17 105/56 (72) 97 11/06/19 14:00 108/53 11/06/19 13:30 103 20 105/53 (70) 98 11/06/19 13:00 116/60 11/06/19 13:00 103 20 116/60 (78) 97 11/06/19 12:30 105 21 109/54 (72) 97 11/06/19 12:00 99.4 11/06/19 12:00 105 11/06/19 12:00 102 22 116/53 (74) 97 11/06/19 12:00 40 11/06/19 12:00 116/53 11/06/19 12:00 Mechanical Ventilator 11/06/19 11:30 97 22 122/48 (72) 93 11/06/19 11:24 93 18 40 Intake and Output 11/06/19 11/07/19 19:00 07:00 Intake Total 1918.745 ml 2128.75 ml Output Total 155 ml 205 ml Balance 1763.745 ml 1923.75 ml IV Total 1918.745 ml 2078.75 ml Other 50 ml Output Urine Total 155 ml 205 ml Laboratory Tests Test 11/06/19 11:13 11/06/19 11:27 11/06/19 17:58 11/07/19 04:00 Troponin I 0.098 ng/mL (0.000-0.056) 0.165 ng/mL (0.000-0.056) Arterial Blood pH 7.524 (7.350-7.450) Arterial Blood Partial Pressure CO2 34.6 mmHg (35.0-45.0) L Arterial Blood Partial Pressure O2 65.6 mmHg (75.0-100.0) L Arterial Blood HCO3 27.9 mmol/L (22.0-26.0) H Arterial Blood Oxygen Saturation 93.5 % (95-100) L Arterial Blood Base Excess 4.9 (-2-2) H Manny Test Positive Urine Random Sodium < 20 mmol/L (20-110) L Test 11/07/19 04:40 11/07/19 05:50 White Blood Count 5.1 K/UL (4.8-10.8) Red Blood Count 2.77 M/UL (4.70-6.10) L Hemoglobin 7.9 G/DL (14.2-18.0) L Hematocrit 23.6 % (42.0-52.0) L Mean Corpuscular Volume 85 FL (80-99) Mean Corpuscular Hemoglobin 28.6 PG (27.0-31.0) Mean Corpuscular Hemoglobin Concent 33.6 G/DL (32.0-36.0) Red Cell Distribution Width 13.8 % (11.6-14.8) Platelet Count 65 K/UL (150-450) L Mean Platelet Volume 7.2 FL (6.5-10.1) Neutrophils (%) (Auto) % (45.0-75.0) Lymphocytes (%) (Auto) % (20.0-45.0) Monocytes (%) (Auto) % (1.0-10.0) Eosinophils (%) (Auto) % (0.0-3.0) Basophils (%) (Auto) % (0.0-2.0) Differential Total Cells Counted 100 Neutrophils % (Manual) 74 % (45-75) Lymphocytes % (Manual) 6 % (20-45) L Monocytes % (Manual) 3 % (1-10) Eosinophils % (Manual) 1 % (0-3) Basophils % (Manual) 0 % (0-2) Band Neutrophils 16 % (0-8) H Platelet Estimate Decreased L Platelet Morphology Normal Hypochromasia 1+ Anisocytosis 1+ Schistocytes Rare Sodium Level 135 MMOL/L (136-145) L Potassium Level 3.4 MMOL/L (3.5-5.1) L Chloride Level 99 MMOL/L (98-107) Carbon Dioxide Level 29 MMOL/L (21-32) Anion Gap 8 mmol/L (5-15) Blood Urea Nitrogen 48 mg/dL (7-18) H Creatinine 2.7 MG/DL (0.55-1.30) H Estimat Glomerular Filtration Rate 28.0 mL/min (>60) Glucose Level 75 MG/DL (74-106) Hemoglobin A1c 7.2 % (4.3-6.0) H Uric Acid 5.5 MG/DL (2.6-7.2) Calcium Level 7.1 MG/DL (8.5-10.1) L Phosphorus Level 2.7 MG/DL (2.5-4.9) Magnesium Level 1.3 MG/DL (1.8-2.4) L Iron Level 18 ug/dL (50-175) L Total Iron Binding Capacity 62 ug/dL (250-450) L Percent Iron Saturation 29 % (15-50) Unsaturated Iron Binding 44 ug/dL (112-346) L Ferritin 1308 NG/ML (8-388) H Total Bilirubin 2.6 MG/DL (0.2-1.0) H Direct Bilirubin 2.2 MG/DL (0.0-0.3) H Gamma Glutamyl Transpeptidase 81 U/L (5-85) Aspartate Amino Transf (AST/SGOT) 33 U/L (15-37) Alanine Aminotransferase (ALT/SGPT) 17 U/L (12-78) Alkaline Phosphatase 113 U/L (46-116) Total Creatine Kinase 28 U/L (26-308) C-Reactive Protein, Quantitative 19.0 mg/dL (0.00-0.90) H Pro-B-Type Natriuretic Peptide > 85070 pg/mL (0-125) H Total Protein 4.6 G/DL (6.4-8.2) L Albumin 1.1 G/DL (3.4-5.0) L Globulin 3.5 g/dL Albumin/Globulin Ratio 0.3 (1.0-2.7) L Vitamin B12 Level > 2000 PG/ML (193-986) H Folate 9.6 NG/ML (8.6-58.9) Cortisol AM Sample Pending Random Vancomycin Level 12.9 ug/mL Urine Eosinophils None seen (NONE SEEN) Height (Feet): 5 Height (Inches): 11.00 Weight (Pounds): 183 Medications Current Medications Medications (Trade) Dose Ordered Sig/Briana Route PRN Reason Start Time Stop Time Status Last Admin Dose Admin Acetaminophen (Tylenol) 650 mg Q4H PRN ORAL Fever 11/06/19 11:00 12/06/19 10:59 11/07/19 03:30 Albumin Human 50 ml @ 50 mls/hr Q8H IV 11/06/19 19:00 11/07/19 11:59 11/07/19 03:19 Albuterol/ Ipratropium (Albuterol/ Ipratropium) 3 ml Q4H PRN HHN Shortness of Breath 11/06/19 11:00 11/11/19 10:59 Chlorhexidine Gluconate (Jenna-Hex 2%) 1 applic DAILY@2000 TOPIC 11/06/19 20:00 02/04/20 19:59 11/06/19 20:18 Dextrose (Dextrose 50%) 25 ml Q30MIN PRN IV Hypoglycemia 11/06/19 11:00 02/04/20 10:59 Dextrose (Dextrose 50%) 50 ml Q30MIN PRN IV Hypoglycemia 11/06/19 11:00 02/04/20 10:59 Heparin Sodium (Porcine) (Heparin 5000 units/ml) 5,000 units EVERY 12 HOURS SUBQ 11/06/19 21:00 12/21/19 20:59 Lorazepam (Ativan 2mg/ml 1ml) 2 mg Q4H PRN IV For Anxiety 11/06/19 11:00 11/13/19 10:59 Magnesium Sulfate 100 ml @ 100 mls/hr Q1H IVPB 11/07/19 08:30 11/07/19 12:29 11/07/19 09:51 Meropenem 1 gm/ Sodium Chloride 55 ml @ 110 mls/hr Q12H IVPB 11/06/19 14:00 11/11/19 13:59 11/07/19 01:30 Morphine Sulfate (Morphine Sulfate) 4 mg Q4H PRN IVP For Pain 11/06/19 11:00 11/13/19 10:59 11/07/19 09:58 Norepinephrine Bitartrate 4 mg/ Dextrose 250 ml @ 0 mls/hr Q24H IV 11/05/19 23:30 12/05/19 23:29 11/07/19 05:47 Ondansetron HCl (Zofran) 4 mg Q6H PRN IVP Nausea & Vomiting 11/06/19 11:00 12/06/19 10:59 Pantoprazole (Protonix) 40 mg Q12HR IV 11/06/19 21:00 12/07/19 08:59 11/07/19 08:46 Sodium Chloride 1,000 ml @ 125 mls/hr Q8H IV 11/05/19 23:45 12/05/19 23:44 11/07/19 08:45 Temazepam (Restoril) 15 mg HSPRN PRN ORAL Insomnia 11/06/19 11:00 11/13/19 10:59 Vancomycin HCl ([facility] pharmacy to dose) 1 ea DAILY PRN MISC Per rx protocol 11/06/19 12:45 12/06/19 12:44 Assessment/Plan Assessment/Plan: Hematology Consultation Note RFC Thrombocytopenia worsening, anemia REQ MD: Zenon BAZAN 11/07/[address] Bradley to eval This is a 74-year-old male, [facility] patient, who was just admitted to telemetry for sepsis and lower extremity gangrene. A CODE BLUE was called because patient became very bradycardic and blood pressure dropped. Patient also stopped breathing. 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 Has been seen by pulm, surg, renal, id and is on antibiotics, at this time is intubated in the Er, labs were reviewed, Allergies: Coded Allergies: No Known Allergies (Unverified , 11/05/19) COVID-19 Screening Contact w/high risk pt: No Recent Travel to affected area: No Experienced COVID-19 symptoms?: No COVID-19 Testing performed HEALTH WORKERS: No Patient History Past Medical History: see triage record, old chart reviewed Past Surgical History: other Pertinent Family History: none Social History: Denies: smoking Immunizations: other Reviewed Nursing Documentation: PMH: Agreed; PSxH: Agreed Nursing Documentation-PMH Past Medical History: No History, Except For Hx Cardiac Problems: Yes - A FIB, CHF Hx Hypertension: Yes Hx COPD: No - PLEURAL EFFUSION Hx Gastrointestinal Problems: No - ENCEPHALOPATHY, GANGRENE, MULT PRESSURE ULCERS, AKD History Of Psychiatric Problem: Yes - SUBSTANCE ABUSE Hx Cerebrovascular Accident: No - DYSPHAGIA, PROSTATIC HYPERPLASIA ER ROS - General Review of Systems Respiratory: Reports: shortness of breath All Other Systems: limited - Secondary to his condition ER Physical Exam - General Physical Exam Vital Signs Date Time Temp Pulse Resp B/P (MAP) Pulse Ox O2 Delivery O2 Flow Rate FiO2 11/05/19 14:47 98.4 92 18 130/76 (94) 94 Nasal Cannula 2.0 11/05/19 22:25 100 Vitals with hypotension and hypoxia Sp02 EP Interpretation: abnormal General Appearance: severe distress, Stupor Head: normocephalic, atraumatic Eyes: bilateral eye PERRL, bilateral eye EOMI ENT: dry mucus membranes - Mucus in oropharynx, other Neck: full range of motion, supple, no meningismus Respiratory: chest non-tender, crackles, rhonchi Cardiovascular #1: regular rate, rhythm, no murmur Gastrointestinal: normal bowel sounds, non tender, no mass, no organomegaly, no bruit, non-distended Musculoskeletal: other - Gangrene to lower extremities Neurologic: no pronator Skin: warm/dry ER Procedures - General Procedures Critical Care Time Critical Care Time Critical care is mandated in this patient who presented with aspiratory collapse. Patient require my urgent intervention to attenuate the risks of metabolic collapse which may lead to cardiovascular collapse and . Critical care time is 35 minutes excluding any reportable procedure. Critical care time included evaluation, multiple reevaluation, looking at old charts, interpreting laboratory and diagnostic data, discussing case with patient and family and consultants, and charting. Central Line Central Line : Consent: Emergent Central Line Lumen: triple Maximal Sterile Barrier Tech: yes cap, yes mask, yes sterile gown, yes sterile gloves, yes large sterile sheet, yes hand hygiene, yes chlorhexidine prep Central Line Postion: femoral (R) Complications: none Central Line Post Position: sutured Attempts: One Patient Tolerated: Well Complications: None Intubation Intubation : Consent: Verbal Intubation Method: orotracheal Tube Size (cm): 7.5 Breath Sounds after Intubation: equal Intubation Complications: no complications Post Intubation Xray: Yes Progress/Xray Impression: Endotracheal tube in good position. Bilateral infiltrates. No pneumothora Attempts: One Patient Tolerated: Well Complications: None ER MDM/Plan Medical Decision Making Diagnostic Impression: Primary Impression: Respiratory failure requiring intubation Additional Impressions: Septic shock HCAP (healthcare-associated pneumonia) ER Course Patient with respiratory arrest requiring intubation. Most likely secondary to septic shock and pneumonia. May have COVID pneumonia. Patient intubated and central line placed. Patient transferred in ICU. Chest X-Ray Diagnostic Results Josué Terry MD Nov 07, 2019 11:14
--- NOTE | 2019-11-07 11:29 | Hematology/Onc Progress Note ---
Assessment/Plan Assessment/Plan # Thrombocytopenia - potential causes multifactorial, evaluate liver and viral etiologies to begin, also could be related to underlying medications patient has received. --> Hep panel and HIV ordered --> US abd to evaluate for cirrhosis and hsm ordered --> Peripheral smear ordered to evaluate for blasts /schistocytes --> abx and other meds have been reviewed --> ok for ppx if plt >50k w/ either heparin or lovenox --> Transfuse if Plt < 20k and fever, or if Plt < 10k without fever --> plt trend 123-->88-->65 ->> abx reviewed, is on vanc/orquidea # Anemia of chronic disease due to underlying chronic medical issues, multifactorial v Gi bleed --> Anemia workup has been ordered, rule out gi bleed --> No evidence of hemolysis is noted, peripheral smear has been reviewed. --> Hgb goal >7. Transfuse prn. --> Epogen or iron at this time is not particularly indicated --> Medications have been reviewed --> low threshold for gi evaluation in case has occult + # Acute Renal failure, mainly acute, most likely secondary to septic shock --> per renal care --> ivfs as needed # Acute respiratory failure requiring intubation --> now on vent, in icu # Healthcare associated pneumonia --> abx per id # Atrial fibrillation with fast ventricular rate --> acticoag per cards # History of CHF # Pleural effusion # Dementia/Alzheimer's # History of CVA # History of COPD # Dry gangrene of the lower extremities # Severe hypoalbuminemia The timing of this note does not necessarily reflect the time of the patient was seen. Greatly appreciate consultation. Subjective Allergies: Coded Allergies: No Known Allergies (Unverified , 11/05/19) Subjective 11/06 icu, confused, vent, hgb 7.9, prbc ordered Objective Objective Current Medications Medications (Trade) Dose Ordered Sig/Briana Route PRN Reason Start Time Stop Time Status Last Admin Dose Admin Acetaminophen (Tylenol) 650 mg Q4H PRN ORAL Fever 11/06/19 11:00 12/06/19 10:59 11/07/19 03:30 Albumin Human 50 ml @ 50 mls/hr Q8H IV 11/06/19 19:00 11/07/19 11:59 11/07/19 11:01 Albuterol/ Ipratropium (Albuterol/ Ipratropium) 3 ml Q4H PRN HHN Shortness of Breath 11/06/19 11:00 11/11/19 10:59 Chlorhexidine Gluconate (Jenna-Hex 2%) 1 applic DAILY@2000 TOPIC 11/06/19 20:00 02/04/20 19:59 11/06/19 20:18 Dextrose (Dextrose 50%) 25 ml Q30MIN PRN IV Hypoglycemia 11/06/19 11:00 02/04/20 10:59 Dextrose (Dextrose 50%) 50 ml Q30MIN PRN IV Hypoglycemia 11/06/19 11:00 02/04/20 10:59 Heparin Sodium (Porcine) (Heparin 5000 units/ml) 5,000 units EVERY 12 HOURS SUBQ 11/06/19 21:00 12/21/19 20:59 Lorazepam (Ativan 2mg/ml 1ml) 2 mg Q4H PRN IV For Anxiety 11/06/19 11:00 11/13/19 10:59 Magnesium Sulfate 100 ml @ 100 mls/hr Q1H IVPB 11/07/19 08:30 11/07/19 12:29 11/07/19 11:01 Meropenem 1 gm/ Sodium Chloride 55 ml @ 110 mls/hr Q12H IVPB 11/06/19 14:00 11/11/19 13:59 11/07/19 01:30 Morphine Sulfate (Morphine Sulfate) 4 mg Q4H PRN IVP For Pain 11/06/19 11:00 11/13/19 10:59 11/07/19 09:58 Norepinephrine Bitartrate 4 mg/ Dextrose 250 ml @ 0 mls/hr Q24H IV 11/05/19 23:30 12/05/19 23:29 11/07/19 05:47 Ondansetron HCl (Zofran) 4 mg Q6H PRN IVP Nausea & Vomiting 11/06/19 11:00 12/06/19 10:59 Pantoprazole (Protonix) 40 mg Q12HR IV 11/06/19 21:00 12/07/19 08:59 11/07/19 08:46 Sodium Chloride 1,000 ml @ 125 mls/hr Q8H IV 11/05/19 23:45 12/05/19 23:44 11/07/19 08:45 Temazepam (Restoril) 15 mg HSPRN PRN ORAL Insomnia 11/06/19 11:00 11/13/19 10:59 Vancomycin HCl (Vanco pharmacy to dose) 1 ea DAILY PRN MISC Per rx protocol 11/06/19 12:45 12/06/19 12:44 Last 24 Hour Vital Signs Date Time Temp Pulse Resp B/P (MAP) Pulse Ox O2 Delivery O2 Flow Rate FiO2 11/07/19 11:00 118/50 11/07/19 11:00 87 17 118/50 (72) 100 11/07/19 10:45 86 17 122/50 (74) 100 11/07/19 10:30 85 18 117/46 (69) 100 11/07/19 10:15 85 17 100/47 (64) 100 11/07/19 10:00 86 18 119/55 (76) 100 11/07/19 09:45 88 18 120/50 (73) 11/07/19 09:30 87 17 116/42 (66) 100 11/07/19 09:00 89 17 125/52 (76) 100 11/07/19 09:00 125/52 11/07/19 08:30 98.4 90 17 123/52 (75) 100 11/07/19 08:30 123/52 11/07/19 08:00 40 11/07/19 08:00 Mechanical Ventilator 11/07/19 08:00 119/51 11/07/19 08:00 94 15 119/51 (73) 100 11/07/19 08:00 88 11/07/19 07:40 94 20 40 11/07/19 07:30 94 19 130/44 (72) 11/07/19 07:00 93 20 146/132 (137) 100 11/07/19 06:30 97 23 109/71 (84) 100 11/07/19 06:00 99.6 103 21 117/64 (81) 100 11/07/19 06:00 117/64 11/07/19 05:47 135/46 11/07/19 05:30 102 24 135/46 (75) 96 11/07/19 05:00 103 24 125/99 (108) 100 11/07/19 05:00 125/99 11/07/19 04:30 98 21 128/53 (78) 98 11/07/19 04:00 101.4 98 20 114/61 (78) 98 11/07/19 04:00 40 11/07/19 04:00 101.4 11/07/19 04:00 114/61 11/07/19 04:00 Mechanical Ventilator 11/07/19 03:30 95 18 138/48 (78) 99 11/07/19 03:26 94 11/07/19 03:17 102 21 40 11/07/19 03:00 92 18 120/51 (74) 98 11/07/19 03:00 120/51 11/07/19 02:30 92 17 128/45 (72) 98 11/07/19 02:00 147/50 11/07/19 02:00 96 17 147/50 (82) 100 11/07/19 01:30 91 17 140/45 (76) 98 11/07/19 01:00 89 16 138/51 (80) 98 11/07/19 01:00 138/51 11/07/19 00:30 99.6 95 18 143/55 (84) 99 11/07/19 00:00 94 11/07/19 00:00 Mechanical Ventilator 11/07/19 00:00 94 18 140/59 (86) 99 11/07/19 00:00 140/59 11/07/19 00:00 40 11/06/19 23:53 94 17 40 11/06/19 23:30 88 17 150/54 (86) 100 11/06/19 23:00 88 17 139/50 (79) 98 11/06/19 23:00 139/50 11/06/19 22:30 91 18 152/55 (87) 98 11/06/19 22:16 132/52 11/06/19 22:00 87 16 132/52 (78) 100 11/06/19 21:30 89 17 134/59 (84) 99 11/06/19 21:00 127/52 11/06/19 21:00 91 18 127/52 (77) 100 11/06/19 20:30 112/55 11/06/19 20:30 99.9 93 18 112/55 (74) 100 11/06/19 20:00 Mechanical Ventilator 6/2/20 20:00 137/48 6/2/20 20:00 40 11/06/19 20:00 88 15 137/48 (77) 100 11/06/19 19:45 87 21 40 11/06/19 19:30 85 16 154/62 (92) 99 11/06/19 19:26 90 11/06/19 19:00 86 16 110/60 (77) 100 11/06/19 19:00 124/89 11/06/19 18:45 86 22 82/44 (57) 98 11/06/19 18:45 87/44 11/06/19 18:30 83/39 11/06/19 18:30 88 20 82/37 (52) 97 11/06/19 18:15 76/42 11/06/19 18:15 92 20 88/45 (59) 96 11/06/19 18:00 96 20 88/45 (59) 98 11/06/19 18:00 88/45 11/06/19 17:54 100.9 11/06/19 17:30 99 18 116/60 (78) 100 11/06/19 17:00 100/44 11/06/19 17:00 99 17 100/44 (62) 100 11/06/19 16:29 99 19 99/53 (68) 99 11/06/19 16:00 98 11/06/19 16:00 Mechanical Ventilator 11/06/19 16:00 40 11/06/19 16:00 125/60 11/06/19 16:00 100 19 125/50 (75) 99 11/06/19 16:00 100.0 11/06/19 15:30 99 18 113/52 (72) 99 11/06/19 15:30 99 21 113/62 (79) 98 11/06/19 15:07 91 20 40 11/06/19 15:00 97 18 114/51 (72) 99 11/06/19 15:00 114/51 11/06/19 15:00 96 17 98/52 (67) 99 11/06/19 14:30 98 18 106/63 (77) 99 11/06/19 14:30 99 19 91/59 (70) 99 11/06/19 14:00 101 17 105/56 (72) 97 11/06/19 14:00 108/53 11/06/19 13:30 103 20 105/53 (70) 98 11/06/19 13:00 116/60 11/06/19 13:00 103 20 116/60 (78) 97 11/06/19 12:30 105 21 109/54 (72) 97 11/06/19 12:00 99.4 11/06/19 12:00 105 11/06/19 12:00 102 22 116/53 (74) 97 11/06/19 12:00 40 11/06/19 12:00 116/53 11/06/19 12:00 Mechanical Ventilator 11/06/19 11:30 97 22 122/48 (72) 93 11/06/19 11:24 93 18 40 11/06/19 11:00 124/48 11/06/19 11:00 97 18 108/45 (66) 85 11/06/19 10:30 95 17 128/43 (71) 99 11/06/19 10:00 92 17 112/47 (68) 97 11/06/19 10:00 115/52 11/06/19 09:30 92 19 109/41 (63) 100 11/06/19 09:00 114/46 11/06/19 09:00 94 18 108/55 (72) 99 11/06/19 08:30 92 17 119/48 (71) 98 11/06/19 08:00 95 11/06/19 08:00 Mechanical Ventilator 11/06/19 08:00 113/44 11/06/19 08:00 100 11/06/19 08:00 99.1 88 17 118/44 (68) 100 11/06/19 07:30 88 16 119/47 (71) 98 11/06/19 07:07 83 16 40 11/06/19 07:00 110/61 11/06/19 07:00 89 16 109/50 (69) 97 11/06/19 06:30 90 18 117/40 (65) 100 11/06/19 06:00 87 16 111/47 (68) 100 11/06/19 06:00 111/47 11/06/19 05:34 119/57 11/06/19 05:30 89 17 119/57 (77) 99 11/06/19 05:00 87 17 127/47 (73) 99 11/06/19 05:00 127/47 11/06/19 04:30 93 18 106/54 (71) 98 11/06/19 04:00 98.6 89 16 103/52 (69) 98 11/06/19 04:00 103/52 11/06/19 04:00 100 11/06/19 04:00 Mechanical Ventilator 11/06/19 04:00 86 11/06/19 03:30 99 21 131/92 (105) 98 11/06/19 03:00 97 24 137/59 (85) 100 11/06/19 03:00 137/59 11/06/19 02:57 99 24 40 11/06/19 02:30 89 16 133/92 (106) 100 11/06/19 02:00 89 18 125/86 (99) 100 11/06/19 02:00 125/86 11/06/19 01:30 97 22 114/56 (75) 73 11/06/19 01:00 100 19 117/73 (88) 100 11/06/19 01:00 117/73 11/06/19 00:45 101 17 169/155 (160) 100 11/06/19 00:45 169/155 11/06/19 00:30 97 17 152/97 (115) 100 11/06/19 00:03 68/45 11/06/19 00:00 100 11/06/19 00:00 98.6 94 20 107/77 (87) 99 11/06/19 00:00 97 11/05/19 22:25 88 16 100 11/05/19 22:25 88 16 98 Mechanical Ventilator 100 11/05/19 21:30 98.3 61 18 98/51 (67) 96 61 11/05/19 21:30 Room Air 11/05/19 21:25 98.4 108 21 118/43 98 Nasal Cannula 2.0 11/05/19 20:46 98.4 11/05/19 19:50 98.4 108 21 118/43 98 Nasal Cannula 2.0 11/05/19 18:45 98.4 11/05/19 17:50 92 18 Nasal Cannula 2.0 11/05/19 17:49 98.4 98 18 135/78 98 Nasal Cannula 2.0 11/05/19 14:47 98.4 92 18 130/76 (94) 94 Nasal Cannula 2.0 Intake and Output 11/06/19 11/07/19 19:00 07:00 Intake Total 1918.745 ml 2128.75 ml Output Total 155 ml 205 ml Balance 1763.745 ml 1923.75 ml IV Total 1918.745 ml 2078.75 ml Other 50 ml Output Urine Total 155 ml 205 ml Labs Test 11/05/19 15:48 11/05/19 16:15 11/05/19 23:30 11/06/19 04:00 Urine Color Yellow Urine Appearance Slightly cloudy Urine pH 5 (4.5-8.0) Urine Specific [place] 1.015 (1.005-1.035) Urine Protein 3+ (NEGATIVE) Urine Glucose (UA) Negative (NEGATIVE) Urine Ketones Negative (NEGATIVE) Urine Blood 4+ (NEGATIVE) Urine Nitrite Negative (NEGATIVE) Urine Bilirubin 1+ (NEGATIVE) Urine Ictotest Negativ e (NEGATIVE) Urine Urobilinogen 8 MG/DL (0.0-1.0) Urine Leukocyte Esterase 3+ (NEGATIVE) Urine RBC 10-15 /HPF (0 - 0) Urine WBC 40-60 /HPF (0 - 0) Urine Squamous Epithelial Cells Occasional /LPF Urine Amorphous Sediment Many /LPF (NONE) Urine Bacteria Many /HPF (NONE) White Blood Count 5.7 K/UL (4.8-10.8) 5.2 K/UL (4.8-10.8) Red Blood Count 3.40 M/UL (4.70-6.10) 3.20 M/UL (4.70-6.10) Hemoglobin 9.8 G/DL (14.2-18.0) 9.2 G/DL (14.2-18.0) Hematocrit 31.7 % (42.0-52.0) 27.6 % (42.0-52.0) Mean Corpuscular Volume 93 FL (80-99) 86 FL (80-99) Mean Corpuscular Hemoglobin 28.7 PG (27.0-31.0) 28.7 PG (27.0-31.0) Mean Corpuscular Hemoglobin Concent 30.7 G/DL (32.0-36.0) 33.2 G/DL (32.0-36.0) Red Cell Distribution Width 16.0 % (11.6-14.8) 13.8 % (11.6-14.8) Platelet Count 123 K/UL (150-450) 88 K/UL (150-450) Mean Platelet Volume 8.4 FL (6.5-10.1) 6.0 FL (6.5-10.1) Neutrophils (%) (Auto) % (45.0-75.0) % (45.0-75.0) Lymphocytes (%) (Auto) % (20.0-45.0) % (20.0-45.0) Monocytes (%) (Auto) % (1.0-10.0) % (1.0-10.0) Eosinophils (%) (Auto) % (0.0-3.0) % (0.0-3.0) Basophils (%) (Auto) % (0.0-2.0) % (0.0-2.0) Differential Total Cells Counted 100 100 Neutrophils % (Manual) 90 % (45-75) 91 % (45-75) Lymphocytes % (Manual) 4 % (20-45) 5 % (20-45) Monocytes % (Manual) 2 % (1-10) 2 % (1-10) Eosinophils % (Manual) 0 % (0-3) 1 % (0-3) Basophils % (Manual) 0 % (0-2) 1 % (0-2) Band Neutrophils 4 % (0-8) 0 % (0-8) Platelet Estimate Decreased Decreased Platelet Morphology Normal Normal Hypochromasia 1+ 2+ Anisocytosis 1+ 1+ Prothrombin Time 17.5 SEC (9.30-11.50) Prothromb Time International Ratio 1.6 (0.9-1.1) Activated Partial Thromboplast Time 48 SEC (23-33) D-Dimer 7.10 mg/L FEU (0.00-0.49) Sodium Level 132 MMOL/L (136-145) 132 MMOL/L (136-145) Potassium Level 3.8 MMOL/L (3.5-5.1) 3.4 MMOL/L (3.5-5.1) Chloride Level 95 MMOL/L (98-107) 95 MMOL/L (98-107) Carbon Dioxide Level 33 MMOL/L (21-32) 32 MMOL/L (21-32) Anion Gap 4 mmol/L (5-15) 5 mmol/L (5-15) Blood Urea Nitrogen 40 mg/dL (7-18) 42 mg/dL (7-18) Creatinine 2.0 MG/DL (0.55-1.30) 2.3 MG/DL (0.55-1.30) Estimat Glomerular Filtration Rate 39.5 mL/min (>60) 33.7 mL/min (>60) Glucose Level 120 MG/DL (74-106) 97 MG/DL (74-106) Lactic Acid Level 1.30 mmol/L (0.4-2.0) Calcium Level 7.8 MG/DL (8.5-10.1) 7.4 MG/DL (8.5-10.1) Total Bilirubin 2.1 MG/DL (0.2-1.0) 2.3 MG/DL (0.2-1.0) Direct Bilirubin 1.8 MG/DL (0.0-0.3) 2.0 MG/DL (0.0-0.3) Aspartate Amino Transf (AST/SGOT) 29 U/L (15-37) 27 U/L (15-37) Alanine Aminotransferase (ALT/SGPT) 23 U/L (12-78) 25 U/L (12-78) Alkaline Phosphatase 136 U/L (46-116) 123 U/L (46-116) Troponin I 0.066 ng/mL (0.000-0.056) C-Reactive Protein, Quantitative 18.8 mg/dL (0.00-0.90) Total Protein 5.6 G/DL (6.4-8.2) 5.2 G/DL (6.4-8.2) Albumin 1.3 G/DL (3.4-5.0) 1.3 G/DL (3.4-5.0) Globulin 4.3 g/dL 3.9 g/dL Albumin/Globulin Ratio 0.3 (1.0-2.7) 0.3 (1.0-2.7) Lipase 76 U/L (73-393) Digoxin Level 1.4 NG/ML (0.5-2.0) Arterial Blood pH 7.457 (7.350-7.450) Arterial Blood Partial Pressure CO2 44.4 mmHg (35.0-45.0) Arterial Blood Partial Pressure O2 199.1 mmHg (75.0-100.0) Arterial Blood HCO3 30.7 mmol/L (22.0-26.0) Arterial Blood Oxygen Saturation 98.6 % (95-100) Arterial Blood Base Excess 6.1 (-2-2) Manny Test Positive Erythrocyte Sedimentation Rate 45 MM/HR (0-20) Hemoglobin A1c 7.4 % (4.3-6.0) Pro-B-Type Natriuretic Peptide > 05459 pg/mL (0-125) Test 11/06/19 11:13 11/06/19 11:27 11/06/19 17:58 11/07/19 04:00 Troponin I 0.098 ng/mL (0.000-0.056) 0.165 ng/mL (0.000-0.056) Arterial Blood pH 7.524 (7.350-7.450) Arterial Blood Partial Pressure CO2 34.6 mmHg (35.0-45.0) Arterial Blood Partial Pressure O2 65.6 mmHg (75.0-100.0) Arterial Blood HCO3 27.9 mmol/L (22.0-26.0) Arterial Blood Oxygen Saturation 93.5 % (95-100) Arterial Blood Base Excess 4.9 (-2-2) Manny Test Positive Urine Random Sodium < 20 mmol/L (20-110) Test 11/07/19 04:40 11/07/19 05:50 White Blood Count 5.1 K/UL (4.8-10.8) Red Blood Count 2.77 M/UL (4.70-6.10) Hemoglobin 7.9 G/DL (14.2-18.0) Hematocrit 23.6 % (42.0-52.0) Mean Corpuscular Volume 85 FL (80-99) Mean Corpuscular Hemoglobin 28.6 PG (27.0-31.0) Mean Corpuscular Hemoglobin Concent 33.6 G/DL (32.0-36.0) Red Cell Distribution Width 13.8 % (11.6-14.8) Platelet Count 65 K/UL (150-450) Mean Platelet Volume 7.2 FL (6.5-10.1) Neutrophils (%) (Auto) % (45.0-75.0) Lymphocytes (%) (Auto) % (20.0-45.0) Monocytes (%) (Auto) % (1.0-10.0) Eosinophils (%) (Auto) % (0.0-3.0) Basophils (%) (Auto) % (0.0-2.0) Differential Total Cells Counted 100 Neutrophils % (Manual) 74 % (45-75) Lymphocytes % (Manual) 6 % (20-45) Monocytes % (Manual) 3 % (1-10) Eosinophils % (Manual) 1 % (0-3) Basophils % (Manual) 0 % (0-2) Band Neutrophils 16 % (0-8) Platelet Estimate Decreased Platelet Morphology Normal Hypochromasia 1+ Anisocytosis 1+ Schistocytes Rare Sodium Level 135 MMOL/L (136-145) Potassium Level 3.4 MMOL/L (3.5-5.1) Chloride Level 99 MMOL/L (98-107) Carbon Dioxide Level 29 MMOL/L (21-32) Anion Gap 8 mmol/L (5-15) Blood Urea Nitrogen 48 mg/dL (7-18) Creatinine 2.7 MG/DL (0.55-1.30) Estimat Glomerular Filtration Rate 28.0 mL/min (>60) Glucose Level 75 MG/DL (74-106) Hemoglobin A1c 7.2 % (4.3-6.0) Uric Acid 5.5 MG/DL (2.6-7.2) Calcium Level 7.1 MG/DL (8.5-10.1) Phosphorus Level 2.7 MG/DL (2.5-4.9) Magnesium Level 1.3 MG/DL (1.8-2.4) Iron Level 18 ug/dL (50-175) Total Iron Binding Capacity 62 ug/dL (250-450) Percent Iron Saturation 29 % (15-50) Unsaturated Iron Binding 44 ug/dL (112-346) Ferritin 1308 NG/ML (8-388) Total Bilirubin 2.6 MG/DL (0.2-1.0) Direct Bilirubin 2.2 MG/DL (0.0-0.3) Gamma Glutamyl Transpeptidase 81 U/L (5-85) Aspartate Amino Transf (AST/SGOT) 33 U/L (15-37) Alanine Aminotransferase (ALT/SGPT) 17 U/L (12-78) Alkaline Phosphatase 113 U/L (46-116) Total Creatine Kinase 28 U/L (26-308) C-Reactive Protein, Quantitative 19.0 mg/dL (0.00-0.90) Pro-B-Type Natriuretic Peptide > 01223 pg/mL (0-125) Total Protein 4.6 G/DL (6.4-8.2) Albumin 1.1 G/DL (3.4-5.0) Globulin 3.5 g/dL Albumin/Globulin Ratio 0.3 (1.0-2.7) Vitamin B12 Level > 2000 PG/ML (193-986) Folate 9.6 NG/ML (8.6-58.9) Random Vancomycin Level 12.9 ug/mL Urine Eosinophils None seen (NONE SEEN) Height (Feet): 5 Height (Inches): 11.00 Weight (Pounds): 183 Objective General: obtunded, Stupor Head: normocephalic, atraumatic Eyes: bilateral eye PERRL, bilateral eye EOMI ENT: dry mucus membranes - Mucus in oropharynx, other Respiratory: chest non-tender, crackles, rhonchi ++ vent Cardiovascular: regular rate, rhythm, no murmur Gastrointestinal: normal bowel sounds, non tender, no mass, no organomegaly, no bruit, non-distended Musculoskeletal: other - Gangrene to lower extremities Neurologic: no pronator Josué Terry MD Nov 07, 2019 11:29
--- NOTE | 2019-11-07 11:39 | Infectious Diseases Prog Note ---
Assessment/Plan Assessment/Plan Assessment: SP bradycardic cardiac arrest, VDRF 11/04 Septic Shock- pressors requirements decreasing Pneumonia- r/o COVID19 (resident of [facility] with large outbreak) -11/06 CXR: Equivocal increased right pleural effusion. Otherwise little post exchange manager 2 days -11/05 sp cx p -11/04 CXR: Overall similar appearing bilateral extensive lung opacities concerning for multifocal pneumonia and/or pulmonary edema in the proper context. Unchanged moderate right and trace left pleural effusions with passive atelectasis. Unchanged retrocardiac atelectasis or consolidation. SARS-COV2 PCR neg UTI c/w gram negative bacteremia (high grade) -11/04 u/a wbc 40-60, nit neg, leuk +3; ucx >100k E.coli (price S) Bcx /4 GNR Fever No leukocytosis Thrombocytopenia/Lymphopenia B/l forefoot and R hand dry gangrene MANUEL, worsening CHF pleural effusion CVA dysphagia BPH HTN Afib COPD LE dry gangrene [place] resident ([facility]) Plan: -Cont empiric IV Vancomycin and Meropenem #2 pending cultures -f/u cx -Monitor CBC/CMP, temperature -COVID19 isolation and testing; send 2nd test -f/u Bcx x2, sp cx -aspiration precautions -ETT/ICU care Thank you for consulting [facility]. Will continue to follow along with you. Subjective Allergies: Coded Allergies: No Known Allergies (Unverified , 11/05/19) Subjective Tm 101.4 Fio2 40% no leukocytosis levophed down to 6 bacteremic Objective Vital Signs Last 24 Hour Vital Signs Date Time Temp Pulse Resp B/P (MAP) Pulse Ox O2 Delivery O2 Flow Rate FiO2 11/07/19 11:24 83 19 40 11/07/19 11:00 118/50 11/07/19 11:00 87 17 118/50 (72) 100 11/07/19 10:45 86 17 122/50 (74) 100 11/07/19 10:30 85 18 117/46 (69) 100 11/07/19 10:15 85 17 100/47 (64) 100 11/07/19 10:00 86 18 119/55 (76) 100 11/07/19 09:45 88 18 120/50 (73) 11/07/19 09:30 87 17 116/42 (66) 100 11/07/19 09:00 89 17 125/52 (76) 100 11/07/19 09:00 125/52 11/07/19 08:30 98.4 90 17 123/52 (75) 100 11/07/19 08:30 123/52 11/07/19 08:00 40 11/07/19 08:00 Mechanical Ventilator 11/07/19 08:00 119/51 11/07/19 08:00 94 15 119/51 (73) 100 11/07/19 08:00 88 11/07/19 07:40 94 20 40 11/07/19 07:30 94 19 130/44 (72) 11/07/19 07:00 93 20 146/132 (137) 100 11/07/19 06:30 97 23 109/71 (84) 100 11/07/19 06:00 99.6 103 21 117/64 (81) 100 11/07/19 06:00 117/64 11/07/19 05:47 135/46 11/07/19 05:30 102 24 135/46 (75) 96 11/07/19 05:00 103 24 125/99 (108) 100 11/07/19 05:00 125/99 11/07/19 04:30 98 21 128/53 (78) 98 11/07/19 04:00 101.4 98 20 114/61 (78) 98 11/07/19 04:00 40 11/07/19 04:00 101.4 11/07/19 04:00 114/61 11/07/19 04:00 Mechanical Ventilator 11/07/19 03:30 95 18 138/48 (78) 99 11/07/19 03:26 94 11/07/19 03:17 102 21 40 11/07/19 03:00 92 18 120/51 (74) 98 11/07/19 03:00 120/51 11/07/19 02:30 92 17 128/45 (72) 98 11/07/19 02:00 147/50 11/07/19 02:00 96 17 147/50 (82) 100 11/07/19 01:30 91 17 140/45 (76) 98 11/07/19 01:00 89 16 138/51 (80) 98 6/3/20 01:00 138/51 11/07/19 00:30 99.6 95 18 143/55 (84) 99 11/07/19 00:00 94 11/07/19 00:00 Mechanical Ventilator 11/07/19 00:00 94 18 140/59 (86) 99 20 00:00 140/59 11/07/19 00:00 40 11/06/19 23:53 94 17 40 11/06/19 23:30 88 17 150/54 (86) 100 11/06/19 23:00 88 17 139/50 (79) 98 11/06/19 23:00 139/50 11/06/19 22:30 91 18 152/55 (87) 98 11/06/19 22:16 132/52 11/06/19 22:00 87 16 132/52 (78) 100 11/06/19 21:30 89 17 134/59 (84) 99 11/06/19 21:00 127/52 11/06/19 21:00 91 18 127/52 (77) 100 11/06/19 20:30 112/55 11/06/19 20:30 99.9 93 18 112/55 (74) 100 11/06/19 20:00 Mechanical Ventilator 11/06/19 20:00 137/48 11/06/19 20:00 40 11/06/19 20:00 88 15 137/48 (77) 100 11/06/19 19:45 87 21 40 11/06/19 19:30 85 16 154/62 (92) 99 11/06/19 19:26 90 11/06/19 19:00 86 16 110/60 (77) 100 11/06/19 19:00 124/89 11/06/19 18:45 86 22 82/44 (57) 98 11/06/19 18:45 87/44 11/06/19 18:30 83/39 11/06/19 18:30 88 20 82/37 (52) 97 11/06/19 18:15 76/42 20 18:15 92 20 88/45 (59) 96 11/06/19 18:00 96 20 88/45 (59) 98 11/06/19 18:00 88/45 11/06/19 17:54 100.9 6/2/20 17:30 99 18 116/60 (78) 100 11/06/19 17:00 100/44 11/06/19 17:00 99 17 100/44 (62) 100 11/06/19 16:29 99 19 99/53 (68) 99 11/06/19 16:00 98 11/06/19 16:00 Mechanical Ventilator 11/06/19 16:00 40 11/06/19 16:00 125/60 11/06/19 16:00 100 19 125/50 (75) 99 11/06/19 16:00 100.0 11/06/19 15:30 99 18 113/52 (72) 99 11/06/19 15:30 99 21 113/62 (79) 98 11/06/19 15:07 91 20 40 11/06/19 15:00 97 18 114/51 (72) 99 11/06/19 15:00 114/51 11/06/19 15:00 96 17 98/52 (67) 99 11/06/19 14:30 98 18 106/63 (77) 99 11/06/19 14:30 99 19 91/59 (70) 99 11/06/19 14:00 101 17 105/56 (72) 97 11/06/19 14:00 108/53 11/06/19 13:30 103 20 105/53 (70) 98 11/06/19 13:00 116/60 11/06/19 13:00 103 20 116/60 (78) 97 11/06/19 12:30 105 21 109/54 (72) 97 11/06/19 12:00 99.4 11/06/19 12:00 105 11/06/19 12:00 102 22 116/53 (74) 97 11/06/19 12:00 40 11/06/19 12:00 116/53 11/06/19 12:00 Mechanical Ventilator 11/06/19 11:30 97 22 122/48 (72) 93 Height (Feet): 5 Height (Inches): 11.00 Weight (Pounds): 183 Microbiology Date/Time Source Procedure Growth Status 11/05/19 16:20 Blood Blood Culture - Preliminary Gram Negative Bacillus 1 Resulted 11/05/19 16:10 Blood Blood Culture - Preliminary Gram Negative Bacillus 1 Resulted 11/05/19 22:00 Nasopharynx Coronavirus COVID-19 PCR ([facility]) - Final Complete 11/05/19 15:48 Urine,Clean Catch Urine Culture - Final Escherichia Coli Complete Laboratory Tests Test 11/06/19 17:58 11/07/19 04:00 11/07/19 04:40 11/07/19 05:50 Urine Random Sodium < 20 mmol/L (20-110) L Troponin I 0.165 ng/mL (0.000-0.056) White Blood Count 5.1 K/UL (4.8-10.8) Red Blood Count 2.77 M/UL (4.70-6.10) L Hemoglobin 7.9 G/DL (14.2-18.0) L Hematocrit 23.6 % (42.0-52.0) L Mean Corpuscular Volume 85 FL (80-99) Mean Corpuscular Hemoglobin 28.6 PG (27.0-31.0) Mean Corpuscular Hemoglobin Concent 33.6 G/DL (32.0-36.0) Red Cell Distribution Width 13.8 % (11.6-14.8) Platelet Count 65 K/UL (150-450) L Mean Platelet Volume 7.2 FL (6.5-10.1) Neutrophils (%) (Auto) % (45.0-75.0) Lymphocytes (%) (Auto) % (20.0-45.0) Monocytes (%) (Auto) % (1.0-10.0) Eosinophils (%) (Auto) % (0.0-3.0) Basophils (%) (Auto) % (0.0-2.0) Differential Total Cells Counted 100 Neutrophils % (Manual) 74 % (45-75) Lymphocytes % (Manual) 6 % (20-45) L Monocytes % (Manual) 3 % (1-10) Eosinophils % (Manual) 1 % (0-3) Basophils % (Manual) 0 % (0-2) Band Neutrophils 16 % (0-8) H Platelet Estimate Decreased L Platelet Morphology Normal Hypochromasia 1+ Anisocytosis 1+ Schistocytes Rare Sodium Level 135 MMOL/L (136-145) L Potassium Level 3.4 MMOL/L (3.5-5.1) L Chloride Level 99 MMOL/L (98-107) Carbon Dioxide Level 29 MMOL/L (21-32) Anion Gap 8 mmol/L (5-15) Blood Urea Nitrogen 48 mg/dL (7-18) H Creatinine 2.7 MG/DL (0.55-1.30) H Estimat Glomerular Filtration Rate 28.0 mL/min (>60) Glucose Level 75 MG/DL (74-106) Hemoglobin A1c 7.2 % (4.3-6.0) H Uric Acid 5.5 MG/DL (2.6-7.2) Calcium Level 7.1 MG/DL (8.5-10.1) L Phosphorus Level 2.7 MG/DL (2.5-4.9) Magnesium Level 1.3 MG/DL (1.8-2.4) L Iron Level 18 ug/dL (50-175) L Total Iron Binding Capacity 62 ug/dL (250-450) L Percent Iron Saturation 29 % (15-50) Unsaturated Iron Binding 44 ug/dL (112-346) L Ferritin 1308 NG/ML (8-388) H Total Bilirubin 2.6 MG/DL (0.2-1.0) H Direct Bilirubin 2.2 MG/DL (0.0-0.3) H Gamma Glutamyl Transpeptidase 81 U/L (5-85) Aspartate Amino Transf (AST/SGOT) 33 U/L (15-37) Alanine Aminotransferase (ALT/SGPT) 17 U/L (12-78) Alkaline Phosphatase 113 U/L (46-116) Total Creatine Kinase 28 U/L (26-308) C-Reactive Protein, Quantitative 19.0 mg/dL (0.00-0.90) H Pro-B-Type Natriuretic Peptide > 92549 pg/mL (0-125) H Total Protein 4.6 G/DL (6.4-8.2) L Albumin 1.1 G/DL (3.4-5.0) L Globulin 3.5 g/dL Albumin/Globulin Ratio 0.3 (1.0-2.7) L Vitamin B12 Level > 2000 PG/ML (193-986) H Folate 9.6 NG/ML (8.6-58.9) Cortisol AM Sample Pending Random Vancomycin Level 12.9 ug/mL Urine Eosinophils None seen (NONE SEEN) Current Medications Medications (Trade) Dose Ordered Sig/Briana Route PRN Reason Start Time Stop Time Status Last Admin Dose Admin Acetaminophen (Tylenol) 650 mg Q4H PRN ORAL Fever 11/06/19 11:00 12/06/19 10:59 11/07/19 03:30 Albumin Human 50 ml @ 50 mls/hr Q8H IV 11/06/19 19:00 11/07/19 11:59 11/07/19 11:01 Albuterol/ Ipratropium (Albuterol/ Ipratropium) 3 ml Q4H PRN HHN Shortness of Breath 11/06/19 11:00 11/11/19 10:59 Chlorhexidine Gluconate (Jenna-Hex 2%) 1 applic DAILY@2000 TOPIC 11/06/19 20:00 02/04/20 19:59 11/06/19 20:18 Dextrose (Dextrose 50%) 25 ml Q30MIN PRN IV Hypoglycemia 11/06/19 11:00 02/04/20 10:59 Dextrose (Dextrose 50%) 50 ml Q30MIN PRN IV Hypoglycemia 11/06/19 11:00 02/04/20 10:59 Heparin Sodium (Porcine) (Heparin 5000 units/ml) 5,000 units EVERY 12 HOURS SUBQ 11/06/19 21:00 12/21/19 20:59 Lorazepam (Ativan 2mg/ml 1ml) 2 mg Q4H PRN IV For Anxiety 11/06/19 11:00 11/13/19 10:59 Magnesium Sulfate 100 ml @ 100 mls/hr Q1H IVPB 11/07/19 08:30 11/07/19 12:29 11/07/19 11:01 Meropenem 1 gm/ Sodium Chloride 55 ml @ 110 mls/hr Q12H IVPB 11/06/19 14:00 11/11/19 13:59 11/07/19 01:30 Morphine Sulfate (Morphine Sulfate) 4 mg Q4H PRN IVP For Pain 11/06/19 11:00 11/13/19 10:59 11/07/19 09:58 Norepinephrine Bitartrate 4 mg/ Dextrose 250 ml @ 0 mls/hr Q24H IV 11/05/19 23:30 12/05/19 23:29 11/07/19 05:47 Ondansetron HCl (Zofran) 4 mg Q6H PRN IVP Nausea & Vomiting 11/06/19 11:00 12/06/19 10:59 Pantoprazole (Protonix) 40 mg Q12HR IV 11/06/19 21:00 12/07/19 08:59 11/07/19 08:46 Sodium Chloride 1,000 ml @ 125 mls/hr Q8H IV 11/05/19 23:45 12/05/19 23:44 11/07/19 08:45 Temazepam (Restoril) 15 mg HSPRN PRN ORAL Insomnia 11/06/19 11:00 11/13/19 10:59 Vancomycin HCl ([facility] pharmacy to dose) 1 ea DAILY PRN MISC Per rx protocol 11/06/19 12:45 12/06/19 12:44 Olga Allred M.D. Nov 07, 2019 11:39
--- NOTE | 2019-11-07 12:20 | Nephrology Progress Note ---
Assessment/Plan Problem List: (1) MANUEL (acute kidney injury) Assessment: Serum creatinine rising (2) Renal failure (ARF), acute on chronic (3) Septic shock (4) Respiratory failure requiring intubation (5) DMII (diabetes mellitus, type 2) Assessment: Hemoglobin A1c 7.2 Assessment Renal failure, mainly acute, most likely secondary to septic shock Possible underlying chronic renal failure Acute respiratory failure requiring intubation Healthcare associated pneumonia Atrial fibrillation with fast ventricular rate History of CHF Pleural effusion Suspected coronavirus 19 infection Dementia/Alzheimer's History of CVA History of COPD Dry gangrene of the lower extremities Severe hypoalbuminemia Plan Discussed with RN Due for 1 unit of packed RBC transfusion per Dr. Mansfield change IV to D5 normal saline 75 cc an hour Mag sulfate supplements intravenously today avoid nephrotoxic's Slow hydration watch for CHF symptoms Pulmonary support Monitor renal parameters, as serum creatinine is rising Urine studies Per consultants Subjective ROS Limited/Unobtainable: Yes Objective Objective Last 24 Hour Vital Signs Date Time Temp Pulse Resp B/P (MAP) Pulse Ox O2 Delivery O2 Flow Rate FiO2 11/07/19 11:30 88 18 119/51 (73) 100 11/07/19 11:24 83 19 40 11/07/19 11:00 118/50 11/07/19 11:00 87 17 118/50 (72) 100 11/07/19 10:45 86 17 122/50 (74) 100 11/07/19 10:30 85 18 117/46 (69) 100 11/07/19 10:15 85 17 100/47 (64) 100 11/07/19 10:00 86 18 119/55 (76) 100 11/07/19 09:45 88 18 120/50 (73) 11/07/19 09:30 87 17 116/42 (66) 100 11/07/19 09:00 89 17 125/52 (76) 100 11/07/19 09:00 125/52 11/07/19 08:30 98.4 90 17 123/52 (75) 100 11/07/19 08:30 123/52 11/07/19 08:00 40 11/07/19 08:00 Mechanical Ventilator 11/07/19 08:00 119/51 11/07/19 08:00 94 15 119/51 (73) 100 11/07/19 08:00 88 11/07/19 07:40 94 20 40 11/07/19 07:30 94 19 130/44 (72) 11/07/19 07:00 93 20 146/132 (137) 100 11/07/19 06:30 97 23 109/71 (84) 100 11/07/19 06:00 99.6 103 21 117/64 (81) 100 11/07/19 06:00 117/64 11/07/19 05:47 135/46 11/07/19 05:30 102 24 135/46 (75) 96 11/07/19 05:00 103 24 125/99 (108) 100 11/07/19 05:00 125/99 11/07/19 04:30 98 21 128/53 (78) 98 11/07/19 04:00 101.4 98 20 114/61 (78) 98 11/07/19 04:00 40 11/07/19 04:00 101.4 11/07/19 04:00 114/61 11/07/19 04:00 Mechanical Ventilator 11/07/19 03:30 95 18 138/48 (78) 99 11/07/19 03:26 94 11/07/19 03:17 102 21 40 11/07/19 03:00 92 18 120/51 (74) 98 11/07/19 03:00 120/51 11/07/19 02:30 92 17 128/45 (72) 98 11/07/19 02:00 147/50 11/07/19 02:00 96 17 147/50 (82) 100 11/07/19 01:30 91 17 140/45 (76) 98 11/07/19 01:00 89 16 138/51 (80) 98 11/07/19 01:00 138/51 11/07/19 00:30 99.6 95 18 143/55 (84) 99 11/07/19 00:00 94 11/07/19 00:00 Mechanical Ventilator 11/07/19 00:00 94 18 140/59 (86) 99 11/07/19 00:00 140/59 11/07/19 00:00 40 11/06/19 23:53 94 17 40 11/06/19 23:30 88 17 150/54 (86) 100 11/06/19 23:00 88 17 139/50 (79) 98 11/06/19 23:00 139/50 11/06/19 22:30 91 18 152/55 (87) 98 20 22:16 132/52 11/06/19 22:00 87 16 132/52 (78) 100 11/06/19 21:30 89 17 134/59 (84) 99 11/06/19 21:00 127/52 11/06/19 21:00 91 18 127/52 (77) 100 11/06/19 20:30 112/55 11/06/19 20:30 99.9 93 18 112/55 (74) 100 11/06/19 20:00 Mechanical Ventilator 11/06/19 20:00 137/48 11/06/19 20:00 40 11/06/19 20:00 88 15 137/48 (77) 100 11/06/19 19:45 87 21 40 11/06/19 19:30 85 16 154/62 (92) 99 11/06/19 19:26 90 11/06/19 19:00 86 16 110/60 (77) 100 11/06/19 19:00 124/89 11/06/19 18:45 86 22 82/44 (57) 98 11/06/19 18:45 87/44 11/06/19 18:30 83/39 11/06/19 18:30 88 20 82/37 (52) 97 11/06/19 18:15 76/42 11/06/19 18:15 92 20 88/45 (59) 96 11/06/19 18:00 96 20 88/45 (59) 98 11/06/19 18:00 88/45 11/06/19 17:54 100.9 11/06/19 17:30 99 18 116/60 (78) 100 11/06/19 17:00 100/44 11/06/19 17:00 99 17 100/44 (62) 100 11/06/19 16:29 99 19 99/53 (68) 99 11/06/19 16:00 98 11/06/19 16:00 Mechanical Ventilator 11/06/19 16:00 40 11/06/19 16:00 125/60 11/06/19 16:00 100 19 125/50 (75) 99 11/06/19 16:00 100.0 11/06/19 15:30 99 18 113/52 (72) 99 11/06/19 15:30 99 21 113/62 (79) 98 11/06/19 15:07 91 20 40 11/06/19 15:00 97 18 114/51 (72) 99 11/06/19 15:00 114/51 11/06/19 15:00 96 17 98/52 (67) 99 11/06/19 14:30 98 18 106/63 (77) 99 11/06/19 14:30 99 19 91/59 (70) 99 11/06/19 14:00 101 17 105/56 (72) 97 11/06/19 14:00 108/53 11/06/19 13:30 103 20 105/53 (70) 98 11/06/19 13:00 116/60 11/06/19 13:00 103 20 116/60 (78) 97 11/06/19 12:30 105 21 109/54 (72) 97 Intake and Output 11/06/19 11/07/19 19:00 07:00 Intake Total 1918.745 ml 2128.75 ml Output Total 155 ml 205 ml Balance 1763.745 ml 1923.75 ml IV Total 1918.745 ml 2078.75 ml Other 50 ml Output Urine Total 155 ml 205 ml Laboratory Tests 11/06/19 17:58: Urine Random Sodium < 20L 11/07/19 04:00: Troponin I 0.165H 11/07/19 04:40: White Blood Count 5.1, Red Blood Count 2.77L, Hemoglobin 7.9L, Hematocrit 23.6L , Mean Corpuscular Volume 85, Mean Corpuscular Hemoglobin 28.6, Mean Corpuscular Hemoglobin Concent 33.6, Red Cell Distribution Width 13.8, Platelet Count 65L, Mean Platelet Volume 7.2, Neutrophils (%) (Auto) , Lymphocytes (%) ( Auto) , Monocytes (%) (Auto) , Eosinophils (%) (Auto) , Basophils (%) (Auto) , Differential Total Cells Counted 100, Neutrophils % (Manual) 74, Lymphocytes % ( Manual) 6L, Monocytes % (Manual) 3, Eosinophils % (Manual) 1, Basophils % ( Manual) 0, Band Neutrophils 16H, Platelet Estimate DecreasedL, Platelet Morphology Normal, Hypochromasia 1+, Anisocytosis 1+, Schistocytes Rare, Sodium Level 135L, Potassium Level 3.4L, Chloride Level 99, Carbon Dioxide Level 29, Anion Gap 8, Blood Urea Nitrogen 48H, Creatinine 2.7H, Estimat Glomerular Filtration Rate 28.0, Glucose Level 75, Hemoglobin A1c 7.2H, Uric Acid 5.5, Calcium Level 7.1L, Phosphorus Level 2.7, Magnesium Level 1.3L, Iron Level 18L, Total Iron Binding Capacity 62L, Percent Iron Saturation 29, Unsaturated Iron Binding 44L, Ferritin 1308H, Total Bilirubin 2.6H, Direct Bilirubin 2.2H, Gamma Glutamyl Transpeptidase 81, Aspartate Amino Transf (AST/SGOT) 33, Alanine Aminotransferase (ALT/SGPT) 17, Alkaline Phosphatase 113, Total Creatine Kinase 28, C-Reactive Protein, Quantitative 19.0H, Pro-B-Type Natriuretic Peptide > 50646C, Total Protein 4.6L, Albumin 1.1L, Globulin 3.5, Albumin/Globulin Ratio 0.3L, Vitamin B12 Level > 2000H, Folate 9.6, Cortisol AM Sample [Pending], Random Vancomycin Level 12.9 11/07/19 05:50: Urine Eosinophils None seen 11/07/19 11:00: Troponin I [Pending] 11/07/19 11:10: Lactic Acid Level [Pending], Hepatitis A IgM Antibody [Pending], Hepatitis B Surface Antigen [Pending], Hepatitis B Core IgM Antibody [Pending], Hepatitis C Antibody [Pending], HIV (1&2) Antibody Rapid [Pending] Height (Feet): 5 Height (Inches): 11.00 Weight (Pounds): 183 General Appearance: no apparent distress EENT: other - Intubated and vented Cardiovascular: tachycardia Respiratory/Chest: decreased breath sounds Abdomen: distended Ivan Tellez MD Nov 07, 2019 12:20
[2019-11-07] MEDS: D5NS 1,000 ML IV SCH (13:07)
[2019-11-07] MEDS: Dyna-Hex 2% Top Sol 2oz TOPIC SCH (19:48)
--- NOTE | 2019-11-07 21:18 | Surgery Progress Note ---
Surgery Progress Note Subjective Additional Comments labs noted more alert and responsive today exam stable ons upport Objective Last 24 Hour Vital Signs Date Time Temp Pulse Resp B/P (MAP) Pulse Ox O2 Delivery O2 Flow Rate FiO2 11/07/19 20:00 99.9 106 20 115/63 (80) 93 11/07/19 20:00 Mechanical Ventilator 11/07/19 20:00 40 11/07/19 19:45 110 21 120/59 (79) 94 11/07/19 19:30 108 16 40 11/07/19 19:30 108 21 120/52 (74) 87 11/07/19 19:23 109 11/07/19 19:00 109 23 110/59 (76) 95 11/07/19 19:00 121/52 11/07/19 18:30 104 21 121/83 (96) 94 11/07/19 18:00 96 18 111/64 (80) 94 11/07/19 18:00 116/46 11/07/19 17:30 99 20 111/64 (80) 94 11/07/19 17:00 86/45 11/07/19 17:00 85 18 86/45 (59) 98 11/07/19 16:42 101/52 11/07/19 16:30 89 19 101/52 (68) 98 11/07/19 16:30 101/52 11/07/19 16:00 98.7 11/07/19 16:00 Mechanical Ventilator 11/07/19 16:00 92 19 97/52 (67) 100 11/07/19 16:00 90 11/07/19 16:00 97/51 11/07/19 16:00 40 11/07/19 15:30 92 18 94/42 (59) 100 11/07/19 15:15 93 17 40 11/07/19 15:00 91 17 97/48 (64) 100 11/07/19 15:00 97/48 11/07/19 14:30 89 19 96/48 (64) 100 11/07/19 14:00 89 19 94/44 (61) 100 11/07/19 14:00 96/48 11/07/19 13:30 92 20 99/68 (78) 100 11/07/19 13:00 90 18 93/48 (63) 100 6/3/20 13:00 93/48 11/07/19 12:30 92 18 118/58 (78) 100 11/07/19 12:00 40 11/07/19 12:00 Mechanical Ventilator 11/07/19 12:00 87 11/07/19 12:00 128/50 11/07/19 12:00 98.8 88 18 128/50 (76) 100 11/07/19 11:30 88 18 119/51 (73) 100 11/07/19 11:24 83 19 40 11/07/19 11:00 118/50 11/07/19 11:00 87 17 118/50 (72) 100 11/07/19 10:45 86 17 122/50 (74) 100 11/07/19 10:30 85 18 117/46 (69) 100 11/07/19 10:15 85 17 100/47 (64) 100 11/07/19 10:00 117/46 11/07/19 10:00 86 18 119/55 (76) 100 11/07/19 09:45 88 18 120/50 (73) 11/07/19 09:30 87 17 116/42 (66) 100 11/07/19 09:00 89 17 125/52 (76) 100 11/07/19 09:00 125/52 11/07/19 08:30 98.4 90 17 123/52 (75) 100 11/07/19 08:30 123/52 11/07/19 08:00 40 11/07/19 08:00 Mechanical Ventilator 11/07/19 08:00 119/51 11/07/19 08:00 94 15 119/51 (73) 100 11/07/19 08:00 88 11/07/19 07:40 94 20 40 11/07/19 07:30 94 19 130/44 (72) 11/07/19 07:00 93 20 146/132 (137) 100 11/07/19 06:30 97 23 109/71 (84) 100 11/07/19 06:00 99.6 103 21 117/64 (81) 100 11/07/19 06:00 117/64 11/07/19 05:47 135/46 11/07/19 05:30 102 24 135/46 (75) 96 11/07/19 05:00 103 24 125/99 (108) 100 11/07/19 05:00 125/99 11/07/19 04:30 98 21 128/53 (78) 98 11/07/19 04:00 101.4 98 20 114/61 (78) 98 11/07/19 04:00 40 11/07/19 04:00 101.4 11/07/19 04:00 114/61 11/07/19 04:00 Mechanical Ventilator 11/07/19 03:30 95 18 138/48 (78) 99 11/07/19 03:26 94 11/07/19 03:17 102 21 40 11/07/19 03:00 92 18 120/51 (74) 98 11/07/19 03:00 120/51 11/07/19 02:30 92 17 128/45 (72) 98 11/07/19 02:00 147/50 11/07/19 02:00 96 17 147/50 (82) 100 11/07/19 01:30 91 17 140/45 (76) 98 11/07/19 01:00 89 16 138/51 (80) 98 11/07/19 01:00 138/51 11/07/19 00:30 99.6 95 18 143/55 (84) 99 11/07/19 00:00 94 11/07/19 00:00 Mechanical Ventilator 11/07/19 00:00 94 18 140/59 (86) 99 11/07/19 00:00 140/59 11/07/19 00:00 40 11/06/19 23:53 94 17 40 11/06/19 23:30 88 17 150/54 (86) 100 11/06/19 23:00 88 17 139/50 (79) 98 11/06/19 23:00 139/50 11/06/19 22:30 91 18 152/55 (87) 98 11/06/19 22:16 132/52 11/06/19 22:00 87 16 132/52 (78) 100 11/06/19 21:30 89 17 134/59 (84) 99 I&O Intake and Output 11/06/19 11/07/19 19:00 07:00 Intake Total 1918.745 ml 2128.75 ml Output Total 155 ml 205 ml Balance 1763.745 ml 1923.75 ml IV Total 1918.745 ml 2078.75 ml Other 50 ml Output Urine Total 155 ml 205 ml Dressing: dry Wound: other Drains: other Cardiovascular: RSR Respiratory: decreased breath sounds Abdomen: soft, present bowel sounds, non-distended Extremities: cyanosis, other Laboratory Tests Test 11/07/19 04:00 11/07/19 04:40 11/07/19 05:50 11/07/19 11:00 Troponin I 0.165 ng/mL (0.000-0.056) 0.144 ng/mL (0.000-0.056) White Blood Count 5.1 K/UL (4.8-10.8) Red Blood Count 2.77 M/UL (4.70-6.10) L Hemoglobin 7.9 G/DL (14.2-18.0) L Hematocrit 23.6 % (42.0-52.0) L Mean Corpuscular Volume 85 FL (80-99) Mean Corpuscular Hemoglobin 28.6 PG (27.0-31.0) Mean Corpuscular Hemoglobin Concent 33.6 G/DL (32.0-36.0) Red Cell Distribution Width 13.8 % (11.6-14.8) Platelet Count 65 K/UL (150-450) L Mean Platelet Volume 7.2 FL (6.5-10.1) Neutrophils (%) (Auto) % (45.0-75.0) Lymphocytes (%) (Auto) % (20.0-45.0) Monocytes (%) (Auto) % (1.0-10.0) Eosinophils (%) (Auto) % (0.0-3.0) Basophils (%) (Auto) % (0.0-2.0) Differential Total Cells Counted 100 Neutrophils % (Manual) 74 % (45-75) Lymphocytes % (Manual) 6 % (20-45) L Monocytes % (Manual) 3 % (1-10) Eosinophils % (Manual) 1 % (0-3) Basophils % (Manual) 0 % (0-2) Band Neutrophils 16 % (0-8) H Platelet Estimate Decreased L Platelet Morphology Normal Hypochromasia 1+ Anisocytosis 1+ Schistocytes Rare Sodium Level 135 MMOL/L (136-145) L Potassium Level 3.4 MMOL/L (3.5-5.1) L Chloride Level 99 MMOL/L (98-107) Carbon Dioxide Level 29 MMOL/L (21-32) Anion Gap 8 mmol/L (5-15) Blood Urea Nitrogen 48 mg/dL (7-18) H Creatinine 2.7 MG/DL (0.55-1.30) H Estimat Glomerular Filtration Rate 28.0 mL/min (>60) Glucose Level 75 MG/DL (74-106) Hemoglobin A1c 7.2 % (4.3-6.0) H Uric Acid 5.5 MG/DL (2.6-7.2) Calcium Level 7.1 MG/DL (8.5-10.1) L Phosphorus Level 2.7 MG/DL (2.5-4.9) Magnesium Level 1.3 MG/DL (1.8-2.4) L Iron Level 18 ug/dL (50-175) L Total Iron Binding Capacity 62 ug/dL (250-450) L Percent Iron Saturation 29 % (15-50) Unsaturated Iron Binding 44 ug/dL (112-346) L Ferritin 1308 NG/ML (8-388) H Total Bilirubin 2.6 MG/DL (0.2-1.0) H Direct Bilirubin 2.2 MG/DL (0.0-0.3) H Gamma Glutamyl Transpeptidase 81 U/L (5-85) Aspartate Amino Transf (AST/SGOT) 33 U/L (15-37) Alanine Aminotransferase (ALT/SGPT) 17 U/L (12-78) Alkaline Phosphatase 113 U/L (46-116) Total Creatine Kinase 28 U/L (26-308) C-Reactive Protein, Quantitative 19.0 mg/dL (0.00-0.90) H Pro-B-Type Natriuretic Peptide > 59679 pg/mL (0-125) H Total Protein 4.6 G/DL (6.4-8.2) L Albumin 1.1 G/DL (3.4-5.0) L Globulin 3.5 g/dL Albumin/Globulin Ratio 0.3 (1.0-2.7) L Vitamin B12 Level > 2000 PG/ML (193-986) H Folate 9.6 NG/ML (8.6-58.9) Cortisol AM Sample 53.5 UG/DL Random Vancomycin Level 12.9 ug/mL Urine Eosinophils None seen (NONE SEEN) Test 11/07/19 11:10 Lactic Acid Level 1.80 mmol/L (0.4-2.0) Hepatitis A IgM Antibody Pending Hepatitis B Surface Antigen Pending Hepatitis B Core IgM Antibody Pending Hepatitis C Antibody Pending HIV (1&2) Antibody Rapid Negative (NEGATIVE) Plan Problems: (1) Cardiac arrest (2) Suspected 2019 novel coronavirus infection Assessment & Plan: Bilateral diffuse alveolar densities likely pulmonary edema. Superimposed infiltrates cannot be excluded. Bilateral effusions right greater than left. (3) Urinary tract infection (4) Atrial fibrillation with RVR (5) HCAP (healthcare-associated pneumonia) (6) Septic shock Assessment & Plan: 74M cardiac arrest currently intubated in ICU cxr noted labs reviewed LE necrosis dry gangrene no active superimposed infection noted no drainage right groin line okay trend labs will follow with recs thank you DAILY ESTIMATED NEEDS: Needs based on Critical care, wounds, 79.4kg 22-30 kcals/kg 4726-1291 total kcals 1.25-2 g protein/kg 99-159 g total protein 25-30 mL/kg 7324-3399 total fluid mLs NUTRITION DIAGNOSIS: Swallowing difficulty r/t resp status as evidenced by s/p code blue, now intubated, OGT in place, NPO. (CURRENT DIET: NPO) ENTERAL NUTRITION RECOMMENDATIONS: VITAL 1.2 goal of 65ml/hr x24 hrs to provide 1560ml, 1872 kcal, 117g pro, 1265ml free H2O - As medically able w/ stability rec to initiate OGT feeds of Vital 1.2. - Start @25ml/hr for 6 hrs, advance as tolerated 10ml/hr q4-6 hrs to goal. - Flush per , HOB over 30 degrees ADDITIONAL RECOMMENDATIONS: 1) F/up w/ WC eval; pt currently NPO, unable to provide modulars 2) Maintain calibrated bed scale wts 3) replete lytes as needed (K 3.4), check daily 4) NISS w/ accuchecks for glycemic control. 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 Dry Gangrene and multiple pressure injuries. All 10 digits of both R and L hands are necrotic and leathery. No odor noted. Necrotic area noted to dorsal R hand. Wound is malodorous. No exudate noted. Loose dry necrotic area with surrounding hyperpigmentation lateral R knee. Wound inferior to R knee that is 100% necrotic and dry with semidetached borders. NO odor or exudate noted. R heel,lateral R malleolus, Dorso/plantar R foot including all 5 metatarsals are necrotic,dry and leathery. Wounds are malodorous.No exudate noted. Two dry necrotic ulcers noted to posterior Upper L thigh(#1) most medial posterior L thigh -Base of wound is necrotic with surrounding fibrinous slough along borders. No door noted. (#2) In close Proximity to above wound is dry necrotic ulcer with surrounding dry ,black borders. No odor noted. Medial L Tibia, L Heel , Dorso/Plantar L foot including all 5 metatarsals are necrotic, leathery and dry.Wound are malodorous. Full thickness pressure injury Lumbar/Sacral area.(L)8.5cm x (W)2.7cm. Base of wound is miguelito with Scattered slough . Bone is palpable. edges are moist ,pink and adherent to base of wound .Periwound is maroon in colour. Small amt serous exudate noted. No elevation in skin temp periwound. Full thickness pressure injury Sacrococcygeal area.(L)8.8cm x (W)8cm x (D) 1.7cm. Base of wound is 60%beefy red, 40% necrotic at center base of wound Bone is palpable. Edges are macerated with surrounding black and maroon borders that are fluctuant. Wound is malodorous. Small amt serous exudate noted. Additional shearing with maroon discoloration noted to R and L clefts of buttocks,R and L ischium. Partial thickness pressure injury lower L buttocks. Base of wound is moist and viable(L)0.8cm x (W)2.2cm.Periwound is maroon and indurated. Tx.Plan: Apply Betadine to both hands.Wrap R hand loosely with Kerlix Gauze. Cleanse wounds Lumbar -sacral and sacral area with Saline. Apply Therahoney. Apply Moisture Barrier periwound. Cover each wound with Optifoam drsg. Change Daily and prn. Apply Moisture Barrier Paste to Clefts of buttocks, R and L ischium, and scrotum with each Incontinence care. Apply Betadine asa to wounds R lower ext and R foot Daily. Cover R foot with ABD pads and wrap loosely with Kerlix every 3 days and prn. Apply Betadine asa to L lower ext and L foot wounds. Cover L foot wounds with ABD Pads .Wrap loosely with Kerlix every 3 days and prn. Reposition at least every 2hours or as tolerated. Off-load heels with Pillow. Air Fluidized Mattress. (12) Alzheimer disease Bradley Vazquez Nov 07, 2019 21:18
[2019-11-08] VITALS (82 sets, daily range): BP systolic 40–177; BP diastolic 26–156
[2019-11-08] MEDS: Meropenem 1 GM in NS 55 ML IVPB SCH ×2 (01:18→14:02)
[2019-11-08] MEDS: D5NS 1,000 ML IV SCH ×2 (02:38→14:02)
[2019-11-08 04:42] LABS: HEMATOCRIT 25.4 % (42.0-52.0); HEMOGLOBIN 8.4 G/DL (14.2-18.0); MEAN CORPUSCULAR VOLUME 84 FL (80-99); PLATELET COUNT 37 K/UL (150-450); RED BLOOD COUNT 3.01 M/UL (4.70-6.10); WHITE BLOOD COUNT 5.6 K/UL (4.8-10.8)
[2019-11-08 05:29] LABS: ALANINE AMINOTRANSFERASE 24 U/L (12-78); ALBUMIN 1.3 G/DL (3.4-5.0); ALBUMIN/GLOBULIN RATIO 0.4 (1.0-2.7); ALKALINE PHOSPHATASE 105 U/L (46-116); ANION GAP 10 mmol/L (5-15); ASPARTATE AMINO TRANSFERASE 33 U/L (15-37); BILIRUBIN,TOTAL 4.3 MG/DL (0.2-1.0); BLOOD UREA NITROGEN 51 mg/dL (7-18); CALCIUM 7.1 MG/DL (8.5-10.1); CARBON DIOXIDE 25 MMOL/L (21-32); CHLORIDE 98 MMOL/L (98-107); CREATININE 3.1 MG/DL (0.55-1.30); PHOSPHORUS 2.7 MG/DL (2.5-4.9); POTASSIUM 3.6 MMOL/L (3.5-5.1); SODIUM 133 MMOL/L (136-145)
[2019-11-08 05:44] LABS: BILIRUBIN,DIRECT 3.9 MG/DL (0.0-0.3)
[2019-11-08] MEDS: Pantoprazole Inj IV SCH ×2 (07:48→20:24)
--- NOTE | 2019-11-08 08:45 | Progress Note ---
DATE: 11/06/2019 SUBJECTIVE: The patient's condition remained critical. He is intubated, on Levophed drip of 40 mcg/min. PHYSICAL EXAMINATION: VITAL SIGNS: Blood pressure 87/44, pulse 99, respirations 20, and temperature 99.8. HEENT: Eyes were normal. ENT, mucous membranes were moist and intact. NECK: Supple with no JVD without lymph nodes. LUNGS: Bilateral rhonchi at both bases. HEART: Normal sounds with regular beats. There is tachycardia at rest. Sinus tachycardia on monitor. ABDOMEN: Soft, nontender with normal bowel sounds. Gastrostomy site is clean. EXTREMITIES: Warm without cyanosis, clubbing, or edema. LABORATORY AND DIAGNOSTIC DATA: Hemoglobin 9.2, hematocrit 27.3 with MCV of 86, WBC of 5.2, and platelets 88. His BUN and creatinine are 42 and 2.3 respectively. His sodium is 132, potassium 3.4, chloride 95, CO2 32, his glucose is 97. Troponin 0.098, it was 0.066 yesterday. His proBNP is 35,000. Urine grew gram-negative bacilli. Chest x-ray yesterday, bilateral extensive lung infiltrates compatible with multifocal pneumonia or pulmonary edema. There is right and left pleural effusion with possible atelectasis. atelectasis as well. IMPRESSION: Patient has been seen by the [facility] source operations specialist and Infectious Diseases for pancytopenia. His produced red cells, white cells, and platelets in addition to the infectious and the congestive heart failure . Repeat laboratory tests will be done in the a.m. including chest x-ray. Zenon Bradley M.D. DR: BUDDY JOB#: [id number] CC:
[2019-11-08] MEDS: Heparin 5000 units/ml inj SUBQ SCH (09:00)
--- NOTE | 2019-11-08 09:27 | Nephrology Progress Note ---
Assessment/Plan Problem List: (1) MANUEL (acute kidney injury) Assessment: Serum creatinine rising (2) Renal failure (ARF), acute on chronic (3) Septic shock (4) Respiratory failure requiring intubation (5) DMII (diabetes mellitus, type 2) Assessment: Hemoglobin A1c 7.2 Assessment Renal failure, mainly acute, most likely secondary to septic shock Possible underlying chronic renal failure Acute respiratory failure requiring intubation Healthcare associated pneumonia Atrial fibrillation with fast ventricular rate History of CHF Pleural effusion Suspected coronavirus 19 infection Dementia/Alzheimer's History of CVA History of COPD Dry gangrene of the lower extremities Severe hypoalbuminemia Plan November 07: Patient condition is deteriorating. Remains on pressors. Serum creatinine is rising. Bilirubin is rising. Blood culture positive gram- negative's. Will give albumin bolus. Start on midodrine for blood pressure support. Patient is DNR. Overall overall prognosis poor. Discussed with RN Due for 1 unit of packed RBC transfusion per Dr. Mansfield change IV to D5 normal saline 75 cc an hour Mag sulfate supplements intravenously today avoid nephrotoxic's Slow hydration watch for CHF symptoms Pulmonary support Monitor renal parameters, as serum creatinine is rising Urine studies Per consultants Subjective ROS Limited/Unobtainable: Yes Objective Objective Last 24 Hour Vital Signs Date Time Temp Pulse Resp B/P (MAP) Pulse Ox O2 Delivery O2 Flow Rate FiO2 11/08/19 08:30 109 23 87/41 (56) 89 11/08/19 08:30 87/41 11/08/19 08:00 Mechanical Ventilator 11/08/19 08:00 102.0 108 22 85/47 (60) 92 11/08/19 08:00 50 11/08/19 08:00 85/47 11/08/19 08:00 109 11/08/19 07:49 114/62 11/08/19 07:30 108 22 114/57 (76) 92 11/08/19 07:29 105 22 50 11/08/19 07:00 106 22 92/40 (57) 93 11/08/19 07:00 92/40 11/08/19 06:33 109 22 91/52 (65) 91 11/08/19 06:30 108 20 74/58 (63) 91 11/08/19 06:15 108 21 104/49 (67) 91 11/08/19 06:00 87/71 11/08/19 06:00 107 21 87/71 (76) 92 11/08/19 05:33 102 19 86/41 (56) 91 11/08/19 05:30 103 19 83/43 (56) 91 11/08/19 05:15 106 21 98/44 (62) 94 11/08/19 05:05 111 22 124/56 (78) 94 11/08/19 05:00 109 21 113/98 (103) 94 11/08/19 05:00 113/98 11/08/19 04:53 106 19 109/42 (64) 92 11/08/19 04:50 106 21 74/43 (53) 96 11/08/19 04:45 105 20 81/41 (54) 94 11/08/19 04:39 104 20 80/42 (55) 92 11/08/19 04:30 107 21 80/42 (55) 97 11/08/19 04:30 80/42 11/08/19 04:15 112 20 83/52 (62) 94 11/08/19 04:00 Mechanical Ventilator 11/08/19 04:00 84/36 11/08/19 04:00 50 11/08/19 04:00 99.3 107 21 84/36 (52) 98 11/08/19 03:57 108 23 110/35 (60) 91 11/08/19 03:45 107 22 87/44 (58) 94 11/08/19 03:33 109 11/08/19 03:30 104 21 50 11/08/19 03:30 106 21 105/64 (78) 94 11/08/19 03:15 102 21 83/43 (56) 94 11/08/19 03:00 103 20 71/43 (52) 97 11/08/19 03:00 71/43 11/08/19 02:50 104 22 87/58 (68) 94 11/08/19 02:45 104 20 86/43 (57) 100 11/08/19 02:45 86/43 11/08/19 02:30 109 20 95/54 (68) 95 11/08/19 02:15 103 19 118/90 (99) 93 11/08/19 02:00 100.0 110 22 108/73 (85) 100 11/08/19 02:00 108/73 11/08/19 01:45 110 21 91/35 (53) 98 11/08/19 01:30 108 20 156/137 (143) 99 11/08/19 01:19 125/55 11/08/19 01:00 109 19 113/61 (78) 99 11/08/19 01:00 113/61 11/08/19 00:47 101.0 11/08/19 00:30 110 17 85/70 (75) 98 11/08/19 00:00 Mechanical Ventilator 11/08/19 00:00 101.4 110 17 112/50 (70) 93 11/08/19 00:00 50 11/08/19 00:00 112/50 11/07/19 23:42 106 11/07/19 23:30 106 24 50 11/07/19 23:30 105 18 129/56 (80) 100 11/07/19 23:00 113/59 11/07/19 23:00 104 18 113/59 (77) 100 11/07/19 22:30 101 17 121/64 (83) 100 11/07/19 22:00 100 16 105/51 (69) 100 11/07/19 22:00 105/51 11/07/19 21:30 98 16 119/70 (86) 100 11/07/19 21:15 99 16 105/58 (74) 100 11/07/19 21:05 100 11/07/19 21:00 103 19 131/48 (75) 87 11/07/19 21:00 131/48 11/07/19 20:30 102 17 91/48 (62) 93 11/07/19 20:00 99.9 106 20 115/63 (80) 93 11/07/19 20:00 Mechanical Ventilator 11/07/19 20:00 115/63 11/07/19 20:00 40 11/07/19 19:45 110 21 120/59 (79) 94 11/07/19 19:30 108 16 40 11/07/19 19:30 108 21 120/52 (74) 87 11/07/19 19:23 109 11/07/19 19:00 109 23 110/59 (76) 95 11/07/19 19:00 121/52 11/07/19 18:30 104 21 121/83 (96) 94 11/07/19 18:00 96 18 111/64 (80) 94 11/07/19 18:00 116/46 11/07/19 17:30 99 20 111/64 (80) 94 11/07/19 17:00 86/45 11/07/19 17:00 85 18 86/45 (59) 98 11/07/19 16:42 101/52 11/07/19 16:30 89 19 101/52 (68) 98 11/07/19 16:30 101/52 11/07/19 16:00 98.7 11/07/19 16:00 Mechanical Ventilator 11/07/19 16:00 92 19 97/52 (67) 100 11/07/19 16:00 90 11/07/19 16:00 97/51 11/07/19 16:00 40 11/07/19 15:30 92 18 94/42 (59) 100 11/07/19 15:15 93 17 40 11/07/19 15:00 91 17 97/48 (64) 100 11/07/19 15:00 97/48 11/07/19 14:30 89 19 96/48 (64) 100 11/07/19 14:00 89 19 94/44 (61) 100 11/07/19 14:00 96/48 11/07/19 13:30 92 20 99/68 (78) 100 11/07/19 13:00 90 18 93/48 (63) 100 11/07/19 13:00 93/48 11/07/19 12:30 92 18 118/58 (78) 100 11/07/19 12:00 40 11/07/19 12:00 Mechanical Ventilator 11/07/19 12:00 87 11/07/19 12:00 128/50 11/07/19 12:00 98.8 88 18 128/50 (76) 100 11/07/19 11:30 88 18 119/51 (73) 100 11/07/19 11:24 83 19 40 11/07/19 11:00 118/50 11/07/19 11:00 87 17 118/50 (72) 100 11/07/19 10:45 86 17 122/50 (74) 100 11/07/19 10:30 85 18 117/46 (69) 100 11/07/19 10:15 85 17 100/47 (64) 100 11/07/19 10:00 117/46 11/07/19 10:00 86 18 119/55 (76) 100 11/07/19 09:45 88 18 120/50 (73) 11/07/19 09:30 87 17 116/42 (66) 100 Intake and Output 11/07/19 11/08/19 19:00 07:00 Intake Total 2299.375 ml 1660.55 ml Output Total 215 ml 260 ml Balance 2084.375 ml 1400.55 ml IV Total 2299.375 ml 1375.55 ml Tube Feeding 175 ml Other 110 ml Output Urine Total 215 ml 260 ml # Bowel Movements 1 2 Laboratory Tests 11/07/19 11:00: Troponin I 0.144H 11/07/19 11:10: Lactic Acid Level 1.80, Hepatitis A IgM Antibody Negative, Hepatitis B Surface Antigen Negative, Hepatitis B Core IgM Antibody Negative, Hepatitis C Antibody < 0.1, HIV (1&2) Antibody Rapid Negative 11/08/19 02:30: Urine Eosinophils None seen 11/08/19 04:00: Troponin I 0.142H, Lactic Acid Level 4.30H, White Blood Count 5.6, Red Blood Count 3.01L, Hemoglobin 8.4L, Hematocrit 25.4L, Mean Corpuscular Volume 84, Mean Corpuscular Hemoglobin 28.0, Mean Corpuscular Hemoglobin Concent 33.2, Red Cell Distribution Width 15.0H, Platelet Count 37L, Mean Platelet Volume 9.3, Neutrophils (%) (Auto) , Lymphocytes (%) (Auto) , Monocytes (%) (Auto) , Eosinophils (%) (Auto) , Basophils (%) (Auto) , Differential Total Cells Counted 100, Neutrophils % (Manual) 77H, Lymphocytes % (Manual) 5L, Monocytes % (Manual) 4, Eosinophils % (Manual) 3, Basophils % (Manual) 0, Band Neutrophils 11H, Platelet Estimate DecreasedL, Platelet Morphology Normal, Hypochromasia 1+ , Anisocytosis 1+, Sodium Level 133L, Potassium Level 3.6, Chloride Level 98, Carbon Dioxide Level 25, Anion Gap 10, Blood Urea Nitrogen 51H, Creatinine 3.1H , Estimat Glomerular Filtration Rate 23.9, Glucose Level 125H, Uric Acid 5.4, Calcium Level 7.1L, Phosphorus Level 2.7, Magnesium Level 1.9, Total Bilirubin 4.3H, Direct Bilirubin 3.9H, Aspartate Amino Transf (AST/SGOT) 33, Alanine Aminotransferase (ALT/SGPT) 24, Alkaline Phosphatase 105, Ammonia 62H, C- Reactive Protein, Quantitative 20.7H, Pro-B-Type Natriuretic Peptide > 69004N, Total Protein 4.7L, Albumin 1.3L, Globulin 3.4, Albumin/Globulin Ratio 0.4L, Thyroid Stimulating Hormone (TSH) 2.052 11/08/19 06:40: Lactic Acid Level 4.80H 11/08/19 07:30: Arterial Blood pH 7.425, Arterial Blood Partial Pressure CO2 36.6, Arterial Blood Partial Pressure O2 45.5*L, Arterial Blood HCO3 23.5, Arterial Blood Oxygen Saturation 81.4*L, Arterial Blood Base Excess -0.7, Manny Test Positive Height (Feet): 5 Height (Inches): 11.00 Weight (Pounds): 193 General Appearance: no apparent distress, lethargic EENT: other - Intubated on ventilator Cardiovascular: tachycardia Respiratory/Chest: decreased breath sounds Abdomen: distended Ivan Tellez MD Nov 08, 2019 09:27
--- NOTE | 2019-11-08 09:34 | Diagnostic Imaging Report ---
Indication: Dyspnea Technique: One view of the chest Comparison: 11/07/2019 Findings: The heart is enlarged. Bilateral and extensive infiltrates as is edema and right-sided pleural effusion are again demonstrated. Stable satisfactory positions of endotracheal and orogastric tubes. Impression: Unchanged, over one day, findings as above.
--- NOTE | 2019-11-08 10:55 | Pulmonolgy Critical Care Note ---
Critical Care - Asmt/Plan Problems: (1) Respiratory failure requiring intubation (2) Septic shock (3) Cardiac arrest (4) Anemia (5) Atrial fibrillation with RVR (6) Suspected 2019 novel coronavirus infection (7) Dry gangrene (8) Alzheimer disease (9) COPD (chronic obstructive pulmonary disease) (10) Cerebrovascular accident (CVA) Respiratory: monitor respiratory rate, adjust FIO2, CXR Cardiac: continue pressors, continue to monitor HR/BP Renal: F/U I&O, keep IV fluid, check electrolytes Infectious Disease: check cultures, continue antibiotics Gastrointestinal: continue feedings/current rate Endocrine: monitor blood sugar Hematologic: monitor H/H, transfuse if hgb<8.5 Neurologic: PRN Ativan, keep patient comfortable Affect: PRN ativan Prophylaxis: Protonix 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, 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, 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 Discussed with: nurses, consultants, 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 - Objective Last 24 Hour Vital Signs Date Time Temp Pulse Resp B/P (MAP) Pulse Ox O2 Delivery O2 Flow Rate FiO2 11/08/19 10:30 108 24 90/44 (59) 95 11/08/19 10:00 112 23 93/41 (58) 98 11/08/19 09:59 101.3 11/08/19 09:30 110 24 114/65 (81) 92 11/08/19 09:00 111 24 93/66 (75) 93 11/08/19 08:30 109 23 87/41 (56) 89 11/08/19 08:30 87/41 11/08/19 08:00 Mechanical Ventilator 11/08/19 08:00 102.0 108 22 85/47 (60) 92 11/08/19 08:00 50 11/08/19 08:00 85/47 11/08/19 08:00 109 11/08/19 07:49 114/62 11/08/19 07:30 108 22 114/57 (76) 92 11/08/19 07:29 105 22 50 11/08/19 07:00 106 22 92/40 (57) 93 11/08/19 07:00 92/40 11/08/19 06:33 109 22 91/52 (65) 91 11/08/19 06:30 108 20 74/58 (63) 91 11/08/19 06:15 108 21 104/49 (67) 91 11/08/19 06:00 87/71 11/08/19 06:00 107 21 87/71 (76) 92 11/08/19 05:33 102 19 86/41 (56) 91 11/08/19 05:30 103 19 83/43 (56) 91 11/08/19 05:15 106 21 98/44 (62) 94 11/08/19 05:05 111 22 124/56 (78) 94 11/08/19 05:00 109 21 113/98 (103) 94 11/08/19 05:00 113/98 11/08/19 04:53 106 19 109/42 (64) 92 11/08/19 04:50 106 21 74/43 (53) 96 11/08/19 04:45 105 20 81/41 (54) 94 11/08/19 04:39 104 20 80/42 (55) 92 11/08/19 04:30 107 21 80/42 (55) 97 11/08/19 04:30 80/42 11/08/19 04:15 112 20 83/52 (62) 94 11/08/19 04:00 Mechanical Ventilator 11/08/19 04:00 84/36 11/08/19 04:00 50 11/08/19 04:00 99.3 107 21 84/36 (52) 98 11/08/19 03:57 108 23 110/35 (60) 91 11/08/19 03:45 107 22 87/44 (58) 94 11/08/19 03:33 109 11/08/19 03:30 104 21 50 11/08/19 03:30 106 21 105/64 (78) 94 11/08/19 03:15 102 21 83/43 (56) 94 11/08/19 03:00 103 20 71/43 (52) 97 11/08/19 03:00 71/43 11/08/19 02:50 104 22 87/58 (68) 94 11/08/19 02:45 104 20 86/43 (57) 100 11/08/19 02:45 86/43 11/08/19 02:30 109 20 95/54 (68) 95 11/08/19 02:15 103 19 118/90 (99) 93 11/08/19 02:00 100.0 110 22 108/73 (85) 100 11/08/19 02:00 108/73 11/08/19 01:45 110 21 91/35 (53) 98 11/08/19 01:30 108 20 156/137 (143) 99 11/08/19 01:19 125/55 11/08/19 01:00 109 19 113/61 (78) 99 11/08/19 01:00 113/61 11/08/19 00:30 110 17 85/70 (75) 98 11/08/19 00:00 Mechanical Ventilator 11/08/19 00:00 101.4 110 17 112/50 (70) 93 11/08/19 00:00 50 11/08/19 00:00 112/50 11/07/19 23:42 106 11/07/19 23:30 106 24 50 11/07/19 23:30 105 18 129/56 (80) 100 11/07/19 23:00 113/59 11/07/19 23:00 104 18 113/59 (77) 100 11/07/19 22:30 101 17 121/64 (83) 100 11/07/19 22:00 100 16 105/51 (69) 100 11/07/19 22:00 105/51 11/07/19 21:30 98 16 119/70 (86) 100 11/07/19 21:15 99 16 105/58 (74) 100 11/07/19 21:05 100 11/07/19 21:00 103 19 131/48 (75) 87 11/07/19 21:00 131/48 11/07/19 20:30 102 17 91/48 (62) 93 11/07/19 20:00 99.9 106 20 115/63 (80) 93 11/07/19 20:00 Mechanical Ventilator 11/07/19 20:00 115/63 11/07/19 20:00 40 11/07/19 19:45 110 21 120/59 (79) 94 11/07/19 19:30 108 16 40 11/07/19 19:30 108 21 120/52 (74) 87 11/07/19 19:23 109 11/07/19 19:00 109 23 110/59 (76) 95 11/07/19 19:00 121/52 11/07/19 18:30 104 21 121/83 (96) 94 11/07/19 18:00 96 18 111/64 (80) 94 11/07/19 18:00 116/46 11/07/19 17:30 99 20 111/64 (80) 94 11/07/19 17:00 86/45 11/07/19 17:00 85 18 86/45 (59) 98 11/07/19 16:42 101/52 11/07/19 16:30 89 19 101/52 (68) 98 11/07/19 16:30 101/52 11/07/19 16:00 98.7 11/07/19 16:00 Mechanical Ventilator 11/07/19 16:00 92 19 97/52 (67) 100 11/07/19 16:00 90 11/07/19 16:00 97/51 11/07/19 16:00 40 11/07/19 15:30 92 18 94/42 (59) 100 11/07/19 15:15 93 17 40 11/07/19 15:00 91 17 97/48 (64) 100 11/07/19 15:00 97/48 11/07/19 14:30 89 19 96/48 (64) 100 11/07/19 14:00 89 19 94/44 (61) 100 11/07/19 14:00 96/48 11/07/19 13:30 92 20 99/68 (78) 100 11/07/19 13:00 90 18 93/48 (63) 100 11/07/19 13:00 93/48 11/07/19 12:30 92 18 118/58 (78) 100 11/07/19 12:00 40 11/07/19 12:00 Mechanical Ventilator 11/07/19 12:00 87 11/07/19 12:00 128/50 11/07/19 12:00 98.8 88 18 128/50 (76) 100 11/07/19 11:30 88 18 119/51 (73) 100 11/07/19 11:24 83 19 40 11/07/19 11:00 118/50 11/07/19 11:00 87 17 118/50 (72) 100 Status: awake Condition: critical HEENT: atraumatic, normocephalic Neck: full ROM Lungs: clear Heart: HR/BP stable Abdomen: soft, non-tender Extremities: no C/C/E Decubiti: location Micro: Microbiology Date/Time Source Procedure Growth Status 11/06/19 14:15 Blood Blood Culture - Preliminary Gram Negative Bacillus 1 Resulted 11/06/19 14:05 Blood Blood Culture - Preliminary Gram Negative Bacillus 1 Resulted 11/05/19 16:20 Blood Blood Culture - Final Escherichia Coli Complete 11/05/19 16:10 Blood Blood Culture - Final Escherichia Coli Complete 11/06/19 13:55 Sputum Gram Stain - Final Resulted 11/06/19 13:55 Sputum Culture - Preliminary Acinetobacter Baumannii Complx Gram Negative Bacillus 2 Resulted 11/05/19 22:00 Nasopharynx Coronavirus COVID-19 PCR ([facility]) - Final Complete 11/05/19 15:48 Urine,Clean Catch Urine Culture - Final Escherichia Coli Complete 11/05/19 15:45 Rectum - Final NO CARBAPENEM-RESISTANT ENTEROBACTERI... Complete 11/05/19 15:45 Rectum VRE Culture - Final Enterococcus Faecalis - Vre Complete Accucheck: 120 Critical Care - Subjective ROS Limited/Unobtainable: Yes Condition: critical EKG Rhythm: Sinus Rhythm FI02: 50 Vent Support Breath Rate: 16 Vent Support Mode: AC Vent Tidal Volume: 600 Sputum Amount: Scant PEEP: 0.0 PIP: 20 Tube Feeding Amount: 25 I&O: Intake and Output 11/07/19 11/08/19 19:00 07:00 Intake Total 2299.375 ml 1660.55 ml Output Total 215 ml 260 ml Balance 2084.375 ml 1400.55 ml IV Total 2299.375 ml 1375.55 ml Tube Feeding 175 ml Other 110 ml Output Urine Total 215 ml 260 ml # Bowel Movements 1 2 ET-Tube: 7.5 ET Position: 26 Labs: Laboratory Tests Test 11/07/19 11:00 11/07/19 11:10 11/08/19 02:30 11/08/19 04:00 Troponin I 0.144 ng/mL (0.000-0.056) 0.142 ng/mL (0.000-0.056) Lactic Acid Level 1.80 mmol/L (0.4-2.0) 4.30 mmol/L (0.4-2.0) H Hepatitis A IgM Antibody Negative (Negative) Hepatitis B Surface Antigen Negative (Negative) Hepatitis B Core IgM Antibody Negative (Negative) Hepatitis C Antibody <0.1 s/co ratio HIV (1&2) Antibody Rapid Negative (NEGATIVE) Urine Eosinophils None seen (NONE SEEN) White Blood Count 5.6 K/UL (4.8-10.8) Red Blood Count 3.01 M/UL (4.70-6.10) L Hemoglobin 8.4 G/DL (14.2-18.0) L Hematocrit 25.4 % (42.0-52.0) L Mean Corpuscular Volume 84 FL (80-99) Mean Corpuscular Hemoglobin 28.0 PG (27.0-31.0) Mean Corpuscular Hemoglobin Concent 33.2 G/DL (32.0-36.0) Red Cell Distribution Width 15.0 % (11.6-14.8) H Platelet Count 37 K/UL (150-450) L Mean Platelet Volume 9.3 FL (6.5-10.1) Neutrophils (%) (Auto) % (45.0-75.0) Lymphocytes (%) (Auto) % (20.0-45.0) Monocytes (%) (Auto) % (1.0-10.0) Eosinophils (%) (Auto) % (0.0-3.0) Basophils (%) (Auto) % (0.0-2.0) Differential Total Cells Counted 100 Neutrophils % (Manual) 77 % (45-75) H Lymphocytes % (Manual) 5 % (20-45) L Monocytes % (Manual) 4 % (1-10) Eosinophils % (Manual) 3 % (0-3) Basophils % (Manual) 0 % (0-2) Band Neutrophils 11 % (0-8) H Platelet Estimate Decreased L Platelet Morphology Normal Hypochromasia 1+ Anisocytosis 1+ Sodium Level 133 MMOL/L (136-145) L Potassium Level 3.6 MMOL/L (3.5-5.1) Chloride Level 98 MMOL/L (98-107) Carbon Dioxide Level 25 MMOL/L (21-32) Anion Gap 10 mmol/L (5-15) Blood Urea Nitrogen 51 mg/dL (7-18) H Creatinine 3.1 MG/DL (0.55-1.30) H Estimat Glomerular Filtration Rate 23.9 mL/min (>60) Glucose Level 125 MG/DL (74-106) H Uric Acid 5.4 MG/DL (2.6-7.2) Calcium Level 7.1 MG/DL (8.5-10.1) L Phosphorus Level 2.7 MG/DL (2.5-4.9) Magnesium Level 1.9 MG/DL (1.8-2.4) Total Bilirubin 4.3 MG/DL (0.2-1.0) H Direct Bilirubin 3.9 MG/DL (0.0-0.3) H Aspartate Amino Transf (AST/SGOT) 33 U/L (15-37) Alanine Aminotransferase (ALT/SGPT) 24 U/L (12-78) Alkaline Phosphatase 105 U/L (46-116) Ammonia 62 umol/L (11-32) H C-Reactive Protein, Quantitative 20.7 mg/dL (0.00-0.90) H Pro-B-Type Natriuretic Peptide > 25723 pg/mL (0-125) H Total Protein 4.7 G/DL (6.4-8.2) L Albumin 1.3 G/DL (3.4-5.0) L Globulin 3.4 g/dL Albumin/Globulin Ratio 0.4 (1.0-2.7) L Thyroid Stimulating Hormone (TSH) 2.052 uiU/mL (0.358-3.740) Test 11/08/19 06:40 11/08/19 07:30 11/08/19 10:10 Lactic Acid Level 4.80 mmol/L (0.66-2.22) H 5.50 mmol/L (0.4-2.0) H Arterial Blood pH 7.425 (7.350-7.450) Arterial Blood Partial Pressure CO2 36.6 mmHg (35.0-45.0) Arterial Blood Partial Pressure O2 45.5 mmHg (75.0-100.0) Arterial Blood HCO3 23.5 mmol/L (22.0-26.0) Arterial Blood Oxygen Saturation 81.4 % (95-100) *L Arterial Blood Base Excess -0.7 (-2-2) Manny Test Positive Issa Cabrera MD Nov 08, 2019 10:55
--- NOTE | 2019-11-08 11:45 | Progress Note ---
DATE: 11/07/2019 SUBJECTIVE: The patient has low-grade fever and persistent tachycardia. PHYSICAL EXAMINATION: VITAL SIGNS: Blood pressure 131/48, his pulse is 106, respirations of 20, and temperature of 99.9. HEENT: Eyes were normal. ENT, mucous membranes are moist and intact. NECK: Supple with no JVD without lymph nodes. Tracheostomy site is clean. LUNGS: Clear without rhonchi, rales or wheezes. HEART: Normal sounds with regular beats. There is tachycardia at rest. Sinus tachycardia on monitor. ABDOMEN: Soft and nontender with normal bowel sounds. Gastrostomy site is clean. EXTREMITIES: Warm without cyanosis, clubbing, or edema. LABORATORY AND DIAGNOSTIC DATA: Hemoglobin is 7.9, hematocrit 23.6 with MCV of 85, WBC of 5.1, and platelets 65,000. His BUN and creatinine is 48 and 2.7 respectively. Sodium is 135, potassium 3.4, chloride 99, and CO2 is 29. His lactic acid is 1.8 is 1.3. Iron is 18, total iron binding capacity is 62, but saturation is 29. Troponin 0.144. ____ level is 53. His COVID-19 test by PCR is negative. The patient's blood culture from November__2019 grew gram-negative bacilli on two separate occasions. His chest x-ray today has increased right pleural effusion as well as there is no change in the infiltrate. In general, the patient is moderately improved. Repeat laboratory tests will be done in the a.m. including BMP. Zenon Bradley M.D. DR: YOSELIN JOB#: [id number] CC:
[2019-11-08] MEDS: Midodrine 10mg tab ORAL SCH ×2 (12:05→18:05)
--- NOTE | 2019-11-08 12:45 | Consultation ---
DATE OF CONSULTATION: 11/07/2019 CARDIOLOGY CONSULTATION CONSULTING PHYSICIAN: Andre Brannon MD. REQUESTING PHYSICIAN: Zenon Bradley MD. REASON FOR CONSULTATION: Elevated troponin level and atrial fibrillation with rapid ventricular rate. HISTORY OF PRESENT ILLNESS: This is a 74-year-old male. He was admitted to the hospital two days ago from an extended care facility where he resides. He was noted to have intermittent chest pain and shortness of breath. He became bradycardic, hypotensive and required intubation and mechanical ventilation. Since admission, he has been treated with antimicrobials and placed on isolation for possible COVID-19 infection. Concern has been raised over his low blood pressure, his elevated troponin level, and his rapid atrial fibrillation prompting this consultation. PAST MEDICAL HISTORY: Cerebrovascular disease, COPD, hypertension, paroxysmal atrial fibrillation, congestive heart failure, peripheral artery disease with gangrene. ALLERGIES: None. MEDICATIONS: Reviewed and reconciled. FAMILY HISTORY: Noncontributory. SOCIAL HISTORY: No record of smoking, alcohol, or substance abuse. REVIEW OF SYSTEMS: Not obtainable from the patient at this time and pertinent data is obtained from review of records from a correction facility (20-minute time spent). PHYSICAL EXAMINATION: VITAL SIGNS: Blood pressure 91/48, heart rate 102, respiratory rate 17, afebrile, temperature max 99.9, oxygen saturation 87% to 94%. GENERAL: Orally intubated. Mechanically ventilated. Thin trach secretions. LUNGS: Bilateral rhonchi. CARDIAC: Irregularly irregular rhythm. Normal S1, S2. A 1/6 systolic murmur at base. ABDOMEN: Soft. EXTREMITIES: No edema. LABORATORY AND DIAGNOSTIC DATA: Sodium 135, potassium 3.4, bicarb 29, BUN 48, creatinine 2.7, magnesium 1.3. Troponin 0.144. Pro-natriuretic peptide over 35,000. Albumin 1.1. White count 5.1, hemoglobin 7.9. Chest x-ray today reveals right pleural effusion and bilateral interstitial and airspace disease. An echocardiogram revealed mildly depressed ejection fraction, moderate mitral regurgitation, left ventricular diastolic dysfunction, moderate tricuspid regurgitation, and pulmonary hypertension. IMPRESSION: 1. Respiratory failure. 2. Sepsis with shock. 3. Hypokalemia. 4. Hypomagnesemia. 5. Acute myocardial ischemia and possible non-ST elevation infarction. 6. Acute on chronic diastolic congestive heart failure. 7. Degenerative mitral valve disease with regurgitation. 8. Moderate pulmonary hypertension. 9. Possible COVID-19 pneumonia. 10. Critical and guarded. 11. Atrial fibrillation with rapid ventricular response. 12. Anemia. PLAN: Ventilator support. Volume support. Pressors would taper as able. Replace potassium. Intravenous magnesium. Empiric antimicrobials. Await COVID-19 results. DVT and stress ulcer prophylaxis. Venous duplex scan to assess for possible source of pulmonary emboli. Transfuse for low hemoglobin. Consider beta-diana therapy once blood pressure parameters stabilized. Andre Brannon M.D. DR: KOLBY JOB#: [id number] CC:
[2019-11-08] MEDS ORDERED: Sterile Water Irrig 1000ml IRRIG ONE (14:26)
[2019-11-08] MEDS ORDERED: NS 275ml ONE (14:26)
--- NOTE | 2019-11-08 14:38 | Infectious Diseases Prog Note ---
Assessment/Plan Assessment/Plan Assessment: SP bradycardic cardiac arrest, VDRF 11/04 Septic Shock- pressors requirements increased Pneumonia- r/o COVID19 (resident of [facility] with large outbreak) -11/07 CXR: Bilateral and extensive infiltrates as is edema and right-sided pleural effusion are again demonstrated. -11/06 CXR: Equivocal increased right pleural effusion. Otherwise little casino change attendant 2 days -11/05 sp cx MDR ABC (S Levaquin, gentamycin, Bactrim), GNR #2 -11/04 CXR: Overall similar appearing bilateral extensive lung opacities concerning for multifocal pneumonia and/or pulmonary edema in the proper context. Unchanged moderate right and trace left pleural effusions with passive atelectasis. Unchanged retrocardiac atelectasis or consolidation. SARS-COV2 PCR neg UTI c/w gram negative bacteremia (high grade); persistent bacteremia -11/05 Bcx 09/07 GNR -11/04 u/a wbc 40-60, nit neg, leuk +3; ucx >100k E.coli (price S) Bcx 09/07 E.coli (price S) Fever- persistent No leukocytosis Thrombocytopenia/Lymphopenia B/l forefoot and R hand dry gangrene MANUEL, worsening CHF pleural effusion CVA dysphagia BPH HTN Afib COPD LE dry gangrene NH resident ([facility]) VRE and MRSA colonized Plan: -Dc IV Vancomycin #3 -Cotninue empiric Meropenem #3 pending repeat Sensi GNR in repeat blood cultures and GNR #2 in sputum cx -add PO Levaquin for MDR ABC in sputum -f/u cx -Monitor CBC/CMP, temperature -COVID19 isolation and testing; send 2nd test -f/u Bcx x2, sp cx -aspiration precautions -ETT/ICU care -BCx x2 Thank you for consulting [facility]. Will continue to follow along with you. Subjective Allergies: Coded Allergies: No Known Allergies (Unverified , 11/05/19) Subjective Tm 102 Fio2 increased to 60% no leukocytosis levophed incrased to 24 bacteremic Objective Vital Signs Last 24 Hour Vital Signs Date Time Temp Pulse Resp B/P (MAP) Pulse Ox O2 Delivery O2 Flow Rate FiO2 11/08/19 14:00 109 23 88/40 (56) 96 11/08/19 13:30 104 23 96/51 (66) 92 11/08/19 13:00 104 22 90/40 (57) 92 11/08/19 12:30 106 22 86/43 (57) 93 11/08/19 12:30 86/43 11/08/19 12:15 79/46 11/08/19 12:10 87/32 11/08/19 12:05 82/29 11/08/19 12:00 60 11/08/19 12:00 101.0 108 23 87/32 (50) 96 11/08/19 12:00 111 11/08/19 12:00 Mechanical Ventilator 11/08/19 11:30 108 24 105/80 (88) 94 11/08/19 11:30 105/80 11/08/19 11:00 104 23 89/42 (58) 95 11/08/19 10:49 112 22 60 11/08/19 10:30 108 24 90/44 (59) 95 11/08/19 10:00 112 23 93/41 (58) 98 11/08/19 09:59 101.3 11/08/19 09:30 110 24 114/65 (81) 92 11/08/19 09:00 111 24 93/66 (75) 93 11/08/19 08:30 109 23 87/41 (56) 89 11/08/19 08:30 87/41 11/08/19 08:00 Mechanical Ventilator 11/08/19 08:00 102.0 108 22 85/47 (60) 92 11/08/19 08:00 50 11/08/19 08:00 85/47 11/08/19 08:00 109 11/08/19 07:49 114/62 11/08/19 07:30 108 22 114/57 (76) 92 11/08/19 07:29 105 22 50 11/08/19 07:00 106 22 92/40 (57) 93 11/08/19 07:00 92/40 11/08/19 06:33 109 22 91/52 (65) 91 11/08/19 06:30 108 20 74/58 (63) 91 11/08/19 06:15 108 21 104/49 (67) 91 11/08/19 06:00 87/71 11/08/19 06:00 107 21 87/71 (76) 92 11/08/19 05:33 102 19 86/41 (56) 91 11/08/19 05:30 103 19 83/43 (56) 91 11/08/19 05:15 106 21 98/44 (62) 94 11/08/19 05:05 111 22 124/56 (78) 94 11/08/19 05:00 109 21 113/98 (103) 94 11/08/19 05:00 113/98 11/08/19 04:53 106 19 109/42 (64) 92 11/08/19 04:50 106 21 74/43 (53) 96 11/08/19 04:45 105 20 81/41 (54) 94 11/08/19 04:39 104 20 80/42 (55) 92 11/08/19 04:30 107 21 80/42 (55) 97 11/08/19 04:30 80/42 11/08/19 04:15 112 20 83/52 (62) 94 11/08/19 04:00 Mechanical Ventilator 11/08/19 04:00 84/36 11/08/19 04:00 50 11/08/19 04:00 99.3 107 21 84/36 (52) 98 11/08/19 03:57 108 23 110/35 (60) 91 11/08/19 03:45 107 22 87/44 (58) 94 11/08/19 03:33 109 11/08/19 03:30 104 21 50 11/08/19 03:30 106 21 105/64 (78) 94 11/08/19 03:15 102 21 83/43 (56) 94 11/08/19 03:00 103 20 71/43 (52) 97 11/08/19 03:00 71/43 11/08/19 02:50 104 22 87/58 (68) 94 11/08/19 02:45 104 20 86/43 (57) 100 11/08/19 02:45 86/43 11/08/19 02:30 109 20 95/54 (68) 95 11/08/19 02:15 103 19 118/90 (99) 93 11/08/19 02:00 100.0 110 22 108/73 (85) 100 11/08/19 02:00 108/73 11/08/19 01:45 110 21 91/35 (53) 98 11/08/19 01:30 108 20 156/137 (143) 99 11/08/19 01:19 125/55 11/08/19 01:00 109 19 113/61 (78) 99 11/08/19 01:00 113/61 11/08/19 00:30 110 17 85/70 (75) 98 11/08/19 00:00 Mechanical Ventilator 11/08/19 00:00 101.4 110 17 112/50 (70) 93 11/08/19 00:00 50 11/08/19 00:00 112/50 11/07/19 23:42 106 11/07/19 23:30 106 24 50 11/07/19 23:30 105 18 129/56 (80) 100 11/07/19 23:00 113/59 11/07/19 23:00 104 18 113/59 (77) 100 11/07/19 22:30 101 17 121/64 (83) 100 11/07/19 22:00 100 16 105/51 (69) 100 11/07/19 22:00 105/51 11/07/19 21:30 98 16 119/70 (86) 100 11/07/19 21:15 99 16 105/58 (74) 100 11/07/19 21:05 100 11/07/19 21:00 103 19 131/48 (75) 87 11/07/19 21:00 131/48 11/07/19 20:30 102 17 91/48 (62) 93 11/07/19 20:00 99.9 106 20 115/63 (80) 93 11/07/19 20:00 Mechanical Ventilator 11/07/19 20:00 115/63 11/07/19 20:00 40 11/07/19 19:45 110 21 120/59 (79) 94 11/07/19 19:30 108 16 40 11/07/19 19:30 108 21 120/52 (74) 87 11/07/19 19:23 109 11/07/19 19:00 109 23 110/59 (76) 95 11/07/19 19:00 121/52 11/07/19 18:30 104 21 121/83 (96) 94 11/07/19 18:00 96 18 111/64 (80) 94 11/07/19 18:00 116/46 6/3/20 17:30 99 20 111/64 (80) 94 11/07/19 17:00 86/45 11/07/19 17:00 85 18 86/45 (59) 98 11/07/19 16:42 101/52 11/07/19 16:30 89 19 101/52 (68) 98 11/07/19 16:30 101/52 11/07/19 16:00 98.7 11/07/19 16:00 Mechanical Ventilator 11/07/19 16:00 92 19 97/52 (67) 100 11/07/19 16:00 90 11/07/19 16:00 97/51 11/07/19 16:00 40 11/07/19 15:30 92 18 94/42 (59) 100 11/07/19 15:15 93 17 40 11/07/19 15:00 91 17 97/48 (64) 100 11/07/19 15:00 97/48 11/07/19 14:30 89 19 96/48 (64) 100 Height (Feet): 5 Height (Inches): 11.00 Weight (Pounds): 193 Microbiology Date/Time Source Procedure Growth Status 11/06/19 14:15 Blood Blood Culture - Preliminary Gram Negative Bacillus 1 Resulted 11/06/19 14:05 Blood Blood Culture - Preliminary Gram Negative Bacillus 1 Resulted 11/05/19 16:20 Blood Blood Culture - Final Escherichia Coli Complete 11/05/19 16:10 Blood Blood Culture - Final Escherichia Coli Complete 11/06/19 13:55 Sputum Gram Stain - Final Resulted 11/06/19 13:55 Sputum Culture - Preliminary Acinetobacter Baumannii Complx Gram Negative Bacillus 2 Resulted 11/05/19 22:00 Nasopharynx Coronavirus COVID-19 PCR ([facility]) - Final Complete 11/05/19 15:45 Nasal Nares MRSA Culture - Final Staphylococcus Aureus - Mrsa Complete 11/05/19 15:48 Urine,Clean Catch Urine Culture - Final Escherichia Coli Complete 11/05/19 15:45 Rectum - Final NO CARBAPENEM-RESISTANT ENTEROBACTERI... Complete 11/05/19 15:45 Rectum VRE Culture - Final Enterococcus Faecalis - Vre Complete Laboratory Tests Test 11/08/19 02:30 11/08/19 04:00 11/08/19 06:40 11/08/19 07:30 Urine Eosinophils None seen (NONE SEEN) White Blood Count 5.6 K/UL (4.8-10.8) Red Blood Count 3.01 M/UL (4.70-6.10) L Hemoglobin 8.4 G/DL (14.2-18.0) L Hematocrit 25.4 % (42.0-52.0) L Mean Corpuscular Volume 84 FL (80-99) Mean Corpuscular Hemoglobin 28.0 PG (27.0-31.0) Mean Corpuscular Hemoglobin Concent 33.2 G/DL (32.0-36.0) Red Cell Distribution Width 15.0 % (11.6-14.8) H Platelet Count 37 K/UL (150-450) L Mean Platelet Volume 9.3 FL (6.5-10.1) Neutrophils (%) (Auto) % (45.0-75.0) Lymphocytes (%) (Auto) % (20.0-45.0) Monocytes (%) (Auto) % (1.0-10.0) Eosinophils (%) (Auto) % (0.0-3.0) Basophils (%) (Auto) % (0.0-2.0) Differential Total Cells Counted 100 Neutrophils % (Manual) 77 % (45-75) H Lymphocytes % (Manual) 5 % (20-45) L Monocytes % (Manual) 4 % (1-10) Eosinophils % (Manual) 3 % (0-3) Basophils % (Manual) 0 % (0-2) Band Neutrophils 11 % (0-8) H Platelet Estimate Decreased L Platelet Morphology Normal Hypochromasia 1+ Anisocytosis 1+ Sodium Level 133 MMOL/L (136-145) L Potassium Level 3.6 MMOL/L (3.5-5.1) Chloride Level 98 MMOL/L (98-107) Carbon Dioxide Level 25 MMOL/L (21-32) Anion Gap 10 mmol/L (5-15) Blood Urea Nitrogen 51 mg/dL (7-18) H Creatinine 3.1 MG/DL (0.55-1.30) H Estimat Glomerular Filtration Rate 23.9 mL/min (>60) Glucose Level 125 MG/DL (74-106) H Lactic Acid Level 4.30 mmol/L (0.4-2.0) H 4.80 mmol/L (0.66-2.22) H Uric Acid 5.4 MG/DL (2.6-7.2) Calcium Level 7.1 MG/DL (8.5-10.1) L Phosphorus Level 2.7 MG/DL (2.5-4.9) Magnesium Level 1.9 MG/DL (1.8-2.4) Total Bilirubin 4.3 MG/DL (0.2-1.0) H Direct Bilirubin 3.9 MG/DL (0.0-0.3) H Aspartate Amino Transf (AST/SGOT) 33 U/L (15-37) Alanine Aminotransferase (ALT/SGPT) 24 U/L (12-78) Alkaline Phosphatase 105 U/L (46-116) Ammonia 62 umol/L (11-32) H Troponin I 0.142 ng/mL (0.000-0.056) C-Reactive Protein, Quantitative 20.7 mg/dL (0.00-0.90) H Pro-B-Type Natriuretic Peptide > 52977 pg/mL (0-125) H Total Protein 4.7 G/DL (6.4-8.2) L Albumin 1.3 G/DL (3.4-5.0) L Globulin 3.4 g/dL Albumin/Globulin Ratio 0.4 (1.0-2.7) L Thyroid Stimulating Hormone (TSH) 2.052 uiU/mL (0.358-3.740) Arterial Blood pH 7.425 (7.350-7.450) Arterial Blood Partial Pressure CO2 36.6 mmHg (35.0-45.0) Arterial Blood Partial Pressure O2 45.5 mmHg (75.0-100.0) Arterial Blood HCO3 23.5 mmol/L (22.0-26.0) Arterial Blood Oxygen Saturation 81.4 % (95-100) *L Arterial Blood Base Excess -0.7 (-2-2) Manny Test Positive Test 11/08/19 10:10 Lactic Acid Level 5.50 mmol/L (0.4-2.0) H Current Medications Medications (Trade) Dose Ordered Sig/Briana Route PRN Reason Start Time Stop Time Status Last Admin Dose Admin Acetaminophen (Tylenol) 650 mg Q4H PRN ORAL Fever 11/06/19 11:00 12/06/19 10:59 11/08/19 08:30 Albuterol/ Ipratropium (Albuterol/ Ipratropium) 3 ml Q4H PRN HHN Shortness of Breath 11/06/19 11:00 11/11/19 10:59 Chlorhexidine Gluconate (Jenna-Hex 2%) 1 applic DAILY@2000 TOPIC 11/06/19 20:00 02/04/20 19:59 11/07/19 19:48 Dextrose (Dextrose 50%) 25 ml Q30MIN PRN IV Hypoglycemia 11/06/19 11:00 02/04/20 10:59 Dextrose (Dextrose 50%) 50 ml Q30MIN PRN IV Hypoglycemia 11/06/19 11:00 02/04/20 10:59 Dextrose/Sodium Chloride 1,000 ml @ 75 mls/hr [id number] IV 11/07/19 13:30 12/07/19 13:29 11/08/19 14:02 Lorazepam (Ativan 2mg/ml 1ml) 2 mg Q4H PRN IV For Anxiety 11/06/19 11:00 11/13/19 10:59 Meropenem 1 gm/ Sodium Chloride 55 ml @ 110 mls/hr Q12H IVPB 11/06/19 14:00 11/11/19 13:59 11/08/19 14:02 Midodrine (Pro-Amatine) 10 mg TID ORAL 11/08/19 13:00 02/06/20 12:59 11/08/19 12:05 Morphine Sulfate (Morphine Sulfate) 4 mg Q4H PRN IVP For Pain 11/06/19 11:00 11/13/19 10:59 11/07/19 09:58 Norepinephrine Bitartrate 4 mg/ Dextrose 250 ml @ 0 mls/hr Q24H IV 11/08/19 01:15 12/08/19 01:14 11/08/19 12:05 Ondansetron HCl (Zofran) 4 mg Q6H PRN IVP Nausea & Vomiting 11/06/19 11:00 12/06/19 10:59 Pantoprazole (Protonix) 40 mg Q12HR IV 11/06/19 21:00 12/07/19 08:59 11/08/19 07:48 Temazepam (Restoril) 15 mg HSPRN PRN ORAL Insomnia 11/06/19 11:00 11/13/19 10:59 [facility] 1 [facility]a DAILY PRN MISC Per rx protocol 11/06/19 12:45 12/06/19 12:44 Olga Allred M.D. Nov 08, 2019 14:38
--- NOTE | 2019-11-08 15:07 | Hematology/Onc Progress Note ---
Assessment/Plan Assessment/Plan # Thrombocytopenia - potential causes multifactorial, evaluate liver and viral etiologies to begin, also could be related to underlying medications patient has received. in this case likely due to sepsis --> Hep panel and HIV ordered --> US abd to evaluate for cirrhosis and hsm ordered --> Peripheral smear ordered to evaluate for blasts /schistocytes --> abx and other meds have been reviewed --> ok for ppx if plt >50k w/ either heparin or lovenox --> Transfuse if Plt < 20k and fever, or if Plt < 10k without fever --> plt trend 123-->88-->65->37 ->> abx reviewed, per id # Anemia of chronic disease due to underlying chronic medical issues, multifactorial v Gi bleed --> Anemia workup has been ordered, rule out gi bleed --> No evidence of hemolysis is noted, peripheral smear has been reviewed. --> Hgb goal >7. Transfuse prn. --> Epogen or iron at this time is not particularly indicated --> Medications have been reviewed --> low threshold for gi evaluation in case has occult + # Acute Renal failure, mainly acute, most likely secondary to septic shock --> per renal care --> ivfs as needed # Acute respiratory failure requiring intubation --> now on vent, in icu # Healthcare associated pneumonia --> abx per id --> ABX levaquin and orquidea # Atrial fibrillation with fast ventricular rate --> acticoag per cards # History of CHF # Pleural effusion # Dementia/Alzheimer's # History of CVA # History of COPD # Dry gangrene of the lower extremities # Severe hypoalbuminemia # Dvt ppx scds The timing of this note does not necessarily reflect the time of the patient was seen. Greatly appreciate consultation. Subjective Allergies: Coded Allergies: No Known Allergies (Unverified , 11/05/19) All Systems: reviewed and negative except above Subjective 11/06 icu, confused, vent, hgb 7.9, prbc ordered 11/07 is on levophed, confused, plt is 37k, heparin sq has been held Objective Objective Current Medications Medications (Trade) Dose Ordered Sig/Briana Route PRN Reason Start Time Stop Time Status Last Admin Dose Admin Acetaminophen (Tylenol) 650 mg Q4H PRN ORAL Fever 11/06/19 11:00 12/06/19 10:59 11/08/19 08:30 Albuterol/ Ipratropium (Albuterol/ Ipratropium) 3 ml Q4H PRN HHN Shortness of Breath 11/06/19 11:00 11/11/19 10:59 Chlorhexidine Gluconate (Jenna-Hex 2%) 1 applic DAILY@2000 TOPIC 11/06/19 20:00 02/04/20 19:59 11/07/19 19:48 Dextrose (Dextrose 50%) 25 ml Q30MIN PRN IV Hypoglycemia 11/06/19 11:00 02/04/20 10:59 Dextrose (Dextrose 50%) 50 ml Q30MIN PRN IV Hypoglycemia 11/06/19 11:00 02/04/20 10:59 Dextrose/Sodium Chloride 1,000 ml @ 75 mls/hr [id number] IV 11/07/19 13:30 12/07/19 13:29 11/08/19 14:02 Levofloxacin 150 ml @ 100 mls/hr EVERY OTHER DAY IVPB 11/08/19 16:00 11/15/19 15:59 Lorazepam (Ativan 2mg/ml 1ml) 2 mg Q4H PRN IV For Anxiety 11/06/19 11:00 11/13/19 10:59 Meropenem 1 gm/ Sodium Chloride 55 ml @ 110 mls/hr Q12H IVPB 11/06/19 14:00 11/11/19 13:59 11/08/19 14:02 Midodrine (Pro-Amatine) 10 mg TID ORAL 11/08/19 13:00 02/06/20 12:59 11/08/19 12:05 Morphine Sulfate (Morphine Sulfate) 4 mg Q4H PRN IVP For Pain 11/06/19 11:00 11/13/19 10:59 11/07/19 09:58 Norepinephrine Bitartrate 4 mg/ Dextrose 250 ml @ 0 mls/hr Q24H IV 11/08/19 01:15 12/08/19 01:14 11/08/19 12:05 Ondansetron HCl (Zofran) 4 mg Q6H PRN IVP Nausea & Vomiting 11/06/19 11:00 12/06/19 10:59 Pantoprazole (Protonix) 40 mg Q12HR IV 11/06/19 21:00 12/07/19 08:59 11/08/19 07:48 Temazepam (Restoril) 15 mg HSPRN PRN ORAL Insomnia 11/06/19 11:00 11/13/19 10:59 Last 24 Hour Vital Signs Date Time Temp Pulse Resp B/P (MAP) Pulse Ox O2 Delivery O2 Flow Rate FiO2 11/08/19 14:35 106 19 100 11/08/19 14:30 100 19 88/52 (64) 94 11/08/19 14:00 109 23 88/40 (56) 96 11/08/19 13:30 104 23 96/51 (66) 92 11/08/19 13:00 104 22 90/40 (57) 92 11/08/19 12:30 106 22 86/43 (57) 93 11/08/19 12:30 86/43 11/08/19 12:15 79/46 11/08/19 12:10 87/32 11/08/19 12:05 82/29 11/08/19 12:00 60 11/08/19 12:00 101.0 108 23 87/32 (50) 96 11/08/19 12:00 111 11/08/19 12:00 Mechanical Ventilator 11/08/19 11:30 108 24 105/80 (88) 94 11/08/19 11:30 105/80 11/08/19 11:00 104 23 89/42 (58) 95 11/08/19 10:49 112 22 60 11/08/19 10:30 108 24 90/44 (59) 95 11/08/19 10:00 112 23 93/41 (58) 98 11/08/19 09:59 101.3 11/08/19 09:30 110 24 114/65 (81) 92 11/08/19 09:00 111 24 93/66 (75) 93 11/08/19 08:30 109 23 87/41 (56) 89 11/08/19 08:30 87/41 11/08/19 08:00 Mechanical Ventilator 11/08/19 08:00 102.0 108 22 85/47 (60) 92 11/08/19 08:00 50 11/08/19 08:00 85/47 11/08/19 08:00 109 6/4/20 07:49 114/62 11/08/19 07:30 108 22 114/57 (76) 92 11/08/19 07:29 105 22 50 11/08/19 07:00 106 22 92/40 (57) 93 11/08/19 07:00 92/40 11/08/19 06:33 109 22 91/52 (65) 91 11/08/19 06:30 108 20 74/58 (63) 91 11/08/19 06:15 108 21 104/49 (67) 91 11/08/19 06:00 87/71 11/08/19 06:00 107 21 87/71 (76) 92 11/08/19 05:33 102 19 86/41 (56) 91 11/08/19 05:30 103 19 83/43 (56) 91 11/08/19 05:15 106 21 98/44 (62) 94 11/08/19 05:05 111 22 124/56 (78) 94 11/08/19 05:00 109 21 113/98 (103) 94 11/08/19 05:00 113/98 11/08/19 04:53 106 19 109/42 (64) 92 11/08/19 04:50 106 21 74/43 (53) 96 11/08/19 04:45 105 20 81/41 (54) 94 11/08/19 04:39 104 20 80/42 (55) 92 11/08/19 04:30 107 21 80/42 (55) 97 11/08/19 04:30 80/42 11/08/19 04:15 112 20 83/52 (62) 94 11/08/19 04:00 Mechanical Ventilator 11/08/19 04:00 84/36 11/08/19 04:00 50 11/08/19 04:00 99.3 107 21 84/36 (52) 98 11/08/19 03:57 108 23 110/35 (60) 91 11/08/19 03:45 107 22 87/44 (58) 94 11/08/19 03:33 109 11/08/19 03:30 104 21 50 11/08/19 03:30 106 21 105/64 (78) 94 11/08/19 03:15 102 21 83/43 (56) 94 11/08/19 03:00 103 20 71/43 (52) 97 11/08/19 03:00 71/43 11/08/19 02:50 104 22 87/58 (68) 94 11/08/19 02:45 104 20 86/43 (57) 100 11/08/19 02:45 86/43 11/08/19 02:30 109 20 95/54 (68) 95 11/08/19 02:15 103 19 118/90 (99) 93 11/08/19 02:00 100.0 110 22 108/73 (85) 100 11/08/19 02:00 108/73 11/08/19 01:45 110 21 91/35 (53) 98 11/08/19 01:30 108 20 156/137 (143) 99 11/08/19 01:19 125/55 11/08/19 01:00 109 19 113/61 (78) 99 11/08/19 01:00 113/61 11/08/19 00:30 110 17 85/70 (75) 98 11/08/19 00:00 Mechanical Ventilator 11/08/19 00:00 101.4 110 17 112/50 (70) 93 11/08/19 00:00 50 11/08/19 00:00 112/50 11/07/19 23:42 106 11/07/19 23:30 106 24 50 11/07/19 23:30 105 18 129/56 (80) 100 11/07/19 23:00 113/59 11/07/19 23:00 104 18 113/59 (77) 100 11/07/19 22:30 101 17 121/64 (83) 100 11/07/19 22:00 100 16 105/51 (69) 100 11/07/19 22:00 105/51 11/07/19 21:30 98 16 119/70 (86) 100 11/07/19 21:15 99 16 105/58 (74) 100 11/07/19 21:05 100 11/07/19 21:00 103 19 131/48 (75) 87 11/07/19 21:00 131/48 11/07/19 20:30 102 17 91/48 (62) 93 11/07/19 20:00 99.9 106 20 115/63 (80) 93 11/07/19 20:00 Mechanical Ventilator 11/07/19 20:00 115/63 11/07/19 20:00 40 11/07/19 19:45 110 21 120/59 (79) 94 11/07/19 19:30 108 16 40 11/07/19 19:30 108 21 120/52 (74) 87 11/07/19 19:23 109 11/07/19 19:00 109 23 110/59 (76) 95 11/07/19 19:00 121/52 11/07/19 18:30 104 21 121/83 (96) 94 11/07/19 18:00 96 18 111/64 (80) 94 11/07/19 18:00 116/46 11/07/19 17:30 99 20 111/64 (80) 94 11/07/19 17:00 86/45 11/07/19 17:00 85 18 86/45 (59) 98 11/07/19 16:42 101/52 11/07/19 16:30 89 19 101/52 (68) 98 11/07/19 16:30 101/52 11/07/19 16:00 98.7 11/07/19 16:00 Mechanical Ventilator 11/07/19 16:00 92 19 97/52 (67) 100 11/07/19 16:00 90 11/07/19 16:00 97/51 11/07/19 16:00 40 11/07/19 15:30 92 18 94/42 (59) 100 11/07/19 15:15 93 17 40 11/07/19 15:00 91 17 97/48 (64) 100 11/07/19 15:00 97/48 11/07/19 14:30 89 19 96/48 (64) 100 11/07/19 14:00 89 19 94/44 (61) 100 11/07/19 14:00 96/48 11/07/19 13:30 92 20 99/68 (78) 100 11/07/19 13:00 90 18 93/48 (63) 100 11/07/19 13:00 93/48 11/07/19 12:30 92 18 118/58 (78) 100 11/07/19 12:00 40 11/07/19 12:00 Mechanical Ventilator 11/07/19 12:00 87 11/07/19 12:00 128/50 11/07/19 12:00 98.8 88 18 128/50 (76) 100 11/07/19 11:30 88 18 119/51 (73) 100 11/07/19 11:24 83 19 40 11/07/19 11:00 118/50 11/07/19 11:00 87 17 118/50 (72) 100 11/07/19 10:45 86 17 122/50 (74) 100 11/07/19 10:30 85 18 117/46 (69) 100 11/07/19 10:15 85 17 100/47 (64) 100 11/07/19 10:00 117/46 11/07/19 10:00 86 18 119/55 (76) 100 11/07/19 09:45 88 18 120/50 (73) 11/07/19 09:30 87 17 116/42 (66) 100 11/07/19 09:00 89 17 125/52 (76) 100 11/07/19 09:00 125/52 11/07/19 08:30 98.4 90 17 123/52 (75) 100 11/07/19 08:30 123/52 11/07/19 08:00 40 11/07/19 08:00 Mechanical Ventilator 11/07/19 08:00 119/51 11/07/19 08:00 94 15 119/51 (73) 100 11/07/19 08:00 88 11/07/19 07:40 94 20 40 11/07/19 07:30 94 19 130/44 (72) 11/07/19 07:00 93 20 146/132 (137) 100 11/07/19 06:30 97 23 109/71 (84) 100 11/07/19 06:00 99.6 103 21 117/64 (81) 100 11/07/19 06:00 117/64 11/07/19 05:47 135/46 11/07/19 05:30 102 24 135/46 (75) 96 11/07/19 05:00 103 24 125/99 (108) 100 11/07/19 05:00 125/99 11/07/19 04:30 98 21 128/53 (78) 98 11/07/19 04:00 101.4 98 20 114/61 (78) 98 11/07/19 04:00 40 11/07/19 04:00 114/61 11/07/19 04:00 Mechanical Ventilator 11/07/19 03:30 95 18 138/48 (78) 99 11/07/19 03:26 94 11/07/19 03:17 102 21 40 11/07/19 03:00 92 18 120/51 (74) 98 11/07/19 03:00 120/51 11/07/19 02:30 92 17 128/45 (72) 98 11/07/19 02:00 147/50 11/07/19 02:00 96 17 147/50 (82) 100 11/07/19 01:30 91 17 140/45 (76) 98 11/07/19 01:00 89 16 138/51 (80) 98 11/07/19 01:00 138/51 11/07/19 00:30 99.6 95 18 143/55 (84) 99 11/07/19 00:00 94 11/07/19 00:00 Mechanical Ventilator 11/07/19 00:00 94 18 140/59 (86) 99 11/07/19 00:00 140/59 11/07/19 00:00 40 11/06/19 23:53 94 17 40 11/06/19 23:30 88 17 150/54 (86) 100 11/06/19 23:00 88 17 139/50 (79) 98 11/06/19 23:00 139/50 11/06/19 22:30 91 18 152/55 (87) 98 11/06/19 22:16 132/52 11/06/19 22:00 87 16 132/52 (78) 100 11/06/19 21:30 89 17 134/59 (84) 99 11/06/19 21:00 127/52 11/06/19 21:00 91 18 127/52 (77) 100 20 20:30 112/55 11/06/19 20:30 99.9 93 18 112/55 (74) 100 11/06/19 20:00 Mechanical Ventilator 11/06/19 20:00 137/48 20 20:00 40 11/06/19 20:00 88 15 137/48 (77) 100 11/06/19 19:45 87 21 40 11/06/19 19:30 85 16 154/62 (92) 99 6/2/20 19:26 90 11/06/19 19:00 86 16 110/60 (77) 100 11/06/19 19:00 124/89 11/06/19 18:45 86 22 82/44 (57) 98 11/06/19 18:45 87/44 11/06/19 18:30 83/39 11/06/19 18:30 88 20 82/37 (52) 97 11/06/19 18:15 76/42 11/06/19 18:15 92 20 88/45 (59) 96 11/06/19 18:00 96 20 88/45 (59) 98 11/06/19 18:00 88/45 11/06/19 17:54 100.9 11/06/19 17:30 99 18 116/60 (78) 100 11/06/19 17:00 100/44 11/06/19 17:00 99 17 100/44 (62) 100 11/06/19 16:29 99 19 99/53 (68) 99 11/06/19 16:00 98 11/06/19 16:00 Mechanical Ventilator 11/06/19 16:00 40 11/06/19 16:00 125/60 11/06/19 16:00 100 19 125/50 (75) 99 11/06/19 16:00 100.0 11/06/19 15:30 99 18 113/52 (72) 99 11/06/19 15:30 99 21 113/62 (79) 98 11/06/19 15:07 91 20 40 Intake and Output 11/07/19 11/08/19 19:00 07:00 Intake Total 2299.375 ml 1660.55 ml Output Total 215 ml 260 ml Balance 2084.375 ml 1400.55 ml IV Total 2299.375 ml 1375.55 ml Tube Feeding 175 ml Other 110 ml Output Urine Total 215 ml 260 ml # Bowel Movements 1 2 Labs Test 11/05/19 15:48 11/05/19 16:15 11/05/19 23:30 11/06/19 04:00 Urine Color Yellow Urine Appearance Slightly cloudy Urine pH 5 (4.5-8.0) Urine Specific [place] 1.015 (1.005-1.035) Urine Protein 3+ (NEGATIVE) Urine Glucose (UA) Negative (NEGATIVE) Urine Ketones Negative (NEGATIVE) Urine Blood 4+ (NEGATIVE) Urine Nitrite Negative (NEGATIVE) Urine Bilirubin 1+ (NEGATIVE) Urine Ictotest Negativ e (NEGATIVE) Urine Urobilinogen 8 MG/DL (0.0-1.0) Urine Leukocyte Esterase 3+ (NEGATIVE) Urine RBC 10-15 /HPF (0 - 0) Urine WBC 40-60 /HPF (0 - 0) Urine Squamous Epithelial Cells Occasional /LPF Urine Amorphous Sediment Many /LPF (NONE) Urine Bacteria Many /HPF (NONE) White Blood Count 5.7 K/UL (4.8-10.8) 5.2 K/UL (4.8-10.8) Red Blood Count 3.40 M/UL (4.70-6.10) 3.20 M/UL (4.70-6.10) Hemoglobin 9.8 G/DL (14.2-18.0) 9.2 G/DL (14.2-18.0) Hematocrit 31.7 % (42.0-52.0) 27.6 % (42.0-52.0) Mean Corpuscular Volume 93 FL (80-99) 86 FL (80-99) Mean Corpuscular Hemoglobin 28.7 PG (27.0-31.0) 28.7 PG (27.0-31.0) Mean Corpuscular Hemoglobin Concent 30.7 G/DL (32.0-36.0) 33.2 G/DL (32.0-36.0) Red Cell Distribution Width 16.0 % (11.6-14.8) 13.8 % (11.6-14.8) Platelet Count 123 K/UL (150-450) 88 K/UL (150-450) Mean Platelet Volume 8.4 FL (6.5-10.1) 6.0 FL (6.5-10.1) Neutrophils (%) (Auto) % (45.0-75.0) % (45.0-75.0) Lymphocytes (%) (Auto) % (20.0-45.0) % (20.0-45.0) Monocytes (%) (Auto) % (1.0-10.0) % (1.0-10.0) Eosinophils (%) (Auto) % (0.0-3.0) % (0.0-3.0) Basophils (%) (Auto) % (0.0-2.0) % (0.0-2.0) Differential Total Cells Counted 100 100 Neutrophils % (Manual) 90 % (45-75) 91 % (45-75) Lymphocytes % (Manual) 4 % (20-45) 5 % (20-45) Monocytes % (Manual) 2 % (1-10) 2 % (1-10) Eosinophils % (Manual) 0 % (0-3) 1 % (0-3) Basophils % (Manual) 0 % (0-2) 1 % (0-2) Band Neutrophils 4 % (0-8) 0 % (0-8) Platelet Estimate Decreased Decreased Platelet Morphology Normal Normal Hypochromasia 1+ 2+ Anisocytosis 1+ 1+ Prothrombin Time 17.5 SEC (9.30-11.50) Prothromb Time International Ratio 1.6 (0.9-1.1) Activated Partial Thromboplast Time 48 SEC (23-33) D-Dimer 7.10 mg/L FEU (0.00-0.49) Sodium Level 132 MMOL/L (136-145) 132 MMOL/L (136-145) Potassium Level 3.8 MMOL/L (3.5-5.1) 3.4 MMOL/L (3.5-5.1) Chloride Level 95 MMOL/L (98-107) 95 MMOL/L (98-107) Carbon Dioxide Level 33 MMOL/L (21-32) 32 MMOL/L (21-32) Anion Gap 4 mmol/L (5-15) 5 mmol/L (5-15) Blood Urea Nitrogen 40 mg/dL (7-18) 42 mg/dL (7-18) Creatinine 2.0 MG/DL (0.55-1.30) 2.3 MG/DL (0.55-1.30) Estimat Glomerular Filtration Rate 39.5 mL/min (>60) 33.7 mL/min (>60) Glucose Level 120 MG/DL (74-106) 97 MG/DL (74-106) Lactic Acid Level 1.30 mmol/L (0.4-2.0) Calcium Level 7.8 MG/DL (8.5-10.1) 7.4 MG/DL (8.5-10.1) Total Bilirubin 2.1 MG/DL (0.2-1.0) 2.3 MG/DL (0.2-1.0) Direct Bilirubin 1.8 MG/DL (0.0-0.3) 2.0 MG/DL (0.0-0.3) Aspartate Amino Transf (AST/SGOT) 29 U/L (15-37) 27 U/L (15-37) Alanine Aminotransferase (ALT/SGPT) 23 U/L (12-78) 25 U/L (12-78) Alkaline Phosphatase 136 U/L (46-116) 123 U/L (46-116) Troponin I 0.066 ng/mL (0.000-0.056) C-Reactive Protein, Quantitative 18.8 mg/dL (0.00-0.90) Total Protein 5.6 G/DL (6.4-8.2) 5.2 G/DL (6.4-8.2) Albumin 1.3 G/DL (3.4-5.0) 1.3 G/DL (3.4-5.0) Globulin 4.3 g/dL 3.9 g/dL Albumin/Globulin Ratio 0.3 (1.0-2.7) 0.3 (1.0-2.7) Lipase 76 U/L (73-393) Digoxin Level 1.4 NG/ML (0.5-2.0) Arterial Blood pH 7.457 (7.350-7.450) Arterial Blood Partial Pressure CO2 44.4 mmHg (35.0-45.0) Arterial Blood Partial Pressure O2 199.1 mmHg (75.0-100.0) Arterial Blood HCO3 30.7 mmol/L (22.0-26.0) Arterial Blood Oxygen Saturation 98.6 % (95-100) Arterial Blood Base Excess 6.1 (-2-2) Manny Test Positive Erythrocyte Sedimentation Rate 45 MM/HR (0-20) Hemoglobin A1c 7.4 % (4.3-6.0) Pro-B-Type Natriuretic Peptide > 41408 pg/mL (0-125) Test 11/06/19 11:13 11/06/19 11:27 11/06/19 17:58 11/07/19 04:00 Troponin I 0.098 ng/mL (0.000-0.056) 0.165 ng/mL (0.000-0.056) Arterial Blood pH 7.524 (7.350-7.450) Arterial Blood Partial Pressure CO2 34.6 mmHg (35.0-45.0) Arterial Blood Partial Pressure O2 65.6 mmHg (75.0-100.0) Arterial Blood HCO3 27.9 mmol/L (22.0-26.0) Arterial Blood Oxygen Saturation 93.5 % (95-100) Arterial Blood Base Excess 4.9 (-2-2) Manny Test Positive Urine Random Sodium < 20 mmol/L (20-110) Test 11/07/19 04:40 11/07/19 05:50 11/07/19 11:00 11/07/19 11:10 White Blood Count 5.1 K/UL (4.8-10.8) Red Blood Count 2.77 M/UL (4.70-6.10) Hemoglobin 7.9 G/DL (14.2-18.0) Hematocrit 23.6 % (42.0-52.0) Mean Corpuscular Volume 85 FL (80-99) Mean Corpuscular Hemoglobin 28.6 PG (27.0-31.0) Mean Corpuscular Hemoglobin Concent 33.6 G/DL (32.0-36.0) Red Cell Distribution Width 13.8 % (11.6-14.8) Platelet Count 65 K/UL (150-450) Mean Platelet Volume 7.2 FL (6.5-10.1) Neutrophils (%) (Auto) % (45.0-75.0) Lymphocytes (%) (Auto) % (20.0-45.0) Monocytes (%) (Auto) % (1.0-10.0) Eosinophils (%) (Auto) % (0.0-3.0) Basophils (%) (Auto) % (0.0-2.0) Differential Total Cells Counted 100 Neutrophils % (Manual) 74 % (45-75) Lymphocytes % (Manual) 6 % (20-45) Monocytes % (Manual) 3 % (1-10) Eosinophils % (Manual) 1 % (0-3) Basophils % (Manual) 0 % (0-2) Band Neutrophils 16 % (0-8) Platelet Estimate Decreased Platelet Morphology Normal Hypochromasia 1+ Anisocytosis 1+ Schistocytes Rare Sodium Level 135 MMOL/L (136-145) Potassium Level 3.4 MMOL/L (3.5-5.1) Chloride Level 99 MMOL/L (98-107) Carbon Dioxide Level 29 MMOL/L (21-32) Anion Gap 8 mmol/L (5-15) Blood Urea Nitrogen 48 mg/dL (7-18) Creatinine 2.7 MG/DL (0.55-1.30) Estimat Glomerular Filtration Rate 28.0 mL/min (>60) Glucose Level 75 MG/DL (74-106) Hemoglobin A1c 7.2 % (4.3-6.0) Uric Acid 5.5 MG/DL (2.6-7.2) Calcium Level 7.1 MG/DL (8.5-10.1) Phosphorus Level 2.7 MG/DL (2.5-4.9) Magnesium Level 1.3 MG/DL (1.8-2.4) Iron Level 18 ug/dL (50-175) Total Iron Binding Capacity 62 ug/dL (250-450) Percent Iron Saturation 29 % (15-50) Unsaturated Iron Binding 44 ug/dL (112-346) Ferritin 1308 NG/ML (8-388) Total Bilirubin 2.6 MG/DL (0.2-1.0) Direct Bilirubin 2.2 MG/DL (0.0-0.3) Gamma Glutamyl Transpeptidase 81 U/L (5-85) Aspartate Amino Transf (AST/SGOT) 33 U/L (15-37) Alanine Aminotransferase (ALT/SGPT) 17 U/L (12-78) Alkaline Phosphatase 113 U/L (46-116) Total Creatine Kinase 28 U/L (26-308) C-Reactive Protein, Quantitative 19.0 mg/dL (0.00-0.90) Pro-B-Type Natriuretic Peptide > 73166 pg/mL (0-125) Total Protein 4.6 G/DL (6.4-8.2) Albumin 1.1 G/DL (3.4-5.0) Globulin 3.5 g/dL Albumin/Globulin Ratio 0.3 (1.0-2.7) Vitamin B12 Level > 2000 PG/ML (193-986) Folate 9.6 NG/ML (8.6-58.9) Cortisol AM Sample 53.5 UG/DL Random Vancomycin Level 12.9 ug/mL Urine Eosinophils None seen (NONE SEEN) Troponin I 0.144 ng/mL (0.000-0.056) Lactic Acid Level 1.80 mmol/L (0.4-2.0) Hepatitis A IgM Antibody Negative (Negative) Hepatitis B Surface Antigen Negative (Negative) Hepatitis B Core IgM Antibody Negative (Negative) Hepatitis C Antibody <0.1 s/co ratio HIV (1&2) Antibody Rapid Negative (NEGATIVE) Test 11/08/19 02:30 11/08/19 04:00 11/08/19 06:40 11/08/19 07:30 Urine Eosinophils None seen (NONE SEEN) White Blood Count 5.6 K/UL (4.8-10.8) Red Blood Count 3.01 M/UL (4.70-6.10) Hemoglobin 8.4 G/DL (14.2-18.0) Hematocrit 25.4 % (42.0-52.0) Mean Corpuscular Volume 84 FL (80-99) Mean Corpuscular Hemoglobin 28.0 PG (27.0-31.0) Mean Corpuscular Hemoglobin Concent 33.2 G/DL (32.0-36.0) Red Cell Distribution Width 15.0 % (11.6-14.8) Platelet Count 37 K/UL (150-450) Mean Platelet Volume 9.3 FL (6.5-10.1) Neutrophils (%) (Auto) % (45.0-75.0) Lymphocytes (%) (Auto) % (20.0-45.0) Monocytes (%) (Auto) % (1.0-10.0) Eosinophils (%) (Auto) % (0.0-3.0) Basophils (%) (Auto) % (0.0-2.0) Differential Total Cells Counted 100 Neutrophils % (Manual) 77 % (45-75) Lymphocytes % (Manual) 5 % (20-45) Monocytes % (Manual) 4 % (1-10) Eosinophils % (Manual) 3 % (0-3) Basophils % (Manual) 0 % (0-2) Band Neutrophils 11 % (0-8) Platelet Estimate Decreased Platelet Morphology Normal Hypochromasia 1+ Anisocytosis 1+ Sodium Level 133 MMOL/L (136-145) Potassium Level 3.6 MMOL/L (3.5-5.1) Chloride Level 98 MMOL/L (98-107) Carbon Dioxide Level 25 MMOL/L (21-32) Anion Gap 10 mmol/L (5-15) Blood Urea Nitrogen 51 mg/dL (7-18) Creatinine 3.1 MG/DL (0.55-1.30) Estimat Glomerular Filtration Rate 23.9 mL/min (>60) Glucose Level 125 MG/DL (74-106) Lactic Acid Level 4.30 mmol/L (0.4-2.0) 4.80 mmol/L (0.66-2.22) Uric Acid 5.4 MG/DL (2.6-7.2) Calcium Level 7.1 MG/DL (8.5-10.1) Phosphorus Level 2.7 MG/DL (2.5-4.9) Magnesium Level 1.9 MG/DL (1.8-2.4) Total Bilirubin 4.3 MG/DL (0.2-1.0) Direct Bilirubin 3.9 MG/DL (0.0-0.3) Aspartate Amino Transf (AST/SGOT) 33 U/L (15-37) Alanine Aminotransferase (ALT/SGPT) 24 U/L (12-78) Alkaline Phosphatase 105 U/L (46-116) Ammonia 62 umol/L (11-32) Troponin I 0.142 ng/mL (0.000-0.056) C-Reactive Protein, Quantitative 20.7 mg/dL (0.00-0.90) Pro-B-Type Natriuretic Peptide > 65185 pg/mL (0-125) Total Protein 4.7 G/DL (6.4-8.2) Albumin 1.3 G/DL (3.4-5.0) Globulin 3.4 g/dL Albumin/Globulin Ratio 0.4 (1.0-2.7) Thyroid Stimulating Hormone (TSH) 2.052 uiU/mL (0.358-3.740) Arterial Blood pH 7.425 (7.350-7.450) Arterial Blood Partial Pressure CO2 36.6 mmHg (35.0-45.0) Arterial Blood Partial Pressure O2 45.5 mmHg (75.0-100.0) Arterial Blood HCO3 23.5 mmol/L (22.0-26.0) Arterial Blood Oxygen Saturation 81.4 % (95-100) Arterial Blood Base Excess -0.7 (-2-2) Manny Test Positive Test 11/08/19 10:10 Lactic Acid Level 5.50 mmol/L (0.4-2.0) Height (Feet): 5 Height (Inches): 11.00 Weight (Pounds): 193 Objective General: obtunded, Stupor Head: normocephalic, atraumatic Eyes: bilateral eye PERRL, bilateral eye EOMI ENT: dry mucus membranes - Mucus in oropharynx, other Respiratory: chest non-tender, crackles, rhonchi ++ vent Cardiovascular: regular rate, rhythm, no murmur Gastrointestinal: normal bowel sounds, non tender, no mass, no organomegaly, no bruit, non-distended Musculoskeletal: other - Gangrene to lower extremities Neurologic: no pronator Josué Terry MD Nov 08, 2019 15:07
--- NOTE | 2019-11-08 17:09 | Surgery Progress Note ---
Surgery Progress Note Subjective Additional Comments ill appearing on support labs noted plt low Objective Last 24 Hour Vital Signs Date Time Temp Pulse Resp B/P (MAP) Pulse Ox O2 Delivery O2 Flow Rate FiO2 11/08/19 16:30 109 23 91/40 (57) 97 11/08/19 16:00 100.6 106 24 96/44 (61) 94 11/08/19 16:00 Mechanical Ventilator 11/08/19 16:00 100 11/08/19 16:00 114 11/08/19 15:50 96/37 11/08/19 15:30 105 22 96/37 (56) 94 11/08/19 15:00 113 23 100/42 (61) 94 11/08/19 14:35 106 19 100 11/08/19 14:30 100 19 88/52 (64) 94 11/08/19 14:00 109 23 88/40 (56) 96 11/08/19 13:30 104 23 96/51 (66) 92 11/08/19 13:00 104 22 90/40 (57) 92 11/08/19 12:30 106 22 86/43 (57) 93 11/08/19 12:30 86/43 11/08/19 12:15 79/46 11/08/19 12:10 87/32 11/08/19 12:05 82/29 11/08/19 12:00 60 11/08/19 12:00 101.0 108 23 87/32 (50) 96 11/08/19 12:00 111 11/08/19 12:00 Mechanical Ventilator 11/08/19 11:30 108 24 105/80 (88) 94 11/08/19 11:30 105/80 11/08/19 11:00 104 23 89/42 (58) 95 11/08/19 10:49 112 22 60 11/08/19 10:30 108 24 90/44 (59) 95 11/08/19 10:00 112 23 93/41 (58) 98 11/08/19 09:59 101.3 11/08/19 09:30 110 24 114/65 (81) 92 11/08/19 09:00 111 24 93/66 (75) 93 11/08/19 08:30 109 23 87/41 (56) 89 11/08/19 08:30 87/41 11/08/19 08:00 Mechanical Ventilator 11/08/19 08:00 102.0 108 22 85/47 (60) 92 11/08/19 08:00 50 11/08/19 08:00 85/47 11/08/19 08:00 109 11/08/19 07:49 114/62 11/08/19 07:30 108 22 114/57 (76) 92 11/08/19 07:29 105 22 50 11/08/19 07:00 106 22 92/40 (57) 93 11/08/19 07:00 92/40 11/08/19 06:33 109 22 91/52 (65) 91 11/08/19 06:30 108 20 74/58 (63) 91 11/08/19 06:15 108 21 104/49 (67) 91 11/08/19 06:00 87/71 11/08/19 06:00 107 21 87/71 (76) 92 11/08/19 05:33 102 19 86/41 (56) 91 11/08/19 05:30 103 19 83/43 (56) 91 11/08/19 05:15 106 21 98/44 (62) 94 11/08/19 05:05 111 22 124/56 (78) 94 11/08/19 05:00 109 21 113/98 (103) 94 11/08/19 05:00 113/98 11/08/19 04:53 106 19 109/42 (64) 92 11/08/19 04:50 106 21 74/43 (53) 96 11/08/19 04:45 105 20 81/41 (54) 94 11/08/19 04:39 104 20 80/42 (55) 92 11/08/19 04:30 107 21 80/42 (55) 97 11/08/19 04:30 80/42 11/08/19 04:15 112 20 83/52 (62) 94 11/08/19 04:00 Mechanical Ventilator 11/08/19 04:00 84/36 11/08/19 04:00 50 11/08/19 04:00 99.3 107 21 84/36 (52) 98 11/08/19 03:57 108 23 110/35 (60) 91 11/08/19 03:45 107 22 87/44 (58) 94 11/08/19 03:33 109 11/08/19 03:30 104 21 50 11/08/19 03:30 106 21 105/64 (78) 94 11/08/19 03:15 102 21 83/43 (56) 94 11/08/19 03:00 103 20 71/43 (52) 97 11/08/19 03:00 71/43 11/08/19 02:50 104 22 87/58 (68) 94 11/08/19 02:45 104 20 86/43 (57) 100 11/08/19 02:45 86/43 11/08/19 02:30 109 20 95/54 (68) 95 11/08/19 02:15 103 19 118/90 (99) 93 11/08/19 02:00 100.0 110 22 108/73 (85) 100 11/08/19 02:00 108/73 11/08/19 01:45 110 21 91/35 (53) 98 11/08/19 01:30 108 20 156/137 (143) 99 11/08/19 01:19 125/55 11/08/19 01:00 109 19 113/61 (78) 99 11/08/19 01:00 113/61 11/08/19 00:30 110 17 85/70 (75) 98 11/08/19 00:00 Mechanical Ventilator 11/08/19 00:00 101.4 110 17 112/50 (70) 93 11/08/19 00:00 50 11/08/19 00:00 112/50 11/07/19 23:42 106 11/07/19 23:30 106 24 50 11/07/19 23:30 105 18 129/56 (80) 100 11/07/19 23:00 113/59 11/07/19 23:00 104 18 113/59 (77) 100 11/07/19 22:30 101 17 121/64 (83) 100 11/07/19 22:00 100 16 105/51 (69) 100 11/07/19 22:00 105/51 11/07/19 21:30 98 16 119/70 (86) 100 11/07/19 21:15 99 16 105/58 (74) 100 11/07/19 21:05 100 11/07/19 21:00 103 19 131/48 (75) 87 11/07/19 21:00 131/48 11/07/19 20:30 102 17 91/48 (62) 93 11/07/19 20:00 99.9 106 20 115/63 (80) 93 11/07/19 20:00 Mechanical Ventilator 11/07/19 20:00 115/63 11/07/19 20:00 40 11/07/19 19:45 110 21 120/59 (79) 94 11/07/19 19:30 108 16 40 11/07/19 19:30 108 21 120/52 (74) 87 11/07/19 19:23 109 11/07/19 19:00 109 23 110/59 (76) 95 11/07/19 19:00 121/52 11/07/19 18:30 104 21 121/83 (96) 94 11/07/19 18:00 96 18 111/64 (80) 94 11/07/19 18:00 116/46 11/07/19 17:30 99 20 111/64 (80) 94 I&O Intake and Output 11/07/19 11/08/19 18:59 06:59 Intake Total 2349.375 ml 1613.05 ml Output Total 225 ml 255 ml Balance 2124.375 ml 1358.05 ml IV Total 2349.375 ml 1353.05 ml Tube Feeding 150 ml Other 110 ml Output Urine Total 225 ml 255 ml # Bowel Movements 1 2 Dressing: other Wound: other Drains: other Cardiovascular: RSR Respiratory: decreased breath sounds Abdomen: soft, non-tender, present bowel sounds Extremities: no cyanosis Laboratory Tests Test 11/08/19 02:30 11/08/19 04:00 11/08/19 06:40 11/08/19 07:30 Urine Eosinophils None seen (NONE SEEN) White Blood Count 5.6 K/UL (4.8-10.8) Red Blood Count 3.01 M/UL (4.70-6.10) L Hemoglobin 8.4 G/DL (14.2-18.0) L Hematocrit 25.4 % (42.0-52.0) L Mean Corpuscular Volume 84 FL (80-99) Mean Corpuscular Hemoglobin 28.0 PG (27.0-31.0) Mean Corpuscular Hemoglobin Concent 33.2 G/DL (32.0-36.0) Red Cell Distribution Width 15.0 % (11.6-14.8) H Platelet Count 37 K/UL (150-450) L Mean Platelet Volume 9.3 FL (6.5-10.1) Neutrophils (%) (Auto) % (45.0-75.0) Lymphocytes (%) (Auto) % (20.0-45.0) Monocytes (%) (Auto) % (1.0-10.0) Eosinophils (%) (Auto) % (0.0-3.0) Basophils (%) (Auto) % (0.0-2.0) Differential Total Cells Counted 100 Neutrophils % (Manual) 77 % (45-75) H Lymphocytes % (Manual) 5 % (20-45) L Monocytes % (Manual) 4 % (1-10) Eosinophils % (Manual) 3 % (0-3) Basophils % (Manual) 0 % (0-2) Band Neutrophils 11 % (0-8) H Platelet Estimate Decreased L Platelet Morphology Normal Hypochromasia 1+ Anisocytosis 1+ Sodium Level 133 MMOL/L (136-145) L Potassium Level 3.6 MMOL/L (3.5-5.1) Chloride Level 98 MMOL/L (98-107) Carbon Dioxide Level 25 MMOL/L (21-32) Anion Gap 10 mmol/L (5-15) Blood Urea Nitrogen 51 mg/dL (7-18) H Creatinine 3.1 MG/DL (0.55-1.30) H Estimat Glomerular Filtration Rate 23.9 mL/min (>60) Glucose Level 125 MG/DL (74-106) H Lactic Acid Level 4.30 mmol/L (0.4-2.0) H 4.80 mmol/L (0.66-2.22) H Uric Acid 5.4 MG/DL (2.6-7.2) Calcium Level 7.1 MG/DL (8.5-10.1) L Phosphorus Level 2.7 MG/DL (2.5-4.9) Magnesium Level 1.9 MG/DL (1.8-2.4) Total Bilirubin 4.3 MG/DL (0.2-1.0) H Direct Bilirubin 3.9 MG/DL (0.0-0.3) H Aspartate Amino Transf (AST/SGOT) 33 U/L (15-37) Alanine Aminotransferase (ALT/SGPT) 24 U/L (12-78) Alkaline Phosphatase 105 U/L (46-116) Ammonia 62 umol/L (11-32) H Troponin I 0.142 ng/mL (0.000-0.056) C-Reactive Protein, Quantitative 20.7 mg/dL (0.00-0.90) H Pro-B-Type Natriuretic Peptide > 75038 pg/mL (0-125) H Total Protein 4.7 G/DL (6.4-8.2) L Albumin 1.3 G/DL (3.4-5.0) L Globulin 3.4 g/dL Albumin/Globulin Ratio 0.4 (1.0-2.7) L Thyroid Stimulating Hormone (TSH) 2.052 uiU/mL (0.358-3.740) Arterial Blood pH 7.425 (7.350-7.450) Arterial Blood Partial Pressure CO2 36.6 mmHg (35.0-45.0) Arterial Blood Partial Pressure O2 45.5 mmHg (75.0-100.0) Arterial Blood HCO3 23.5 mmol/L (22.0-26.0) Arterial Blood Oxygen Saturation 81.4 % (95-100) *L Arterial Blood Base Excess -0.7 (-2-2) Manny Test Positive Test 11/08/19 10:10 11/08/19 16:00 Lactic Acid Level 5.50 mmol/L (0.4-2.0) H 6.00 mmol/L (0.4-2.0) H Plan Problems: (1) Cardiac arrest (2) Suspected 2019 novel coronavirus infection Assessment & Plan: Bilateral diffuse alveolar densities likely pulmonary edema. Superimposed infiltrates cannot be excluded. Bilateral effusions right greater than left. (3) Urinary tract infection (4) Atrial fibrillation with RVR (5) HCAP (healthcare-associated pneumonia) (6) Septic shock Assessment & Plan: 74M cardiac arrest currently intubated in ICU cxr noted labs reviewed LE necrosis dry gangrene no active superimposed infection noted no drainage right groin line okay trend labs will follow with recs thank you DAILY ESTIMATED NEEDS: Needs based on Critical care, wounds, 79.4kg 22-30 kcals/kg 0884-6869 total kcals 1.25-2 g protein/kg 99-159 g total protein 25-30 mL/kg 8082-3508 total fluid mLs NUTRITION DIAGNOSIS: Swallowing difficulty r/t resp status as evidenced by s/p code blue, now intubated, OGT in place, NPO. (CURRENT DIET: NPO) ENTERAL NUTRITION RECOMMENDATIONS: VITAL 1.2 goal of 65ml/hr x24 hrs to provide 1560ml, 1872 kcal, 117g pro, 1265ml free H2O - As medically able w/ stability rec to initiate OGT feeds of Vital 1.2. - Start @25ml/hr for 6 hrs, advance as tolerated 10ml/hr q4-6 hrs to goal. - Flush per MD, HOB over 30 degrees ADDITIONAL RECOMMENDATIONS: 1) F/up w/ WC eval; pt currently NPO, unable to provide modulars 2) Maintain calibrated bed scale wts 3) replete lytes as needed (K 3.4), check daily 4) NISS w/ accuchecks for glycemic control. 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 Dry Gangrene and multiple pressure injuries. All 10 digits of both R and L hands are necrotic and leathery. No odor noted. Necrotic area noted to dorsal R hand. Wound is malodorous. No exudate noted. Loose dry necrotic area with surrounding hyperpigmentation lateral R knee. Wound inferior to R knee that is 100% necrotic and dry with semidetached borders. NO odor or exudate noted. R heel,lateral R malleolus, Dorso/plantar R foot including all 5 metatarsals are necrotic,dry and leathery. Wounds are malodorous.No exudate noted. Two dry necrotic ulcers noted to posterior Upper L thigh(#1) most medial posterior L thigh -Base of wound is necrotic with surrounding fibrinous slough along borders. No door noted. (#2) In close Proximity to above wound is dry necrotic ulcer with surrounding dry ,black borders. No odor noted. Medial L Tibia, L Heel , Dorso/Plantar L foot including all 5 metatarsals are necrotic, leathery and dry.Wound are malodorous. Full thickness pressure injury Lumbar/Sacral area.(L)8.5cm x (W)2.7cm. Base of wound is miguelito with Scattered slough . Bone is palpable. edges are moist ,pink and adherent to base of wound .Periwound is maroon in colour. Small amt serous exudate noted. No elevation in skin temp periwound. Full thickness pressure injury Sacrococcygeal area.(L)8.8cm x (W)8cm x (D) 1.7cm. Base of wound is 60%beefy red, 40% necrotic at center base of wound Bone is palpable. Edges are macerated with surrounding black and maroon borders that are fluctuant. Wound is malodorous. Small amt serous exudate noted. Additional shearing with maroon discoloration noted to R and L clefts of buttocks,R and L ischium. Partial thickness pressure injury lower L buttocks. Base of wound is moist and viable(L)0.8cm x (W)2.2cm.Periwound is maroon and indurated. Tx.Plan: Apply Betadine to both hands.Wrap R hand loosely with Kerlix Gauze. Cleanse wounds Lumbar -sacral and sacral area with Saline. Apply Therahoney. Apply Moisture Barrier periwound. Cover each wound with Optifoam drsg. Change Daily and prn. Apply Moisture Barrier Paste to Clefts of buttocks, R and L ischium, and scrotum with each Incontinence care. Apply Betadine asa to wounds R lower ext and R foot Daily. Cover R foot with ABD pads and wrap loosely with Kerlix every 3 days and prn. Apply Betadine asa to L lower ext and L foot wounds. Cover L foot wounds with ABD Pads .Wrap loosely with Kerlix every 3 days and prn. Reposition at least every 2hours or as tolerated. Off-load heels with Pillow. Air Fluidized Mattress. (12) Alzheimer disease Bradley Vazquez Nov 08, 2019 17:09
[2019-11-08] MEDS: Norepinephrine Bitartrate 8 MG in D5W 500ml 550 ML IV SCH ×2 (18:05→22:16)
[2019-11-08] MEDS: Dyna-Hex 2% Top Sol 2oz TOPIC SCH (20:24)
[2019-11-09] VITALS (27 sets, daily range): BP systolic 34–118; BP diastolic 20–54
[2019-11-09] MEDS ORDERED: DOPamine 400mg/250ml 250 ML IV ONE (00:51)
[2019-11-09] MEDS ORDERED: DOPamine 400mg/250ml 250 ML IV SCH (01:00)
[2019-11-09] MEDS: Meropenem 1 GM in NS 55 ML IVPB SCH (01:04)
[2019-11-09] MEDS: Norepinephrine Bitartrate 8 MG in D5W 500ml 550 ML IV SCH (02:40)
[2019-11-09] MEDS: D5NS 1,000 ML IV SCH (04:33)
[2019-11-09] MEDS ORDERED: D5NS 1000ml IV ONE ×2 (05:35)
[2019-11-09] MEDS ORDERED: Tubing IV Blood Pump IV ONE (05:35)
[2019-11-09] MEDS ORDERED: Tubing IV Secondary IV ONE (05:35)
[2019-11-09] MEDS ORDERED: D5W 275ml ONE ×2 (05:35)
[2019-11-09] MEDS ORDERED: NS 275ml ONE ×2 (05:35)
--- NOTE | 2019-11-09 06:18 | Emergency Room Report ---
Physical Exam Vital Signs Date Time Temp Pulse Resp B/P (MAP) Pulse Ox O2 Delivery O2 Flow Rate FiO2 11/05/19 14:47 98.4 92 18 130/76 (94) 94 Nasal Cannula 2.0 11/05/19 22:25 100 Medical Decision Making Diagnostic Impression: Primary Impression: Respiratory failure requiring intubation Additional Impressions: HCAP (healthcare-associated pneumonia) Septic shock ER Course Called to patient bedside to pronounce time of . Patient is admitted for sepsis respiratory failure status post intubation. He has subsequently been made DNR by family. Patient has been admitted to the ICU and found asystole at 0 522. I was called to patient bedside to evaluate. Patient was intubated and being ventilated. No palpable pulse, no heart sounds, no corneal response, asystole on monitor. Time of pronounced at 0536 Last Vital Signs Date Time Temp Pulse Resp B/P (MAP) Pulse Ox O2 Delivery O2 Flow Rate FiO2 11/09/19 05:15 40 17 34/20 (25) 11/09/19 05:00 31 11/09/19 04:30 98.0 11/09/19 04:00 100 11/09/19 04:00 Mechanical Ventilator 11/05/19 21:25 2.0 Disposition: ADMITTED INPATIENT Condition: Critical Referrals: Zenon Bradley MD (PCP) Dominick Reich MD Nov 09, 2019 06:18
--- NOTE | 2019-11-09 08:00 | Progress Note ---
DATE: 11/08/2019 CARDIOLOGY PROGRESS NOTE SUBJECTIVE: The patient remains in the intensive care unit. Condition remains critical with guarded prognosis. The case was reviewed with ICU staff. The patient is on high-dose pressors with marginal blood pressure parameters in addition to midodrine. He is on broad-spectrum antimicrobials. The patient also remains with poor urine output. PHYSICAL EXAMINATION: VITAL SIGNS: Blood pressure 84/47, heart rate 108, respirations 25, afebrile. The patient's monitored rhythm is sinus tachycardia. He has had episodes of bradycardia. EXTREMITIES: Ischemic changes of the feet. NEUROLOGIC: Poorly responsive. LUNGS: Bilateral rhonchi. CARDIAC: Regular rhythm. Rapid rate. Normal S1, S2. ABDOMEN: Soft and slightly distended. LABORATORY DATA: Sodium 133, potassium 3.6, bicarb 25, BUN 51, creatinine 3.1. Pro natriuretic peptide over 35,000. Albumin 1.3. Troponin 0.142. ABG 7.42/37/45. White count 5.6, hemoglobin 8.4, platelets 37,000. MEDICATIONS: List reviewed. IMPRESSION: 1. Sepsis. 2. Shock. 3. Severe protein-calorie malnutrition. 4. Thrombocytopenia. 5. Anemia. 6. Hypoxia. 7. Acute renal failure. 8. Acute on chronic diastolic congestive heart failure. 9. Acute myocardial ischemia and possible non-ST elevation infarction. 10. Critical and guarded. PLAN: 1. Continue pressors. 2. Fluid challenge. 3. Transfuse platelets for active bleeding. 4. Cannot diurese at this time. 5. Serial troponin level. 6. Antimicrobials and respiratory hygiene. 7. Remains critical and guarded. Andre Brannon M.D. DR: GÓMEZ JOB#: [id number] CC:
--- NOTE | 2019-11-09 08:45 | Progress Note ---
DATE: 11/08/2019 SUBJECTIVE: The patient is afebrile, but hypotensive. PHYSICAL EXAMINATION: VITAL SIGNS: Blood pressure is 70/44, his pulse is 102, respirations are 19, and FiO2 is 100. HEENT: Eyes were normal. ENT, mucous membranes moist and intact. NECK: Supple with no JVD without lymph nodes. Tracheostomy site is clean. LUNGS: Clear without rhonchi, rales, or wheezing. HEART: Normal sounds with regular beats. There is no tachycardia at rest. ABDOMEN: Soft and nontender with normal bowel sounds. Gastrostomy site is clean. EXTREMITIES: Warm without cyanosis, clubbing, or edema. LABORATORY DATA: His is hemoglobin is 8.4, hematocrit 25.4 with MCV of 84, WBC of 5.6, and platelets of . His lactic acid has increased from 4.3 at 4 a.m. to again on 11/08/2019 to 6. Blood culture grew gram-negative bacilli on two separate occasions. 02 grew Acinetobacter baumannii complex with gram-negative bacilli. ASSESSMENT AND PLAN: The patient is on norepinephrine per hour, which means 30 mcg/min. Today, the patient is on meropenem 1 g IV piggyback q.12h. and was on vancomycin until yesterday. Zenon Bradley M.D. DR: SHANNON JOB#: [id number] CC:
--- NOTE | 2019-11-11 16:11 | Discharge Summary ---
Discharge Summary Discharge Summary _ DATE OF ADMISSION: 11/05/2019 DATE OF DISCHARGE: 11/09/2019 BRIEF SUMMARY: Patient is an unfortunate 74-year-old male, who is a resident of an extended care facility where he arrived in the facility several weeks prior. He was known to have several chronic medical syndrome and had been stable on his medications. On the day of admission, he developed intermittent chest pain that got progressively worse. He was then transferred to [facility] ER where he was found to have urinary infection, sepsis and pneumonia. There was also suspicion of COVID syndrome. On evaluation at ED, troponin was noted to be elevated. EKG showed atrial fibrillation with RVR. Troponin was noted to be elevated. D-dimer was positive. Chest x-ray showed diffuse alveolar densities likely pulmonary edema , unable to exclude superimposed infiltrates. He was initially transferred to monitored floor, however he developed hypotension and bradycardic arrest. He was orally intubated and was hooked on mechanical ventilation. Central line was inserted to the right femoral. He was transferred to ICU. While in ICU, his condition remained critical. He was on IV pressors. Serial chest x-ray showed bilateral extensive lung infiltrates compatible with multifocal pneumonia. Urine culture showed growth of E. coli. Blood culture with gram-negative rods. He was initially given IV vancomycin and meropenem. He was given IV fluids. He was noted to have multiple dry gangrene wounds on both hands, right lateral knee, right and left foot. He has full-thickness pressure injury on the lumbosacral and sacrococcygeal area. He had additional shearing noted to the right and left cleft of buttocks, right and left ischium. He had partial- thickness pressure injury on lower left buttock. He was placed on air- fluidized mattress. He was given wound care with frequent repositioning and offloading. Hemoglobin dropped to 7.9. He was given 1 unit packed RBC. He was given mag sulfate supplements IV. Platelet counts were decreasing. HIV and hepatitis panel were negative. Heparin for DVT was discontinued. COVID-19 test by PCR was negative. Blood culture grew E. coli. He was continued on meropenem. Sputum culture showed MDR Acinetobacter. Po Levaquin was added to his regimen. Patient condition remained poor and guarded. CODE STATUS was changed to DNR by family. On 10/10/2019, patient went into asystole. There was no palpable pulse, no heart sounds, no corneal response. Patient was pronounced at 0536. FINAL DIAGNOSES: Status post bradycardic cardiac arrest, vent dependent respiratory failure on 11/05/2019 Septic shock Healthcare associated pneumonia Persistent bacteremia Thrombocytopenia Anemia requiring blood transfusion Severe protein calorie malnutrition Multiple wounds, present on admission Acute kidney injury Acute on chronic diastolic CHF Acute myocardial ischemia and possible non-ST elevated MS Pleural effusion CVA Dysphagia BPH Hypertension COPD DISPOSITION: Patient . I have been assigned to complete a discharge summary on this account, I was not involved with the patient's management.--JODI Spear Jacqueline Robles NP Nov 11, 2019 16:11
== END 2019-11-09 05:36 | disposition expired | DRG 720 ==
LOC: EDBD 14:42 → EMR 15:20 → 2W 18:20 → EDBEDREQSVC 19:19 → EDBEDREQ 19:19 → ICU 22:31
PROC: 06HM33Z Insertion of Infusion Device into Right Femoral Vein, Percutaneous Approach (ICD-10-PCS; principal; 2019-11-05)
PROC: 0BH17EZ Insertion of Endotracheal Airway into Trachea, Via Natural or Artificial Opening (ICD-10-PCS; principal; 2019-11-05)
PROC: 5A1945Z Respiratory Ventilation, 24-96 Consecutive Hours (ICD-10-PCS; principal; 2019-11-05)
DX: A41.9 Sepsis, unspecified organism (principal); R65.21 Severe sepsis with septic shock; J18.9 Pneumonia, unspecified organism; N17.9 Acute kidney failure, unspecified; J44.0 Chronic obstructive pulmonary disease with (acute) lower respiratory infection; N39.0 Urinary tract infection, site not specified; R00.1 Bradycardia, unspecified; J96.01 Acute respiratory failure with hypoxia; Z86.73 Personal history of transient ischemic attack (TIA), and cerebral infarction without residual deficits; I11.0 Hypertensive heart disease with heart failure; I50.33 Acute on chronic diastolic (congestive) heart failure; G93.40 Encephalopathy, unspecified; Z74.01 Bed confinement status; I48.91 Unspecified atrial fibrillation; Z66 Do not resuscitate; G30.9 Alzheimer's disease, unspecified; F02.80 Dementia in other diseases classified elsewhere, unspecified severity, without behavioral disturbance, psychotic disturbance, mood disturbance, and anxiety; R13.10 Dysphagia, unspecified; I70.263 Atherosclerosis of native arteries of extremities with gangrene, bilateral legs; E88.09 Other disorders of plasma-protein metabolism, not elsewhere classified; E87.6 Hypokalemia; E83.42 Hypomagnesemia; I21.4 Non-ST elevation (NSTEMI) myocardial infarction; I27.20 Pulmonary hypertension, unspecified; Z99.11 Dependence on respirator [ventilator] status; D69.6 Thrombocytopenia, unspecified
CPT/HCPCS: 31500; 36415; 36600; 71045; 74018; 80053; 80069; 80162; 80202; 81001; 82140; 82248; 82533; 82550; 82607; 82728; 82746; 82803; 82962; 82977; 83036; 83540; 83550; 83605; 83690; 83735; 83880; 84100; 84300; 84443; 84484; 84550; 85007; 85025; 85379; 85610; 85651; 85730; 86140; 86703; 86705; 86709; 86803; 86850; 86900; 86901; 86920; 87040; 87070; 87081; 87086; 87181; 87205; 87340; 89050; 93005; 93306; 94002; 94003; 94664; 96365; 96367; 96372; 96375; 99291; J7030; J8499